=== PATIENT | female | born 1935 | race Caucasian/White ===

== ENCOUNTER 2020-08-22 14:22 | Outpatient (REF) | payer MEDICARE, SELFPAY ==
--- NOTE | 2020-08-22 | US_ITS ---
EXAMINATION: US EXTRACRANIAL CAROTID DUPLEX, BILATERAL CLINICAL INFORMATION: This is a 84-year-old female with coronary artery disease. Carotid artery disease. COMPARISON: Comparison is made to a study dated 12/13/2019 which demonstrated bilateral 50-79% internal carotid artery stenoses. TECHNIQUE: Real-time ultrasound and Doppler techniques (integrating B-mode 2-D vascular images, Doppler spectral analysis and color-flow Doppler imaging) were utilized to interrogate the extracranial carotid arteries, the vertebral arteries and proximal subclavian arteries bilaterally. The degree of stenosis is determined by criteria similar to NASCET. FINDINGS: Right Side: 1. There is moderate atherosclerotic plaque seen in the bifurcation/proximal ICA region. 2. The common carotid artery PSV proximally is 114 cm/s and distally 123 cm/s. 3. The proximal internal carotid artery velocities are 165 cm/s systolic and 33 cm/s diastolic. 4. The proximal external carotid artery PSV is 134 cm/s. 5. The vertebral artery shows antegrade flow. 6. The subclavian artery waveforms are normal. Left Side: 1. There is moderate atherosclerotic plaque seen in the bifurcation/proximal ICA region. 2. The common carotid artery PSV proximally is 117 cm/s and distally 136 cm/s. 3. The proximal internal carotid artery velocities are 181 cm/s systolic and 30 cm/s diastolic. 4. The proximal external carotid artery PSV is 194 cm/s. 5. The vertebral artery shows antegrade flow. 6. The subclavian artery waveforms are normal. US/US carotid duplex BI IMPRESSION: 1. RIGHT: Moderate, hemodynamically significant stenosis of the proximal right internal carotid artery corresponding to a 50-79% stenosis by velocity criteria. 2. LEFT: Moderate, hemodynamically significant stenosis of the proximal left internal carotid artery corresponding to a 50-79% stenosis by velocity criteria. 3. There is no change in the category severity of disease when compared to the previous study dated 12/13/2019 .
== END 2020-08-22 14:23 | disposition home or self-care (01) ==
LOC: HO.HMGCX 14:22
PROVIDERS: PCP Internal Medicine; Visit Provider Nurse Practitioner Family
DX: I25.10 Atherosclerotic heart disease of native coronary artery without angina pectoris (principal); I65.23 Occlusion and stenosis of bilateral carotid arteries
CPT/HCPCS: 93880

== ENCOUNTER → 2020-09-09 14:07 | Outpatient (BNVA) | payer MEDICARE, SELFPAY | PROVIDERS: PCP Internal Medicine; Referring Provider Internal Medicine; Visit Provider Internal Medicine | DX: I25.10 Atherosclerotic heart disease of native coronary artery without angina pectoris (principal); R06.02 Shortness of breath; I65.23 Occlusion and stenosis of bilateral carotid arteries; E78.5 Hyperlipidemia, unspecified; Z79.82 Long term (current) use of aspirin | CPT/HCPCS: 99212 ==

== ENCOUNTER 2020-09-11 16:14 | Outpatient (REF) | payer MEDICARE, SELFPAY ==
--- NOTE | 2020-09-11 16:18 | CT_ITS ---
EXAMINATION: CT CHEST WITHOUT CONTRAST CLINICAL INFORMATION: Right upper lobe lung cancer COMPARISON: Previous chest CT most recent February 2020 TECHNIQUE: Multidetector volumetric CT imaging of the chest was done. Axial MIP volume rendering provided. Sagittal and coronal reformatted images were obtained. This CT examination was performed using dose optimization techniques as appropriate, variously including the following: *Automated exposure control *Adjustment of mA and/or kV according to patient size (this includes techniques or standardized protocols for targeted exams where dose is matched to indication/reason for exam; i.e. 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 There is a parenchymal density measuring 0.8 x 1.6 mm adjacent to the surgical staple line in the right middle lobe axial image 167 series. This is stable and probably represents scarring. The lungs are otherwise clear. MEDIASTINUM: There is evidence of atherosclerotic disease. The heart does not appear enlarged. There is coronary artery calcification. The thoracic aorta is heavily calcified but normal in caliber. There are no enlarged hilar or mediastinal lymph nodes. PLEURA: There is no pleural effusion. No pleural mass or thickening. AXILLA: No lymphadenopathy. UPPER ABDOMEN: The gallbladder has been removed. OSSEOUS STRUCTURES: There are degenerative changes of the spine. CT/CT chest wo con IMPRESSION: Stable postsurgical changes following right upper lobe lobectomy.
== END 2020-09-11 16:15 | disposition home or self-care (01) ==
LOC: HO.CT 16:14
PROVIDERS: Visit Provider Surgery
DX: C34.11 Malignant neoplasm of upper lobe, right bronchus or lung (principal)
CPT/HCPCS: 71250

== ENCOUNTER 2020-09-16 11:29 | Outpatient (REF) | payer MEDICARE, SELFPAY ==
[2020-09-16 14:41] LABS: Anion Gap 13 (12-20); Blood Urea Nitrogen 25 mg/dL (9-16); Calcium 9.5 mg/dL (8.4-10.2); Carbon Dioxide 29 mmol/L (22-29); Chloride 103 mmol/L (96-108); Cholesterol 151 mg/dL; Estimated Glomerular Filt Rate 55; Glucose Fasting 85 mg/dL (60-99); HDL Cholesterol 54 mg/dL; LDL Cholesterol Calculated 62 mg/dl; Potassium 4.3 mmol/l (3.3-5.1); Sodium 141 mmol/L (135-145); Triglycerides 176 mg/dL
== END 2020-09-16 11:30 | disposition home or self-care (01) ==
LOC: HO.HMGCLDS 11:29
PROVIDERS: PCP Internal Medicine; Visit Provider Internal Medicine
DX: E78.5 Hyperlipidemia, unspecified (principal); I10 Essential (primary) hypertension; J45.909 Unspecified asthma, uncomplicated; E66.9 Obesity, unspecified
CPT/HCPCS: 80048; 80061

== ENCOUNTER → 2020-10-03 11:00 | Outpatient (BNVA) | payer MEDICARE, SELFPAY | PROVIDERS: PCP Internal Medicine; Referring Provider Internal Medicine; Visit Provider Surgery | DX: C34.11 Malignant neoplasm of upper lobe, right bronchus or lung (principal) | CPT/HCPCS: 99214 ==

== ENCOUNTER 2020-11-03 08:35 | Outpatient (REF) | payer MEDICARE, SELFPAY ==
--- NOTE | 2020-11-03 08:38 | MM_ITS ---
EXAMINATION: MM SCREENING DIGITAL BREAST TOMOSYNTHESIS, BILATERAL CLINICAL INFORMATION: Screening. Asymptomatic. The lifetime risk of breast cancer based on the Tyrer-Cuzick Model is under 1%. COMPARISON: Mammography: 08/17/2019, 07/17/2018, 06/28/2017 TECHNIQUE: Digital breast tomosynthesis is performed in both the craniocaudal and mediolateral oblique views along with computer-aided detection (CAD). Synthesized 2D images are generated from the tomosynthesis. Additional left MLO view is provided. Technologist notes technically challenging exam with positioning. Exam tailored to patient capabilities. FINDINGS: There are scattered areas of fibroglandular density (ACR BI-RADS breast composition Category b). There are no significant masses, abnormal calcifications, or other abnormalities. Parenchymal pattern is similar to prior studies. There are increased bilateral benign ductal secretory calcifications as well as some scattered benign round calcifications in each breast. Small circumscribed nodule mid upper right breast on MLO view is similar to prior exams. There is no developing density. No significant changes. MM/MM tomosynthesis screening BI IMPRESSION: No mammographic evidence of malignancy. ASSESSMENT: BI-RADS 2: Benign RECOMMENDATION: Routine annual mammography screening. This patient's information was entered into a reminder system with a target due date for their next mammogram.
== END 2020-11-03 08:36 | disposition home or self-care (01) ==
LOC: HO.MAMMO 08:35
PROVIDERS: PCP Internal Medicine; Visit Provider Internal Medicine
DX: Z12.31 Encounter for screening mammogram for malignant neoplasm of breast (principal)
CPT/HCPCS: 77063; 77067

== ENCOUNTER → 2020-12-08 08:30 | Outpatient (REF) | payer MEDICARE, SELFPAY ==
--- NOTE | ~2020-12-08 | US_ITS ---
EXAMINATION: US EXTRACRANIAL CAROTID DUPLEX, BILATERAL CLINICAL INFORMATION: This is an 84-year-old female with carotid stenosis or occlusion. Carotid artery disease. COMPARISON: Comparison is made to a previous study dated 08/22/2020 which demonstrated bilateral 50-79% internal carotid artery stenoses. TECHNIQUE: Real-time ultrasound and Doppler techniques (integrating B-mode 2-D vascular images, Doppler spectral analysis and color-flow Doppler imaging) were utilized to interrogate the extracranial carotid arteries, the vertebral arteries and proximal subclavian arteries bilaterally. The degree of stenosis is determined by criteria similar to NASCET. FINDINGS: Right Side: 1. There is moderate atherosclerotic plaque seen in the bifurcation/proximal ICA region. 2. The common carotid artery PSV proximally is 109 cm/s and distally 117 cm/s. 3. The proximal internal carotid artery velocities are 153 cm/s systolic and 22 cm/s diastolic. 4. The proximal external carotid artery PSV is 166 cm/s. 5. The vertebral artery shows antegrade flow. 6. The subclavian artery waveforms are normal. Left Side: 1. There is moderate atherosclerotic plaque seen in the bifurcation/proximal ICA region. 2. The common carotid artery PSV proximally is 94 cm/s and distally 113 cm/s. 3. The proximal internal carotid artery velocities are 160 cm/s systolic and 29 cm/s diastolic. 4. The proximal external carotid artery PSV is 190 cm/s. 5. The vertebral artery shows retrograde flow. 6. The subclavian artery waveforms are 123. US/US carotid duplex BI IMPRESSION: 1. RIGHT: Moderate, hemodynamically significant stenosis of the proximal right internal carotid artery corresponding to a 50-79% stenosis by velocity criteria. The category severity of disease appears unchanged when compared to the previous study dated 08/22/2020. 2. LEFT: Moderate, hemodynamically significant stenosis of the proximal left internal carotid artery corresponding to a 50-79% stenosis by velocity criteria. The category severity of disease appears unchanged when compared to the previous study dated 08/22/2020 3. There is an arrhythmia noted during the duplex portion of the examination. 4. It is now noted that the left vertebral artery is retrograde. Previously, this was antegrade. There may be a left subclavian steal developing.
--- NOTE | 2020-12-08 08:32 | CA_ITS ---
Transthoracic Echocardiogram Patient (Last, First, Middle): Dai Cook P Gender: Female Date of : 1935 Age: 84 Procedure Date: 12/08/2020 Procedure Type: Transthoracic Echocardiogram Location: OP Height: 157.48 cm Weight: 90.72 kg BSA: 1.91 m2 Heart Rate: bpm BP: 120 / 60 mmHg Resident Care Manager Rn: LAMAR Referring MD: Jaden Quesada MD Symptoms: I25.10 - Atherosclerotic heart disease of [place] coronary artery without angina pectoris Study Quality: Good ECG Rhythm: Sinus Conclusions: - The left ventricular systolic function is normal. The visually estimated ejection fraction is between 55-60%. - The basal inferior segment is hypokinetic. - There is mild calcification of the aortic valve. - No obvious valvular pathology seen on this study. Findings Left Ventricle Normal left ventricular cavity size. There is normal left ventricular wall thickness. The left ventricular systolic function is normal. The visually estimated ejection fraction is between 55-60%. Diastolic function is normal for age. Wall Motion Rest Echo Findings The basal inferior segment is hypokinetic. Right Ventricle Normal right ventricular cavity size and systolic function. Atria Both atria are normal in size. Aortic Valve There is a normal trileaflet aortic valve. There is mild calcification of the aortic valve. There is no aortic valve stenosis. There is no aortic valve regurgitation. Mitral Valve The mitral valve appears normal. There is trace mitral valve regurgitation. There is no mitral valve stenosis. Pulmonic Valve The pulmonic valve was not well visualized. Tricuspid Valve Normal tricuspid valve structure. There is mild tricuspid valve regurgitation. The pulmonary artery systolic pressure is normal. Great Vessels The aortic annulus, sinuses of valsalva, and asc aorta are normal in size. Venous The inferior vena cava is normal in size and collapses greater than 50% with inspiration. Pericardium/Pleural There is no evidence of pericardial effusion. Prior Study Comparison Changes noted compared to prior study dated: 03/01/2019. See comments on wall motion. Recommendations, Care & Conclusions No obvious valvular pathology seen on this study. Measurements 2D Linear Measurements IVSd: 1.03 0.6-0.9/0.6-1.0 cm LVIDd: 3.62 3.9-5.3/4.2-5.9 cm LVIDd Index: 1.90 2.4-3.2/2.2-3.1 cm/m2 LVIDs: 2.60 2.0-3.6 cm LVPWd: 1.02 0.7-1.1 cm Ao Root: 3.00 2.1-3.5 cm LA Diam: 3.40 2.7-3.8/3.0-4.0 cm LAIDs Index: 1.78 1.5-2.3 cm/m2 LV Mass: 140.24 67-162/88-224 g LV Mass Index: 73.42 43-95/49-115 g/m2 LVOT Diam: 2.00 3.0+(-)1.3 cm 2D Systolic Function EF 4C: 54.00 >55% EF 2C: 56.50 >55% EF BiP: 55.10 >55% Mitral Valve MV Pk E: 1.03 MV PK A: 1.28 MV Decel Time: 236.00 E/A: 0.80 E'Lateral: 6.96 E'Medial: 6.53 E/E' Med: 15.80 E/E' Lat: 14.80 PHT: 69.00 MVA PHT: 3.19 Decel Casey: 4.36 Aortic Valve AoV Pk [place]: 1.49 AoV Mn [place]: 0.98 AoV VTI: 0.36 AoV Pk Grad: 9.00 Aov Mn Grad: 4.00 RACHEL Cont.VTI: 2.26 LVOT LVOT Pk [place]: 1.07 LVOT Mn [place]: 0.74 LVOT VTI: 0.26 LVOT Pk Grad: 5.00 LVOT Mn Grad: 2.00 LVOT Diam: 2.00 LVOT Area: 3.14 Diastolic Function MV Pk E: 1.03 MV Pk A: 1.28 E/A: 0.80 E'Medial: 6.53 E/E' Med: 15.80 E' Laterial: 6.96 E/E' Lat: 14.80 Tricuspid Valve TR Pk [place]: 2.74 TR Pk Grad: 30.00 RA Press: 3.00 RVSP: 33.00 Great Vessels Aorta Ao Root-2D: 3.00 2.0-3.7 cm Ao Asc: 3.00 2.1-3.4 cm Ao Arch: 2.50 Updated in Other Vendor System with Status of Final Jaden Quesada MD electronically signed on 12/09/2020 1:52:06 PM with status of Final
== END ==
LOC: HO.CARD 08:30
PROVIDERS: Visit Provider Internal Medicine
DX: I65.23 Occlusion and stenosis of bilateral carotid arteries (principal); I25.10 Atherosclerotic heart disease of native coronary artery without angina pectoris
CPT/HCPCS: 93306; 93880

== ENCOUNTER → 2020-12-18 07:43 | Outpatient (BNVA) | payer MEDICARE, SELFPAY | PROVIDERS: PCP Internal Medicine; Visit Provider Internal Medicine | DX: I25.10 Atherosclerotic heart disease of native coronary artery without angina pectoris (principal); R06.02 Shortness of breath; E78.5 Hyperlipidemia, unspecified; I65.23 Occlusion and stenosis of bilateral carotid arteries; I49.9 Cardiac arrhythmia, unspecified | CPT/HCPCS: 93005; 99212 ==

== ENCOUNTER → 2021-01-15 08:57 | Outpatient (REF) | payer MEDICARE, SELFPAY ==
--- NOTE | 2021-01-15 11:15 | ECG_ITS ---
Hook-up date: 2021-01-15 09:11:00 Duration: 28:04:00 Test Indications: CARDIAC ARRHYTHMIA, UNSPECIFIED Medications: 380804 QRS complexes 269 Ventricular ectopics which represent <1 % of total QRS comp. 2344 Supraventricular ectopics which represent 2 % of total QRS comp. * Paced QRS complexs which represent % of total QRS comp. VENTRICULAR ECTOPY 267 Isolated 0 Bigeminal Cycles 1 Couplets 0 Runs 0 Beats in Runs * Beats LONGEST at * BPM at :: -- * Beats FASTEST at * BPM at :: -- SUPRAVENTRICULAR ECTOPY 1667 Isolated 154 Couplets 63 Runs 369 Beats in Runs 29 Beats LONGEST at 96 BPM at 07:53:36 2021-01-16 3 Beats FASTEST at 120 BPM at 21:46:42 2021-01-15 HEART RATES 51 MIN at 04:55:52 2021-01-16 76 AVG 106 MAX at 17:29:48 2021-01-15 LONGEST RR 1.8800 secs at 04:19:58 2021-01-16 S-T LEVELS Channel 1 - 128 mm at 09:11:00 2021-01-15 - 128 mm at 09:11:00 2021-01-15 Channel 2 - 128 mm at 09:11:00 2021-01-15 - 128 mm at 09:11:00 2021-01-15 Channel 3 - 128 mm at 02:83:01 -- - 128 mm at 02:83:01 Underlying rhythm is sinus with prolonged KS; Average ventricular rate 76/min; Frequent supraventricular ectopy (2%); Mostly isolated; longest run 29 beats at 96/min; Rare PVCs, isolated with one couplet; Patient diary not available for review. Referred By: Maurice Villagomez Overread By: MAURICE VILLAGOMEZ
== END ==
LOC: HO.CARD 08:57
PROVIDERS: PCP Internal Medicine; Visit Provider Internal Medicine
DX: I49.9 Cardiac arrhythmia, unspecified (principal)
CPT/HCPCS: 93226

== ENCOUNTER → 2021-06-22 08:52 | Outpatient (BNVA) | payer MEDICARE, SELFPAY | PROVIDERS: PCP Internal Medicine; Visit Provider Internal Medicine | DX: I25.10 Atherosclerotic heart disease of native coronary artery without angina pectoris (principal); I65.23 Occlusion and stenosis of bilateral carotid arteries; I49.9 Cardiac arrhythmia, unspecified; E78.5 Hyperlipidemia, unspecified; R06.02 Shortness of breath | CPT/HCPCS: 99212 ==

== ENCOUNTER 2021-08-07 11:07 | Outpatient (REF) | payer MEDICARE, SELFPAY ==
--- NOTE | ~2021-08-07 | XR_ITS ---
EXAMINATION: XR CERVICAL SPINE CLINICAL INFORMATION: Radiculopathy. COMPARISON: None TECHNIQUE: 3 views of the cervical spine were obtained. FINDINGS: There is normal cervical lordosis. There is loss of C5-C6, C6-C7 disc levels with moderate ventral spondylosis. There is moderate left facet joint hypertrophy and arthropathy involving C2-C3 through C6-C7 disc levels. Right facet joint arthropathy at C2-C3 disc level is noted as well. No acute fracture or dislocation seen. The prevertebral soft tissues are normal. XR/XR cervical spine 2V IMPRESSION: No acute fracture or dislocation. Mild degenerative disc changes C5-C6, C6-C7 disc levels with ventral spondylosis. No visible acute fracture, dislocation or lytic process seen. Moderate left facet joint arthropathy and hypertrophy as described above.
== END 2021-08-07 11:08 | disposition home or self-care (01) ==
LOC: HO.HMGCX 11:07
PROVIDERS: PCP Internal Medicine; Visit Provider Internal Medicine
DX: M54.12 Radiculopathy, cervical region (principal); R29.898 Other symptoms and signs involving the musculoskeletal system
CPT/HCPCS: 72040

== ENCOUNTER 2021-08-20 09:29 | Outpatient (REF) | payer MEDICARE, SELFPAY ==
--- NOTE | ~2021-08-20 | MR_ITS ---
EXAMINATION: MR CERVICAL SPINE WITHOUT CONTRAST CLINICAL INFORMATION: Cervical radiculopathy. COMPARISON: Cervical spine radiographs 08/07/2021. TECHNIQUE: MRI of the cervical spine was obtained using routine sequences without contrast. FINDINGS: There is slight anterolisthesis of C7 on T1 and T1 on T2. Vertebral heights are preserved. No acute bone marrow signal changes. There is slight loss of intervertebral disc height and T2 signal intensity at multiple levels related to disc degeneration. There is no cord compression or abnormal intramedullary signal changes. The cervicomedullary junction is normal. Limited visualization of the posterior fossa reveals no abnormal finding. Occipital condyles and lateral C1 masses are intact. There is degenerative arthrosis of the atlantodental joint and both C1-C2 facet joints. At C2-C3 the annular contour is normal. There is asymmetric degenerative arthrosis of the right facet joint. Mild right neuroforaminal encroachment. At C3-C4 there is a slightly bulging disc. No canal stenosis. Uncovertebral joint spurring and facet degenerative change causes moderate left and mild right neuroforaminal encroachment. At C4-C5 there is a diffusely bulging disc. No canal stenosis. Uncovertebral joint spurring and facet degenerative change causes moderate bilateral neuroforaminal encroachment. At C5-C6 there is a bulging disc and buckling of the ligamenta flava. Mild canal stenosis. Uncovertebral joint spurring and facet degenerative change causes moderate right and mild left neuroforaminal encroachment. At C6-C7 there is a bulging disc and buckling of ligamenta flava causing moderate canal stenosis. Uncovertebral joint spurring and facet degenerative change causes moderate to severe bilateral neuroforaminal encroachment. At C7-T1 there is a pseudodisc bulge. No canal stenosis. Bilateral facet degenerative change. Mild bilateral neuroforaminal encroachment. Visualized soft tissues of the neck are normal. MR/MR cervical spine wo con IMPRESSION: There is multilevel degenerative spondylosis of the cervical spine. Moderate canal stenosis at C6-C7 and mild canal stenosis at C5-C6. No cord compression or abnormal intramedullary signal changes. There are varying degrees of neuroforaminal encroachment related to uncovertebral joint spurring and facet degenerative change as described above.
== END 2021-08-20 09:30 | disposition home or self-care (01) ==
LOC: HO.MRI 09:29
PROVIDERS: Visit Provider Internal Medicine
DX: M54.12 Radiculopathy, cervical region (principal); R29.898 Other symptoms and signs involving the musculoskeletal system
CPT/HCPCS: 72141

== ENCOUNTER 2021-11-19 12:04 | Outpatient (REF) | payer MEDICARE, SELFPAY ==
--- NOTE | ~2021-11-19 | MM_ITS ---
EXAMINATION: MM SCREENING DIGITAL BREAST TOMOSYNTHESIS, BILATERAL CLINICAL INFORMATION: Screening. Asymptomatic. COMPARISON: Mammography: 11/03/2020, 08/17/2019, 07/17/2018 TECHNIQUE: Digital breast tomosynthesis is performed in both the craniocaudal and mediolateral oblique views along with computer-aided detection (CAD). Synthesized 2D images are generated from the tomosynthesis. FINDINGS: There are scattered areas of fibroglandular density (ACR BI-RADS breast composition Category b). There are no significant masses, abnormal calcifications, or other abnormalities. There are bilateral ductal secretory calcifications again demonstrated. Dermal lesions are again seen overlying the mid medial and posterior inferior right breast, respectively. Tiny circumscribed nodule central upper right breast on MLO view is stable. No significant changes. MM/MM tomosynthesis screening BI IMPRESSION: No mammographic evidence of malignancy. ASSESSMENT: BI-RADS 2: Benign RECOMMENDATION: Routine annual mammography screening. This patient's information was entered into a reminder system with a target due date for their next mammogram.
== END 2021-11-19 12:05 | disposition home or self-care (01) ==
LOC: HO.MAMMO 12:04
PROVIDERS: PCP Internal Medicine; Visit Provider Internal Medicine
DX: Z12.31 Encounter for screening mammogram for malignant neoplasm of breast (principal)
CPT/HCPCS: 77063; 77067

== ENCOUNTER 2021-11-27 12:42 | Outpatient (REF) | payer MEDICARE, SELFPAY ==
--- NOTE | ~2021-11-27 | XR_ITS ---
EXAMINATION: XR FOOT, LEFT CLINICAL INFORMATION: 3 views left foot COMPARISON: None TECHNIQUE: AP, lateral, and oblique views of the left foot. FINDINGS: The ankle mortise and subtalar joints are normal. There is a moderate size calcaneal heel and retrocalcaneal enthesophytes. No visible acute fracture or dislocation seen. There is a moderate dorsal distal foot soft tissue swelling. XR/XR foot LT min 3V IMPRESSION: Moderate size calcaneal heel and retrocalcaneal enthesophytes. Mild dorsal distal foot soft tissue swelling. No underlying fracture or dislocation seen.
== END 2021-11-27 12:43 | disposition home or self-care (01) ==
LOC: HO.HMGCX 12:42
PROVIDERS: PCP Internal Medicine; Visit Provider Internal Medicine
DX: M79.89 Other specified soft tissue disorders (principal)
CPT/HCPCS: 73630

== ENCOUNTER 2021-12-08 11:07 | Outpatient (REF) | payer MEDICARE, SELFPAY ==
--- NOTE | ~2021-12-08 | US_ITS ---
EXAMINATION: US VENOUS ULTRASOUND WITH DOPPLER LOWER EXTREMITY, LEFT CLINICAL INFORMATION: Left leg swelling. COMPARISON: Bilateral lower extremity venous Doppler exam 02/14/2019 TECHNIQUE: Ultrasound of the deep veins is performed from the hip to the calf with compression sonography and color and pulse Doppler assessment. Spectral analysis with color-flow imaging is performed. FINDINGS: There is normal venous compression and respiratory variation and augmented flow. The visualized common femoral vein, superficial femoral vein, profunda femoral vein, popliteal vein, and the trifurcation region shows no evidence of deep venous thrombosis. There is no significant popliteal fossa cyst. If the patient's symptoms persist, followup ultrasound in 5 days 7 days might be of value to exclude proximal propagation from a non-visualized calf vein. US/US venous duplex LE IMPRESSION: No DVT demonstrated in the left lower extremity.
== END 2021-12-08 11:08 | disposition home or self-care (01) ==
LOC: HO.HMGCX 11:07
PROVIDERS: PCP Internal Medicine; Visit Provider Internal Medicine
DX: M79.89 Other specified soft tissue disorders (principal)
CPT/HCPCS: 93971

== ENCOUNTER 2021-12-18 09:04 | Outpatient (REF) | payer MEDICARE, SELFPAY ==
--- NOTE | ~2021-12-18 | CT_ITS ---
EXAMINATION: CT CHEST WITH CONTRAST CLINICAL INFORMATION: Malignant neoplasm of upper lobe right bronchus. COMPARISON: CT chest 09/11/2020. TECHNIQUE: Multidetector volumetric CT imaging of the chest was obtained after the administration of 50 mL of Omnipaque 350 intravenous contrast without immediate adverse reactions. Axial MIP volume rendering provided. Sagittal and coronal reformatted images were obtained. This CT examination was performed using dose optimization techniques as appropriate, variously including the following: *Automated exposure control *Adjustment of mA and/or kV according to patient size (this includes techniques or standardized protocols for targeted exams where dose is matched to indication/reason for exam; i.e. 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 It measures same size as before. It is best visualized on axial image 62/6. MEDIASTINUM: The thyroid lobes are symmetrical and normal. The central trachea and the bronchi are widely patent. There is atherosclerotic calcification seen throughout the thoracic arch. The heart size is normal. There are coronary artery calcifications. No pericardial effusion seen. PLEURA: There is no pleural effusion. No pleural mass or thickening. AXILLA: No lymphadenopathy. UPPER ABDOMEN: Visualized liver, spleen, pancreas and bilateral adrenal glands are unremarkable. Gallbladder has been surgically removed. OSSEOUS STRUCTURES: There is exaggerated thoracic kyphosis with moderate ventral bridging osteophytosis of the dorsal spine. No aggressive lytic process seen. CT/CT chest w con IMPRESSION: Right upper lobe scar along mediastinum is stable compared to last exam of 2019. No new lung nodules, mass or consolidation. No abnormal mediastinal adenopathy. Fleischner guidelines were followed.
[2021-12-18] MEDS: iohexoL 350 MG/ML 100 ML INFUS..BTL 65 ML IV (09:57)
== END 2021-12-18 09:05 | disposition home or self-care (01) ==
LOC: HO.CT 09:04
PROVIDERS: PCP Internal Medicine; Visit Provider Internal Medicine Medical Oncology
DX: C34.11 Malignant neoplasm of upper lobe, right bronchus or lung (principal)
CPT/HCPCS: 71260; Q9967

== ENCOUNTER 2021-12-22 10:32 | Outpatient (REF) | payer MEDICARE, SELFPAY ==
--- NOTE | ~2021-12-22 | XR_ITS ---
EXAMINATION: XR SHOULDER, LEFT CLINICAL INFORMATION: Pain COMPARISON: Previous x-ray July 2017 TECHNIQUE: Three views of the left shoulder. FINDINGS: Bone alignment is normal. No fracture or dislocation is seen. There is arthritis at the acromioclavicular and glenohumeral joints. Soft tissues are unremarkable. XR/XR shoulder LT min 2V IMPRESSION: Mild arthritis.
== END 2021-12-22 10:33 | disposition home or self-care (01) ==
LOC: HO.HMGCX 10:32
PROVIDERS: PCP Internal Medicine; Visit Provider Internal Medicine
DX: M25.512 Pain in left shoulder (principal)
CPT/HCPCS: 73030

== ENCOUNTER 2021-12-28 08:48 | Outpatient (REF) | payer MEDICARE, SELFPAY ==
[2021-12-28 11:02] LABS: Cholesterol 132 mg/dL; HDL Cholesterol 62 mg/dL; LDL Cholesterol Calculated 52 mg/dl; Triglycerides 90 mg/dL
== END 2021-12-28 08:49 | disposition home or self-care (01) ==
LOC: HO.LAB 08:48
PROVIDERS: PCP Internal Medicine; Referring Provider Internal Medicine; Visit Provider Internal Medicine
DX: I65.23 Occlusion and stenosis of bilateral carotid arteries (principal); I25.10 Atherosclerotic heart disease of native coronary artery without angina pectoris; E78.5 Hyperlipidemia, unspecified; I49.9 Cardiac arrhythmia, unspecified; R60.0 Localized edema; Z79.899 Other long term (current) drug therapy; Z87.891 Personal history of nicotine dependence
CPT/HCPCS: 36415; 80061; 93005; 99212

== ENCOUNTER → 2021-12-29 10:37 | Outpatient (BNVA) | payer MEDICARE, SELFPAY | PROVIDERS: PCP Internal Medicine; Visit Provider Physician Assistant | DX: M25.512 Pain in left shoulder (principal); S46.002A Unspecified injury of muscle(s) and tendon(s) of the rotator cuff of left shoulder, initial encounter | CPT/HCPCS: 99202 ==

== ENCOUNTER 2022-01-26 12:50 | Outpatient (REF) | payer MEDICARE, SELFPAY ==
--- NOTE | ~2022-01-26 | US_ITS ---
EXAMINATION: US EXTRACRANIAL CAROTID DUPLEX, BILATERAL CLINICAL INFORMATION: COMPARISON: None TECHNIQUE: Real-time ultrasound and Doppler techniques (integrating B-mode 2-D vascular images, Doppler spectral analysis and color-flow Doppler imaging) were utilized to interrogate the extracranial carotid arteries, the vertebral arteries and proximal subclavian arteries bilaterally. The degree of stenosis is determined by criteria similar to NASCET. FINDINGS: Right Side: 1. There is moderate calcified atherosclerotic plaque seen in the bifurcation/proximal ICA region. 2. The common carotid artery PSV proximally is 111 cm/s and distally 121 cm/s. 3. The proximal internal carotid artery velocities are 164 cm/s systolic and 24.9 cm/s diastolic. 4. The proximal external carotid artery PSV is 166 cm/s. 5. The vertebral artery shows antegrade flow. 6. The subclavian artery waveforms are normal. Left Side: 1. There is moderate atherosclerotic plaque seen in the bifurcation/proximal ICA region. 2. The common carotid artery PSV proximally is 125 cm/s and distally 20.6 cm/s. 3. The proximal internal carotid artery velocities are 87.2 cm/s systolic and 13.4 cm/s diastolic. 4. The proximal external carotid artery PSV is 207 cm/s suggesting hemodynamically significant stenosis. 5. The vertebral artery shows antegrade flow. 6. The subclavian artery waveforms are normal. US/US carotid duplex BI IMPRESSION: 1. RIGHT: Moderate, hemodynamically significant stenosis of the proximal right internal carotid artery corresponding to a 50-79% stenosis by velocity criteria. 2. LEFT: Minimal, non-hemodynamically significant stenosis of the proximal left internal carotid artery corresponding to a 0-49% stenosis by velocity criteria. 3. There is no change in the category severity of disease on the right when compared to the previous study dated 11/07/2020. On the present study by velocity criteria the category of disease is now minimal on the left.
== END 2022-01-26 12:51 | disposition home or self-care (01) ==
LOC: HO.HMGCX 12:50
PROVIDERS: Visit Provider Internal Medicine
DX: I65.23 Occlusion and stenosis of bilateral carotid arteries (principal)
CPT/HCPCS: 93880

== ENCOUNTER 2022-04-16 07:16 | Outpatient (REF) | payer MEDICARE, SELFPAY ==
--- NOTE | ~2022-04-16 | XR_ITS ---
EXAMINATION: XR FOOT, LEFT CLINICAL INFORMATION: Pain COMPARISON: Left foot radiograph from 11/19/2021 TECHNIQUE: AP, lateral, and oblique views of the left foot. FINDINGS: No acute visible fracture or dislocation. Mild multi joint degenerative changes. Plantar calcaneal heel spur. Enthesopathy at the Achilles tendon insertion site. Spurring the dorsal midfoot. Joint spaces and alignment are otherwise maintained. Soft tissue prominence of the dorsal forefoot. XR/XR foot LT min 3V IMPRESSION: 1. No acute visible fracture or dislocation. 2. Mild multi joint degenerative changes. 3. Soft tissue prominence of the dorsal forefoot.
== END 2022-04-16 07:17 | disposition home or self-care (01) ==
LOC: HO.HOSX 07:16
PROVIDERS: Visit Provider Physician Assistant
DX: M77.52 Other enthesopathy of left foot and ankle (principal)
CPT/HCPCS: 73630; 99202

== ENCOUNTER 2022-05-25 10:39 | Outpatient (REF) | payer MEDICARE, SELFPAY ==
[2022-05-25 12:17] LABS: Alanine Aminotransferase 26 U/L (0-31); Albumin Level 4.4 g/dL (3.5-5.0); Alkaline Phosphatase 89 U/L (39-117); Anion Gap 15 (12-20); Aspartate Amino Transferase 25 U/L (5-31); Bilirubin Total 0.6 mg/dL (0.0-1.0); Blood Urea Nitrogen 20 mg/dL (9-16); Calcium 9.6 mg/dL (8.4-10.2); Carbon Dioxide 22 mmol/L (22-29); Chloride 110 mmol/L (96-108); Estimated Glomerular Filt Rate > 60; Glucose Random 88 mg/dL (60-115); Sodium 143 mmol/L (135-145); Total Protein 7.2 g/dL (6.5-8.0)
== END 2022-05-25 10:40 | disposition home or self-care (01) ==
LOC: HO.HMGCLDS 10:39
PROVIDERS: Visit Provider Internal Medicine
DX: J45.909 Unspecified asthma, uncomplicated (principal); M47.812 Spondylosis without myelopathy or radiculopathy, cervical region; M79.89 Other specified soft tissue disorders; C34.91 Malignant neoplasm of unspecified part of right bronchus or lung
CPT/HCPCS: 36415; 80053

== ENCOUNTER 2022-06-21 08:24 | Observation (INO) | payer MEDICARE, SELFPAY ==
[2022-06-21] VITALS (8 sets, daily range): BP systolic 136–197; BP diastolic 61–94; PULSE 58–75; RESP 18–24; TEMP 36.6; O2SAT 95–98; BMI 36.6
--- NOTE | ~2022-06-21 | MR_ITS ---
EXAMINATION: MR BRAIN WITHOUT CONTRAST CLINICAL INFORMATION: Dizziness. COMPARISON: Head CT from 06/21/2022. Brain MRI dated 02/01/2013. TECHNIQUE: Multiplanar, multisequence imaging of the brain was performed without contrast. FINDINGS: No diffusion abnormalities are identified to suggest an acute infarct. Generalized parenchymal volume loss noted without evidence of hydrocephalus. No mass effect or midline shift is seen. Zvoh-nw-eekkldbl scattered foci of T2 hyperintense signal change noted in the cerebral white matter and brainstem which may be due to chronic microangiopathy. No extra-axial fluid collections are seen. The cerebellum is normal. The gradient refocused acquisition demonstrates no pathologic magnetic susceptibility artifact to indicate underlying acute or chronic blood products. There is focal encephalomalacia in the high right parietal lobe in the postcentral gyrus, presumably due to a chronic infarct. The craniovertebral junction and midline structures are normal. The major intracranial flow voids at the level of the [place] are preserved. The dural venous sinus flow voids are maintained. There is a mild amount of fluid in the dependent mastoid air cells bilaterally. The paranasal sinuses are fairly well aerated. 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 A heterogeneous T2 hyperintense and T1 low signal lesion is visible in the right parietal calvarium at the high convexity with a slightly exophytic component corresponding to the lucent lesion seen on the CT examination containing an internal trabecular pattern, measuring approximately 1.1 cm in size. As mentioned, this finding was not visible on prior imaging from 02/01/2013. MR/MR head/brain wo con IMPRESSION: No acute intracranial process. Chronic high right parietal lobe infarct. [id number] chronic white matter microangiopathy. Indeterminate 1.1 cm high right parietal calvarial lesion, new when compared to imaging from 01/2013. Given that this osseous lesion is a new finding, a nuclear bone scan would be recommended in followup for further evaluation. Imaging findings reported to RENEE Alexander at 3:35 PM on 06/21/2022.
--- NOTE | ~2022-06-21 | CT_ITS ---
EXAMINATION: CT HEAD WITHOUT CONTRAST.. CHEST X-RAY CLINICAL INFORMATION: Dizziness x3 days COMPARISON: CT brain 02/01/2013 TECHNIQUE: 5 m thin axial and reformatted 2 mm thin sagittal and coronal images of brain were obtained. DLP [id number].. This CT examination was performed using dose optimization technique as appropriate, variously including the following: Automated exposure control Adjustment of MA and/or KV according to patient size(this includes techniques or standardized protocols for targeted exams where dose is matched to indication/reason for exam; extremities or head. Use of iterative reconstruction techniques. Chest 2 views FINDINGS: Brain: There is no acute intra-axial, extra-axial bleed or midline shift. There is a subtle hypodensity in the midbrain on axial image 18/2, new since the last exam 2012. There is no acute infarction in evolution. The ni to white matter differentiation maintained normal. No edema seen. The lateral ventricles are symmetrical in size and configuration without enlargement. Bone windows reveal 1.2 cm intramedullary right frontal bone no other calvarial lesions seen. Bilateral paranasal sinuses and mastoid air cells are well-aerated. Chest x-ray CT/CT head/brain wo con IMPRESSION: No acute intracranial bleed or infarction. Subtle hypodensity central midbrain question artifact versus lesion. There is a 1.2 cm right frontal bone lesion, new since CT 02/01/2013. Recommend MRI correlation for both the lesions.
[2022-06-21 10:02] LABS: MANUAL DIFF FLAG NO
[2022-06-21 10:06] LABS: Basophils Absolute Auto 0.1 X10*3/uL (0.0-0.2); Basophils Percent Auto 0.7 % (0-2); Eosinophils Absolute Auto 0.1 X10*3/uL (0.0-0.4); Eosinophils Percent Auto 1.9 % (0-4); Hematocrit 46.3 % (37.0-47.0); Hemoglobin 14.8 g/dl (12.0-16.0); Imm Gran Abs Auto 0.02 X10*3/uL (0.00-0.03); Imm Gran Pct Auto 0.3 % (0.0-0.4); Lymphocytes Percent Auto 27.1 % (20-40); Mean Corpuscular Hemoglobin 30.3 pg (27.0-33.0); Mean Corpuscular Volume 94.7 fL (80.0-98.0); Mean Platelet Volume 10.1 fL (9.4-12.3); Monocytes Absolute Auto 0.5 X10*3/uL (0.1-1.2); Monocytes Percent Auto 6.8 % (2-11); Neutrophils Absolute Auto 4.6 x10*3/uL (2.0-8.3); Neutrophils Percent Auto 63.2 % (45-73); Platelet Count 284 X10*3/uL (160-400); Red Blood Count 4.89 X10*6/uL (4.20-5.50); Red Cell Distribution Width 15.5 % (11.0-16.0); White Blood Count 7.2 X10*3/uL (4.8-10.8)
[2022-06-21 10:29] LABS: Anion Gap 15 (12-20); Blood Urea Nitrogen 19 mg/dL (9-16); Calcium 9.7 mg/dL (8.4-10.2); Carbon Dioxide 26 mmol/L (22-29); Chloride 107 mmol/L (96-108); Creatinine Clr Calc Pharmacy 47.5; Estimated Glomerular Filt Rate > 60; Glucose Random 98 mg/dL (60-115); Potassium 4.1 mmol/L (3.3-5.1); Sodium 144 mmol/L (135-145)
--- NOTE | 2022-06-21 10:40 | ECG_ITS ---
Test Reason : DIZZINESS Blood Pressure : / mmHG Vent. Rate : 059 BPM Atrial Rate : 059 BPM P-R Int : 246 ms QRS Dur : 090 ms QT Int : 444 ms P-R-T Axes : 078 048 099 degrees QTc Int : 439 ms Sinus bradycardia with 1st degree A-V block with Premature atrial complexes Cannot rule out Anterior infarct (cited on or before 05-DEC-2017) Abnormal ECG When compared with ECG of 05-DEC-2017 14:26, Premature ventricular complexes are no longer Present Premature atrial complexes are now Present [place] interval has increased Vent. rate has decreased BY 50 BPM Referred By: Tesha Alexander Electronically Signed By:RHONDA OLIVIA
[2022-06-21 11:05] LABS: Alanine Aminotransferase 28 U/L (0-31); Albumin Level 4.1 g/dL (3.5-5.0); Alkaline Phosphatase 93 U/L (39-117); Aspartate Amino Transferase 30 U/L (5-31); Bilirubin Direct 0.2 mg/dL (0.0-0.5); Bilirubin Total 0.5 mg/dL (0.0-1.0); Magnesium 1.7 mg/dL (1.6-2.6); Total Protein 6.7 g/dL (6.5-8.0)
[2022-06-21 11:18] LABS: B Type Natriuretic Peptide 64 pg/mL (<100); Troponin-I High Sensitivity 28.7 ng/L (<3.5-17.0)
--- NOTE | 2022-06-21 12:50 | ED_ITS ---
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 She is currently being treated with Ciprodex for an outer ear infection although reports she does not feel like it is getting any better. She reports that she woke up at 02:00 to use the bathroom and she felt like she was going to fall over and she had moderate amounts of nausea and vomiting. She reports ?I have never vomited like that in my life and I have not vomited like that any years?. She reports she was able to go to the bathroom and her helped her back into the bed. Then she went back to sleep when she woke up in the morning she still felt dizzy and then it resolved and then it returned and then resolve. Then the next day on Tuesday when she woke up she was still dizzy and they were at a campsite therefore they came back home. She reports she did not come yesterday because the dizziness resolved. Then this morning again when she woke up around 6 in the morning she was dizzy therefore she came here for further evaluation treatment. She denies any changes in vision. She denies any headaches, recent falls or trauma or head strike, chest pain or shortness of breath, dyspnea on exertion, orthopnea, palpitations, paresthesias, fevers, sore throat, cough, sputum production, nausea/vomiting/diarrhea constipation, black or bloody stools, abdominal pain, flank pain, dysuria, hematuria, abnormal vaginal discharge, lower extremity edema or calf tenderness, sick contacts or any other symptoms complaints or concerns at this time. MD elicited complaint: dizziness and difficulty walking Onset (ago): day(s) (2 days since Tuesday 2am ) Timing: awoke with symptoms and intermittent Severity: moderate Description: off-balance and difficulty walking Context: at rest History of similar symptoms: No Exacerbating factors: movement/ambulation, change in body position and standing Relieving factors: nothing Associated symptoms: ear discomfort (Currently being treated for ear infection) Related Data Home Medications Medication Instructions Recorded Confirmed aspirin 81 mg tablet,delayed 81 mg PO DAILY 09/09/20 06/21/22 release ascorbate calcium (vitamin C) 500 500 mg PO DAILY 09/16/20 06/21/22 mg tablet cholecalciferol (vitamin D3) 25 25 mcg PO DAILY 09/16/20 06/21/22 mcg (1,000 unit) capsule ciprofloxacin 0.3 %-dexamethasone 1 drp otic (ears) BID 05/25/22 06/21/22 0.1 % ear drops,suspension Previous Rx's Medication Instructions Recorded albuterol sulfate 90 mcg/actuation 2 puff inhalation DAILY PRN 08/11/21 aerosol inhaler bronchospasm 30 days #18 grams fluticasone furoate 200 1 inh PO DAILY 90 days #180 ea 02/15/22 mcg-vilanterol 25 mcg/dose inhalation powder (Breo Ellipta) alirocumab 75 mg/mL subcutaneous 75 mg subcut Q2W 90 days #7 mL 05/25/22 pen injector (Praluent Pen) Allergies Allergy/AdvReac Type Severity Reaction Status Date / Time [id number] Reductase Allergy Mild MENTAL Verified 05/25/22 09:55 Inhibitor CHANGES [[id number] REDUCTASE INHIBITOR] rosuvastatin [Crestor] Allergy Unknown weakness,muscle Verified 05/25/22 09:55 aches Review of Systems Review of Systems: Constitutional : No Fever, No Chills, No Night Sweats, No Fatigue, No Malaise ENT/Mouth : + Ear Pain, No Nasal Congestion, No Sinus Pain, No sore throat, No Rhinorrhea Eyes: No Eye Pain, No Swelling, No Redness, No Foreign Body, No Discharge, No Vision Changes Cardiovascular : No Chest Pain, No SOB, No Dyspnea on Exertion, No Orthopnea, No Palpitations Respiratory : No Cough, No Sputum, No Wheezing, No Dyspnea Gastrointestinal : No Nausea, No Vomiting, No Diarrhea, No Constipation, No abdominal Pain, No Hematochezia, No Melena Genitourinary : No Dysuria, No Urinary Frequency, No Urinary Incontinence, No Urgency, No Flank Pain Musculoskeletal : No joint pain, No Myalgias Skin : No lacerations Neuro : + dizziness/feeling off balance, No Focal weakness, no general weakness, No Numbness, No Paresthesias, No Loss of Consciousness, No Headache Yes all other systems are reviewed and are negative [facility] Past Medical History Attestation statement: The following information was validated with the patient. Source: old records reviewed and nursing notes reviewed Medical History Asthma Atherosclerotic cardiovascular disease Carotid stenosis, bilateral Cerebrovascular accident, embolic FH: total knee replacement Hypertension Obesity Other and unspecified hyperlipidemia Pulmonary embolism Surgical History History of appendectomy History of cholecystectomy History of hysterectomy History of lobectomy of lung History of total right hip replacement Family History Family History Father Cancer Mother Breast cancer Cerebral aneurysm Social History Social History Housing: House Alcohol intake: never Patient Tobacco Use Status: Former Tobacco user Quit Date: 10+ years ago Tobacco use type: Cigarette Years Smoked: 50 years e-Cigarette/Vaping Use: Never Used Advance Directives: Yes Advance Directives Information Provided: No Advance Directives on File: No service: No Current occupational status: retired Cognitive needs: No Hearing needs: No Vision needs: Yes Physical Exam Vital Signs: Vital Signs: Last Vital Signs Temp 98 F 06/21/22 08:31 Pulse 61 06/21/22 15:45 Resp 18 06/21/22 15:45 BP 186/86 H 06/21/22 15:45 Pulse Ox 98 06/21/22 15:45 O2 Del Method 06/21/22 15:45 BMI result Body Mass Index 36.6 Vital signs have been reviewed as normal and appeared to be correct. Blood pressure 136/91 Heart rate normal. Respiration rate normal. Temperature normal. Oxygen saturation normal. Appearance: Alert. Oriented X3. No acute distress. Head: Normal external exam. Normocephalic. Atraumatic. Able to rotate head bilaterally. Eyes: PERRLA. EOMI. No nystagmus noted. Conjunctiva and sclera normal. Eyelids normal. Corneal reflex normal. ENT: Bilateral external ear canal erythematous with drainage noted and tenderness palpation with manipulation of the pinna and tragus consistent with otitis externa. Unable to visualize the tympanic membranes. Hearing normal. Pharynx normal. Uvula midline. tongue midline. Moist mucous membranes. No trismus noted. No drooling noted. No muffled voice noted. No nystagmus noted. Neck: Normal inspection. Neck supple. FROM. No adenopathy. Trachea midline. Thyroid Normal. No meningeal signs. No neck mass noted. CVS: Normal heart rate and rhythm. Heart sound normal. No murmurs noted. Pulses normal throughout. Respiratory: No respiratory distress. Painless inspiration. Breath sounds normal. No wheezes/rales/rhonchi noted. Chest nontender. No accessory muscle usage noted or decreased air movement noted. Abdomen: Soft and nontender. Bowel sounds normal in all 4 quadrants. No distention noted. No organomegaly noted. No visible injury noted. Back: No CVA tenderness. Full range of motion noted. Skin: Skin warm and dry. Normal skin color. Normal skin turgor. No rashes/lesions/lacerations noted. Extremities: No lower extremity edema. Extremities exhibit normal range of motion. Extremities nontender. Able to shrug shoulders bilaterally and keep up against resistance. Neuro: Oriented X 3. No motor deficit. No sensory deficit. Reflexes normal. Moving all extremities. No focal motor deficits. Cranial nerves II-XI intact bilaterally. Facial strength normal. Normal cognition. Speech normal. Patient walks with her cane and appears unsteady although no deficits noted and has been reports this is how she normally walks and patient agrees. Strength 5/5 throughout. No pronator drift. No tremor noted. No fasciculations noted. No rigidity noted. Muscle tone normal throughout. No asterixis noted. Ivtkrm-zc-lutk test normal. Heel to nguyen test normal. Tandem gait normal. Does not sway with eyes open. Romberg test negative. Rapid alternating movement upper extremity normal. Rapid alternating movement lower extremity normal. Hand drop from overhead Misses face. NIHSS score 0. 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 She is currently being treated with Ciprodex for an outer ear infection although reports she does not feel like it is getting any better. She reports that she woke up at 02:00 to use the bathroom and she felt like she was going to fall over and she had moderate amounts of nausea and vomiting. She reports ?I have never vomited like that in my life and I have not vomited like that any years?. She reports she was able to go to the bathroom and her helped her back into the bed. Then she went back to sleep when she woke up in the morning she still felt dizzy and then it resolved and then it returned and then resolve. Then the next day on Tuesday when she woke up she was still dizzy and they were at a campsite therefore they came back home. She reports she did not come yesterday because the dizziness resolved. Then this morning again when she woke up around 6 in the morning she was dizzy therefore she came here for further evaluation treatment. On exam patient is alert oriented x3. No focal neuro deficits are noted. Normal steady gait with her cane despite her reported she feels off-balance. and her agree that this is her normal gait she is at baseline. Therefore at this time patient not a tPA candidate as symptoms started on Tuesday at 02:00am and she has non disabling symptoms at this time. NIH SS score 0. Plan: Labs, chest x-ray, EKG, CT scan of brain, orthostatic vitals and re- evaluate. Reevaluation(s) Reevaluation #1: - labs return and patient's BUN 19. Troponin 28.7 therefore will repeat. Otherwise all other labs are within normal limits. - EKG is sinus bradycardia with first-degree AV block similar compared to prior EKGs. - CT scan of brain without contrast revealed no acute intracranial bleed or infarct although subtle hypodensity central mid brain questioning artifact versus lesion. There is a 1.2 cm right frontal bone lesion new since CT 02/01/2013 recommending MRI for both of the lesions. - therefore MRI ordered at this time. Also discussing this case with Zeenat Schuster to further investigate. Time: 13:08 Reevaluation #2: - MRI of brain negative for acute intracranial process. Chronic high right parietal lobe infarct. 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 Indeterminate 1.1 cm high right parietal calvarial lesion, new when compared to imaging from 01/2013. Given that this osseous lesion is a new find ing, a nuclear bone scan would be recommended in followup for further evaluation. - therefore I discussed this case with Dr. Zamora and Helen Treadwell nurse practitioner and we will admit the patient due to dizziness, obtain blood cultures and lactate. Start the patient Augmentin for possible worsening otitis externa/otitis media that could be causing her dizziness/feeling off balance. Inject the Eben nurse practitioner will discussed this case tomorrow with Oncology to evaluate if the patient needs a nuclear bone scan. Patient and at bedside understand agree this plan. Time: 16:12 [facility] - Dizziness Medical Records Attestation: I reviewed the patient's medical records. Lab Data Attestation: I reviewed the patient's lab results. Result diagrams: 06/21/22 09:58 06/21/22 09:58 Labs: Lab Results 06/21/22 06/21/22 06/21/22 Range/Units 09:58 09:58 09:58 WBC 7.2 (4.8-10.8) X10*3/uL RBC 4.89 (4.20-5.50) X10*6/uL Hgb 14.8 (12.0-16.0) g/dl Hct 46.3 (37.0-47.0) % MCV 94.7 (80.0-98.0) fL MCH 30.3 (27.0-33.0) pg MCHC 32.0 (31.0-35.0) g/dl RDW 15.5 (11.0-16.0) % Plt Count 284 (160-400) X10*3/uL MPV 10.1 (9.4-12.3) fL Immature Gran % (Auto) 0.3 (0.0-0.4) % Neut % (Auto) 63.2 (45-73) % Lymph % (Auto) 27.1 (20-40) % [place] % (Auto) 6.8 (2-11) % Eos % (Auto) 1.9 (0-4) % Baso % (Auto) 0.7 (0-2) % Lymph # (Auto) 2.0 (1.2-4.9) X10*3/uL [place] # (Auto) 0.5 (0.1-1.2) X10*3/uL Eos # (Auto) 0.1 (0.0-0.4) X10*3/uL Baso # (Auto) 0.1 (0.0-0.2) X10*3/uL Abs Immat Gran (auto) 0.02 (0.00-0.03) X10*3/uL Absolute Neuts (auto) 4.6 (2.0-8.3) x10*3/uL Absolute Nucleated RBC 0.000 (0.0-0.012) X10*3/uL Nucleated RBC % (auto) 0.0 (0.0-0.2) /100WBC PT (10.0-13.1) SEC INR (0.9-1.1) Sodium 144 (135-145) mmol/L Potassium 4.1 (3.3-5.1) mmol/L Chloride 107 (96-108) mmol/L Carbon Dioxide 26 (22-29) mmol/L Anion Gap 15 (12-20) BUN 19 H (9-16) mg/dL Creatinine 0.89 (0.5-1.4) mg/dL Estim Creat Clear Calc 47.5 Estimated GFR > 60 Random Glucose 98 (60-115) mg/dL Calcium 9.7 (8.4-10.2) mg/dL Magnesium 1.7 (1.6-2.6) mg/dL Total Bilirubin 0.5 (0.0-1.0) mg/dL Direct Bilirubin 0.2 (0.0-0.5) mg/dL AST 30 (5-31) U/L ALT 28 (0-31) U/L Alkaline Phosphatase 93 (39-117) U/L Troponin I High Sens 28.7 H (<3.5-17.0) ng/L B-Natriuretic Peptide 64 (<100) pg/mL Total Protein 6.7 (6.5-8.0) g/dL Albumin 4.1 (3.5-5.0) g/dL Urine Color Urine Appearance Urine pH (5.0-8.0) Ur Specific [place] (1.005-1.025) Urine Protein (Neg-Trace) mg/dL Urine Glucose (UA) (Negative) mg/dL Urine Ketones (Negative) mg/dL Urine Blood (Negative) Urine Nitrite (Negative) Ur Leukocyte Esterase (Negative) Urine RBC (0-2) /HPF Urine WBC (0-5) /HPF Ur Squamous Epith Cells (0-2) /HPF Urine Bacteria (None Seen) Hyaline Casts (0-2) /LPF 06/21/22 06/21/22 06/21/22 Range/Units 13:50 13:51 14:31 WBC (4.8-10.8) X10*3/uL RBC (4.20-5.50) X10*6/uL Hgb (12.0-16.0) g/dl Hct (37.0-47.0) % MCV (80.0-98.0) fL MCH (27.0-33.0) pg MCHC (31.0-35.0) g/dl RDW (11.0-16.0) % Plt Count (160-400) X10*3/uL MPV (9.4-12.3) fL Immature Gran % (Auto) (0.0-0.4) % Neut % (Auto) (45-73) % Lymph % (Auto) (20-40) % [place] % (Auto) (2-11) % Eos % (Auto) (0-4) % Baso % (Auto) (0-2) % Lymph # (Auto) (1.2-4.9) X10*3/uL [place] # (Auto) (0.1-1.2) X10*3/uL Eos # (Auto) (0.0-0.4) X10*3/uL Baso # (Auto) (0.0-0.2) X10*3/uL Abs Immat Gran (auto) (0.00-0.03) X10*3/uL Absolute Neuts (auto) (2.0-8.3) x10*3/uL Absolute Nucleated RBC (0.0-0.012) X10*3/uL Nucleated RBC % (auto) (0.0-0.2) /100WBC PT 11.1 (10.0-13.1) SEC INR 1.0 (0.9-1.1) Sodium (135-145) mmol/L Potassium (3.3-5.1) mmol/L Chloride (96-108) mmol/L Carbon Dioxide (22-29) mmol/L Anion Gap (12-20) BUN (9-16) mg/dL Creatinine (0.5-1.4) mg/dL Estim Creat Clear Calc Estimated GFR Random Glucose (60-115) mg/dL Calcium (8.4-10.2) mg/dL Magnesium (1.6-2.6) mg/dL Total Bilirubin (0.0-1.0) mg/dL Direct Bilirubin (0.0-0.5) mg/dL AST (5-31) U/L ALT (0-31) U/L Alkaline Phosphatase (39-117) U/L Troponin I High Sens 28.9 H (<3.5-17.0) ng/L B-Natriuretic Peptide (<100) pg/mL Total Protein (6.5-8.0) g/dL Albumin (3.5-5.0) g/dL Urine Color Yellow Urine Appearance Clear Urine pH 7.5 (5.0-8.0) Ur Specific [place] 1.015 (1.005-1.025) Urine Protein Trace (Neg-Trace) mg/dL Urine Glucose (UA) Negative (Negative) mg/dL Urine Ketones Negative (Negative) mg/dL Urine Blood Negative (Negative) Urine Nitrite Negative (Negative) Ur Leukocyte Esterase Small (1+) H (Negative) Urine RBC 0-2 (0-2) /HPF Urine WBC 11-20 H (0-5) /HPF Ur Squamous Epith Cells 3-5 (0-2) /HPF Urine Bacteria Trace (None Seen) Hyaline Casts 0-2 (0-2) /LPF Imaging Data Chest x-ray: Attestation: I personally reviewed and interpreted this imaging study as follows: Radiologist's impression: FINDINGS: Both lungs are fairly well expanded and clear of acute process. There are postsurgical changes along the right upper lobe paramediastinum. Heart size and pulmonary vascularity is normal. There is no pleural effusion. No gross bony abnormality. IMPRESSION: Postsurgical changes right upper lobe adjacent to the mediastinum. Mild loss of right lung volume. No acute cardiopulmonary process seen. CT scan - head: Attestation: I personally reviewed and interpreted this imaging study as follows: Radiologist's impression: FINDINGS: Brain: There is no acute intra-axial, extra-axial bleed or midline shift. There is a subtle hypodensity in the midbrain on axial image 18/2, new since the last exam 2012. There is no acute infarction in evolution. The ni to white matter differentiation maintained normal. No edema seen. The lateral ventricles are symmetrical in size and configuration without enlargement. Bone windows reveal 1.2 cm intramedullary right frontal bone no other calvarial lesions seen. Bilateral paranasal sinuses and mastoid air cells are well-aerated. IMPRESSION: No acute intracranial bleed or infarction. ? Subtle hypodensity central midbrain question artifact versus lesion. ? There is a 1.2 cm right frontal bone? lesion, new since CT 02/01/2013. ? Recommend MRI correlation for both the lesions. MRI brain without contrast: Attestation: I personally reviewed and interpreted this imaging study as follows: Radiologist's impression: FINDINGS: No diffusion abnormalities are identified to suggest an acute infarct. Generalized parenchymal volume loss noted without evidence of hydrocephalus. No mass effect or midline shift is seen. Nztp-io-[id number] scattered foci of T2 hyperintense signal change noted in the cerebral white matter and brainstem which may be due to chronic microangiopathy. No extra-axial fluid collections are seen. The cerebellum is normal. The gradient refocused acquisition demonstrates no pathologic magnetic susceptibility artifact to indicate underlying acute or chronic blood products. There is focal encephalomalacia in the high right parietal lobe in the postcentral gyrus, presumably due to a chronic infarct. The craniovertebral junction and midline structures are normal. The major intracranial flow voids at the level of the [place] are preserved. The dural venous sinus flow voids are maintained. There is a mild amount of fluid in the dependent mastoid air cells bilaterally. The paranasal sinuses are fairly well aerated. 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 A heterogeneous T2 hyperintense and T1 low signal lesion is visible in the right parietal calvarium at the high convexity with a slightly exophytic component corresponding to the lucent lesion seen on the CT examination containing an internal trabecular pattern, measuring approximately 1.1 cm in size. As mentioned, this finding was not visible on prior imaging from 02/01/2013. MR/MR head/brain wo con IMPRESSION: No acute intracranial process. Chronic high right parietal lobe infarct. Fonw-ad-zelyaqqj chronic white matter microangiopathy. ? Indeterminate 1.1 cm high right parietal calvarial lesion, new when compared to imaging from 01/2013. Given that this osseous lesion is a new finding, a nuclear bone scan would be recommended in followup for further evaluation. ? Imaging findings reported to RENEE Alexander at 3:35 PM on 06/21/2022. ECG Data Attestation: I personally reviewed and interpreted this ECG as follows: ECG interpretation date: 06/21/22 ECG interpretation time: 10:39 Interpretation: Sinus bradycardia with first-degree AV block with ventricular rate of 59 with premature atrial complexes no acute ischemic change are noted. Similar compared to prior EKG on 12/05/2017 Critical Care Time Critical Care Time Critical Care Time: Yes Total Critical Care Time: 60 Attestation: I personally attest to this time spent taking care of the patient Discharge Plan Discharge Clinical Impression: Dizziness, Otitis externa, UTI (urinary tract infection), Lesion of right parietal lobe of brain Patient Disposition: Admitted As Inpatient
[2022-06-21 14:07] LABS: Prothrombin Time 11.1 SEC (10.0-13.1)
[2022-06-21 14:14] LABS: Troponin-I High Sensitivity 28.9 ng/L (<3.5-17.0)
[2022-06-21 14:41] LABS: Appearance Urine Clear; Color Urine Yellow; Glucose Urine UA Negative (Negative); Leukocyte Esterase Urine Small (1+) (Negative); Nitrite Urine Negative (Negative); PH 7.5 (5.0-8.0); Specific Gravity - Urine 1.015 (1.005-1.025); Urine Blood Negative (Negative); Urine Ketones Negative (Negative); Urine Protein Trace mg/dL (Neg-Trace)
[2022-06-21 14:46] LABS: Bacteria Urine Trace (None Seen); Hyaline Casts Urine 0-2 /LPF (0-2); RBC Urine 0-2 /HPF (0-2); UACC Culture Trigger YES
--- NOTE | 2022-06-21 16:23 | PHA.MEDREC ---
Pharmacy Consult ? Medication Reconciliation Pharmacy has completed the medication reconciliation. Patient was an excellent historian. Patient mentioned she was due for her praulent this morning but had skipped it due to her visit. She also claims she very rarely takes her proair, it is strictly PRN.
--- NOTE | 2022-06-21 16:32 | PM.IMHP ---
History of Present Illness Date of Service: 06/21/22 Chief Complaint: Dizziness 86 year old women presenting with dizziness. She has had dizziness, feeling like she is going to pass out, for about 3 days. Started on Tuesday as she was getting up to use the bathroom. She felt nausea and vomiting. After that it would come and go throughout the day. She went to their campsite on Tuesday and ended up heading home due to the continued dizziness. This morning she had more dizziness and decided to come to the ED for further evaluation. Of note she was being treated for acute otitis media with cipro otic drops. She denied any chest pain, shortness breath, visual changes, headache, loss of consciousness, heart palpitations, fever, chills, bleeding, dysuria. In the ER head CT was obtained which showed new lesion therefore MRI was then obtained which showed 1.1 cm high right parietal calvarial lesion new compared to imaging from 2013. Chest x-ray was negative for consolidation or effusion, all labs within acceptable limits, blood pressure was elevated with the highest reading of 197/77. Sinus bradycardia with first-degree AV block noted on EKG without any ischemic changes. She was given a dose of Augmentin and meclizine in the ER. She will be placed on observation for acute dizziness. Review of Systems Review of Systems: Denies any recent fever chills or decrease in appetite respiratory denies any shortness of breath coverage production cardiovascular denies chest pain gastrointestinal denies any dysphagia abdominal pain nausea vomiting or diarrhea genitourinary denies any dysuria frequency or hematuria musculoskeletal denies any joint pain or swelling neuropsych See hPI all other systems reviewed are negative [facility] Medical History Asthma Atherosclerotic cardiovascular disease Carotid stenosis, bilateral Cerebrovascular accident, embolic FH: total knee replacement Hypertension Obesity Other and unspecified hyperlipidemia Pulmonary embolism Family History Father Cancer Mother Breast cancer Cerebral aneurysm Surgical History History of appendectomy History of cholecystectomy History of hysterectomy History of lobectomy of lung History of total right hip replacement Social History Housing: House Alcohol intake: never Patient Tobacco Use Status: Former Tobacco user Quit Date: 10+ years ago Tobacco use type: Cigarette Years Smoked: 50 years e-Cigarette/Vaping Use: Never Used Advance Directives: Yes Advance Directives Information Provided: No Advance Directives on File: No service: No Current occupational status: retired Cognitive needs: No Hearing needs: No Vision needs: Yes Meds Allergies Allergy/AdvReac Type Severity Reaction Status Date / Time [id number]-[id number] Reductase Allergy Mild MENTAL Verified 05/25/22 09:55 Inhibitor CHANGES [[id number] REDUCTASE INHIBITOR] rosuvastatin [Crestor] Allergy Unknown weakness,muscle Verified 05/25/22 09:55 aches Active Medications: Current Medications Acetaminophen (Acetaminophen 325 Mg Tablet) 650 mg PO Q6H PRN PRN Reason: Pain, Mild (Pain Scale 1-3) Albuterol Sulfate (Albuterol Sulfate 90 Mcg 8 Gm Inhaler) 2 puff INHALE DAILY PRN PRN Reason: bronchospasm Amoxicillin/Clavulanate Potassium (Amoxicillin/Potassium Clav 875 Mg Tablet) 875 mg PO Q12H [facility] Stop: 07/01/22 16:29 Ascorbic Acid (Ascorbic Acid 500 Mg Tablet) 500 mg PO DAILY [facility] Aspirin (Aspirin Enteric Coated 81 Mg Tablet.Dr) 81 mg PO DAILY [facility] Fluticasone/Vilanterol (Fluticasone/Vilanterol 200/25 Blst.W.Dev) 1 puff INHALE DAILY [facility] Heparin Sodium (Porcine) (Heparin Sodium,Porcine 5,000 Unit/Ml Vial) 5,000 unit SUBCUT Q12H [facility] Non-Formulary Medication (Alirocumab [Praluent Pen]) 75 mg SUBCUT Q2W [facility] Ondansetron HCl (Ondansetron Hcl 4 Mg/2 Ml Vial) 4 mg IVPUSH Q8H PRN PRN Reason: Nausea and Vomiting Pharmacy Consult (Consult Rx Perform Med Rec) 1 each MISCELLANE ONCE PRN PRN Reason: Consult order Sodium Chloride (0.9 % Sodium Chloride Flush 3 Ml Syringe) 3 ml IVFLUSH QSHIFT [facility] Vitamin D (Cholecalciferol (Vitamin D3) 25 Mcg Tablet) 25 mcg PO DAILY [facility] Home Medications Medication Instructions Recorded Confirmed Last Taken Type aspirin 81 mg tablet,delayed 81 mg PO DAILY 09/09/20 06/21/22 06/20/22 History release ascorbate calcium (vitamin C) 500 500 mg PO DAILY 09/16/20 06/21/22 06/20/22 History mg tablet cholecalciferol (vitamin D3) 25 25 mcg PO DAILY 09/16/20 06/21/22 06/20/22 History mcg (1,000 unit) capsule ciprofloxacin 0.3 %-dexamethasone 1 drp otic (ears) BID 05/25/22 06/21/22 06/20/22 History 0.1 % ear drops,suspension Physical Exam Vital Signs and Narrative: Vital Signs: Last Vital Signs Temp 98 F 06/21/22 08:31 Pulse 61 06/21/22 15:45 Resp 18 06/21/22 15:45 BP 186/86 H 06/21/22 15:45 Pulse Ox 98 06/21/22 15:45 O2 Del Method 06/21/22 15:45 BMI result Body Mass Index 36.6 Appearing in no acute distress head is normocephalic atraumatic eyes pupils are PERRLA sclera is anicteric mouth throat mucous membranes are intact and moist Tympanic membrane not visualized due to swelling neck is supple no lymphadenopathy, no JVD noted lung sounds are clear to auscultation heart regular rate rhythm, clear S1, S2 positive bowel sounds, abdomen is soft, nontender neuro patient is alert x3, no focal deficits Results Labs CBC and Chem 7: 06/22/22 04:08 06/22/22 04:08 Labs: Laboratory Results - last 24 hr 06/21/22 06/21/22 06/21/22 09:58 09:58 09:58 MCV 94.7 MCH 30.3 MCHC 32.0 RDW 15.5 Plt Count 284 MPV 10.1 Immature Gran % (Auto) 0.3 Neut % (Auto) 63.2 Lymph % (Auto) 27.1 [place] % (Auto) 6.8 Eos % (Auto) 1.9 Baso % (Auto) 0.7 Lymph # (Auto) 2.0 [place] # (Auto) 0.5 Eos # (Auto) 0.1 Baso # (Auto) 0.1 Abs Immat Gran (auto) 0.02 Absolute Neuts (auto) 4.6 Absolute Nucleated RBC 0.000 Nucleated RBC % (auto) 0.0 PT INR Anion Gap 15 Estim Creat Clear Calc 47.5 Estimated GFR > 60 Random Glucose 98 Calcium 9.7 Magnesium 1.7 Total Bilirubin 0.5 Direct Bilirubin 0.2 AST 30 ALT 28 Alkaline Phosphatase 93 B-Natriuretic Peptide 64 Total Protein 6.7 Albumin 4.1 Urine Color Urine Appearance Urine pH Ur Specific [place] Urine Protein Urine Glucose (UA) Urine Ketones Urine Blood Urine Nitrite Ur Leukocyte Esterase Urine RBC Urine WBC Ur Squamous Epith Cells Urine Bacteria Hyaline Casts 06/21/22 06/21/22 13:51 14:31 MCV MCH MCHC RDW Plt Count MPV Immature Gran % (Auto) Neut % (Auto) Lymph % (Auto) [place] % (Auto) Eos % (Auto) Baso % (Auto) Lymph # (Auto) [place] # (Auto) Eos # (Auto) Baso # (Auto) Abs Immat Gran (auto) Absolute Neuts (auto) Absolute Nucleated RBC Nucleated RBC % (auto) PT 11.1 INR 1.0 Anion Gap Estim Creat Clear Calc Estimated GFR Random Glucose Calcium Magnesium Total Bilirubin Direct Bilirubin AST ALT Alkaline Phosphatase B-Natriuretic Peptide Total Protein Albumin Urine Color Yellow Urine Appearance Clear Urine pH 7.5 Ur Specific [place] 1.015 Urine Protein Trace Urine Glucose (UA) Negative Urine Ketones Negative Urine Blood Negative Urine Nitrite Negative Ur Leukocyte Esterase Small (1+) H Urine RBC 0-2 Urine WBC 11-20 H Ur Squamous Epith Cells 3-5 Urine Bacteria Trace Hyaline Casts 0-2 Imaging Radiologist's Impressions: Impressions Head CT 06/21/22 11:00 IMPRESSION: No acute intracranial bleed or infarction. Subtle hypodensity central midbrain question artifact versus lesion. There is a 1.2 cm right frontal bone lesion, new since CT 02/01/2013. Recommend MRI correlation for both the lesions. Chest X-Ray 06/21/22 11:15 IMPRESSION: No acute intracranial bleed or infarction. Subtle hypodensity central midbrain question artifact versus lesion. There is a 1.2 cm right frontal bone lesion, new since CT 02/01/2013. Recommend MRI correlation for both the lesions. Brain MRI 06/21/22 15:10 IMPRESSION: No acute intracranial process. Chronic high right parietal lobe infarct. [id number] chronic white matter microangiopathy. Indeterminate 1.1 cm high right parietal calvarial lesion, new when compared to imaging from 01/2013. Given that this osseous lesion is a new finding, a nuclear bone scan would be recommended in followup for further evaluation. Imaging findings reported to RENEE Alexander at 3:35 PM on 06/21/2022. Assessment and Plan (1) Otitis media: Status: Acute (2) Dizziness: Status: Acute Plan 86 year old women placed on observation for dizziness Dizziness likely secondary to otitis media No signs of infection Orthostatic negative Had been treated on an outpatient basis with ear drops Started on Augmentin 875 mg twice daily for total 10 days for severe infection MRI negative for acute infarction, showed old stroke and new 1.1 cm high right parietal calvarial lesion new compared to imaging from 2013 discussed this with Oncology with recommendation for outpatient bone scan As needed meclizine Hypertension Multiple elevated blood pressure readings Hydralazine added Monitor blood pressure closely Asthma Continue albuterol and home inhalers as needed History of CVA Continue aspirin Obesity. BMI 36.6 Discussed the importance of weight management as this may be contributing to worsening of other comorbidities sign DVT prophylaxis with heparin Attending Dr. Girard Full code Observation Quality Stroke Does the patient have a stroke diagnosis?: No VTE Prior VTE?: No VTE Risk Level:: Medical - moderate - high VTE Device Contraindication: Treatment Not Indicated VTE Drug Contraindication: N/A - Med Ordered
[2022-06-21] MEDS: Amoxicillin/Potassium Clav 875 MG TABLET PO (16:48)
[2022-06-21] MEDS: Meclizine HCl 25 MG TABLET 50 MG PO (16:48)
[2022-06-21] MEDS: Heparin Sodium,Porcine 5,000 UNIT/ML VIAL 5000 UNIT SUBCUT (16:48)
[2022-06-21 18:26] LABS: Lactic Acid 2.9 mmol/L (0.5-2.0)
[2022-06-21 20:01] LABS: Reflex Lactate? Lactic Acid Added
[2022-06-21 21:08] LABS: ~Lactic Acid-LAB USE ONLY 1.6 mmol/L (0.5-2.0)
[2022-06-21] MEDS: hydrALAZINE HCl 25 MG TABLET PO (23:25)
[2022-06-22] VITALS: BP 139/48; PULSE 71; RESP 20; O2SAT 94
[2022-06-22 04:23] LABS: Basophils Percent Auto 0.6 % (0-2); Eosinophils Absolute Auto 0.2 X10*3/uL (0.0-0.4); Eosinophils Percent Auto 3.1 % (0-4); Hematocrit 42.4 % (37.0-47.0); Hemoglobin 13.7 g/dl (12.0-16.0); Imm Gran Abs Auto 0.01 X10*3/uL (0.00-0.03); Imm Gran Pct Auto 0.1 % (0.0-0.4); Lymphocytes Absolute Auto 2.1 X10*3/uL (1.2-4.9); MANUAL DIFF FLAG NO; Mean Corpuscular HGB Conc 32.3 g/dl (31.0-35.0); Mean Corpuscular Hemoglobin 30.6 pg (27.0-33.0); Mean Corpuscular Volume 94.6 fL (80.0-98.0); Mean Platelet Volume 10.5 fL (9.4-12.3); Monocytes Absolute Auto 0.7 X10*3/uL (0.1-1.2); Monocytes Percent Auto 10.5 % (2-11); Neutrophils Absolute Auto 3.9 x10*3/uL (2.0-8.3); Neutrophils Percent Auto 55.7 % (45-73); Platelet Count 257 X10*3/uL (160-400); Red Blood Count 4.48 X10*6/uL (4.20-5.50); Red Cell Distribution Width 15.3 % (11.0-16.0)
[2022-06-22 04:38] LABS: COVID-19 Test Negative (Negative)
[2022-06-22 04:46] LABS: Anion Gap 16 (12-20); Blood Urea Nitrogen 22 mg/dL (9-16); Calcium 9.2 mg/dL (8.4-10.2); Carbon Dioxide 22 mmol/L (22-29); Chloride 107 mmol/L (96-108); Estimated Glomerular Filt Rate > 60; Glucose Random 101 mg/dL (60-115); Potassium 3.9 mmol/L (3.3-5.1); Sodium 141 mmol/L (135-145)
[2022-06-22] MEDS: Amoxicillin/Potassium Clav 875 MG TABLET PO (05:34)
[2022-06-22] MEDS: Heparin Sodium,Porcine 5,000 UNIT/ML VIAL 5000 UNIT SUBCUT (05:34)
[2022-06-22 05:53] VITALS: BP 171/59; PULSE 68; RESP 28; O2SAT 93
[2022-06-22] MEDS: hydrALAZINE HCl 25 MG TABLET PO (07:29)
[2022-06-22] MEDS: Ascorbic Acid 500 MG TABLET PO (07:29)
[2022-06-22] MEDS: Cholecalciferol (Vitamin D3) 25 MCG TABLET PO (07:29)
[2022-06-22] MEDS: 0.9 % Sodium Chloride Flush 3 ML SYRINGE IVFLUSH (07:31)
[2022-06-22 09:15] VITALS: BP 130/52; PULSE 69; RESP 19; O2SAT 98
[2022-06-22] MEDS: Aspirin Enteric Coated 81 MG TABLET.DR PO (09:16)
--- NOTE | 2022-06-22 11:12 | MHC.CM.PN ---
met with pt in ed ,pt lives with and grandsons pt is vax x 3 has lucinda ride home and no previous nservcies ..
--- NOTE | 2022-06-22 11:29 | MHC.CM.PN ---
pt dcd home no skilled servceis ordered by
--- NOTE | 2022-06-22 12:59 | P.DS_ITS ---
DS: Providers Provider Date of Service: 06/22/22 Date of admission: 06/21/22 16:04 Primary care physician: Berhane Chung MD Attending physician on discharge: Christian Underwood Discharging clinician: Helen Treadwell DS: Diagnosis Discharge Diagnosis (1) Otitis media: Status: Acute (2) Dizziness: Status: Acute DS: Summary Hospital Course Hospital Course: 86 year old women presenting with dizziness. She has had dizziness, feeling like she is going to pass out, for about 3 days. Started on Tuesday as she was getting up to use the bathroom. She felt nausea and vomiting. After that it would come and go throughout the day. She went to their campsite on Tuesday and ended up heading home due to the continued dizziness. This morning she had more dizziness and decided to come to the ED for further evaluation. Of note she was being treated for acute otitis media with cipro otic drops. She? denied any chest pain, shortness breath, visual changes, headache, loss of consciousness, heart palpitations, fever, chills, bleeding, dysuria.? In the ER head CT was obtained which showed new lesion therefore MRI was then obtained which showed 1.1 cm high right parietal calvarial lesion new compared to imaging from 2013.? Chest x-ray was negative for consolidation or effusion, all labs within acceptable limits, blood pressure was elevated with the highest reading of 197/77.? Sinus bradycardia with first-degree AV block noted on EKG without any ischemic changes.? She was given a dose of Augmentin and meclizine in the ER.? She will be placed on observation for acute dizziness. Dizziness secondary to otitis media No signs of infection Orthostatic negative Had been treated on an outpatient basis with ear drops Started on Augmentin 875 mg twice daily for total 10 days for severe infection MRI negative for acute infarction, showed old stroke and new 1.1 cm high right parietal calvarial lesion new compared to imaging from 2013 discussed this with Oncology with recommendation for outpatient bone scan, she can follow-up with the oncology office As needed meclizine Seen and examined by Physical therapy with recommendation for no short-term rehab. Recommended to ambulate, safety precautions when feeling off balance. Hypertension Multiple elevated blood pressure readings Hydralazine added blood pressure more stable at this point, will stop the hydralazine Asthma Continue albuterol and home inhalers as needed History of CVA Continue aspirin Obesity.? BMI 36.6 Discussed the importance of weight management as this may be contributing to worsening of other comorbidities sign Time Spent with Patient Time attestation: Total time spent providing and/or coordinating discharge services: Discharge coordination time: Greater than 30 minutes Quality: Safe Use of Opioids Does Pt have an Active Cancer Diagnosis on the Problem List?: No Quality: Stroke Does the patient have a stroke diagnosis?: No Physical Exam Vital Signs: Vital Signs: Last Vital Signs Temp 97.9 F 06/21/22 23:24 Pulse 69 06/22/22 09:15 Resp 19 06/22/22 09:15 BP 130/52 L 06/22/22 09:15 Pulse Ox 98 06/22/22 09:15 O2 Del Method 06/22/22 09:15 BMI result Body Mass Index 36.6 Appearing in no acute distress head is normocephalic atraumatic eyes pupils are PERRLA sclera is anicteric mouth throat mucous membranes are intact and moist neck is supple no lymphadenopathy, no JVD noted lung sounds are clear to auscultation heart regular rate rhythm, clear S1, S2 positive bowel sounds, abdomen is soft, nontender neuro patient is alert x3, no focal deficits DS: Data Data Completed and Pending Labs on day of discharge: Laboratory Results - last 24 hr 06/21/22 06/21/22 06/21/22 13:50 13:51 14:31 WBC RBC Hgb Hct MCV MCH MCHC RDW Plt Count MPV Immature Gran % (Auto) Neut % (Auto) Lymph % (Auto) [place] % (Auto) Eos % (Auto) Baso % (Auto) Lymph # (Auto) [place] # (Auto) Eos # (Auto) Baso # (Auto) Abs Immat Gran (auto) Absolute Neuts (auto) Absolute Nucleated RBC Nucleated RBC % (auto) PT 11.1 INR 1.0 Sodium Potassium Chloride Carbon Dioxide Anion Gap BUN Creatinine Estim Creat Clear Calc Estimated GFR Random Glucose Lactic Acid Lactic Acid F/U @ 2Hr Calcium Troponin I High Sens 28.9 H Urine Color Yellow Urine Appearance Clear Urine pH 7.5 Ur Specific [place] 1.015 Urine Protein Trace Urine Glucose (UA) Negative Urine Ketones Negative Urine Blood Negative Urine Nitrite Negative Ur Leukocyte Esterase Small (1+) H Urine RBC 0-2 Urine WBC 11-20 H Ur Squamous Epith Cells 3-5 Urine Bacteria Trace Hyaline Casts 0-2 COVID-19 (YULISSA) COVID-19 Clin Com 06/21/22 06/21/22 06/22/22 17:57 20:49 04:08 WBC 7.0 RBC 4.48 Hgb 13.7 Hct 42.4 MCV 94.6 MCH 30.6 MCHC 32.3 RDW 15.3 Plt Count 257 MPV 10.5 Immature Gran % (Auto) 0.1 Neut % (Auto) 55.7 Lymph % (Auto) 30.0 [place] % (Auto) 10.5 Eos % (Auto) 3.1 Baso % (Auto) 0.6 Lymph # (Auto) 2.1 [place] # (Auto) 0.7 Eos # (Auto) 0.2 Baso # (Auto) 0.0 Abs Immat Gran (auto) 0.01 Absolute Neuts (auto) 3.9 Absolute Nucleated RBC 0.000 Nucleated RBC % (auto) 0.0 PT INR Sodium Potassium Chloride Carbon Dioxide Anion Gap BUN Creatinine Estim Creat Clear Calc Estimated GFR Random Glucose Lactic Acid 2.9 H* Lactic Acid F/U @ 2Hr 1.6 Calcium Troponin I High Sens Urine Color Urine Appearance Urine pH Ur Specific [place] Urine Protein Urine Glucose (UA) Urine Ketones Urine Blood Urine Nitrite Ur Leukocyte Esterase Urine RBC Urine WBC Ur Squamous Epith Cells Urine Bacteria Hyaline Casts COVID-19 ([facility]ULISSA) COVID-19 Clin Com 06/22/22 06/22/22 04:08 04:18 WBC RBC Hgb Hct MCV MCH MCHC RDW Plt Count MPV Immature Gran % (Auto) Neut % (Auto) Lymph % (Auto) [place] % (Auto) Eos % (Auto) Baso % (Auto) Lymph # (Auto) [place] # (Auto) Eos # (Auto) Baso # (Auto) Abs Immat Gran (auto) Absolute Neuts (auto) Absolute Nucleated RBC Nucleated RBC % (auto) PT INR Sodium 141 Potassium 3.9 Chloride 107 Carbon Dioxide 22 Anion Gap 16 BUN 22 H Creatinine 0.88 Estim Creat Clear Calc 48.0 Estimated GFR > 60 Random Glucose 101 Lactic Acid Lactic Acid F/U @ 2Hr Calcium 9.2 Troponin I High Sens Urine Color Urine Appearance Urine pH Ur Specific [place] Urine Protein Urine Glucose (UA) Urine Ketones Urine Blood Urine Nitrite Ur Leukocyte Esterase Urine RBC Urine WBC Ur Squamous Epith Cells Urine Bacteria Hyaline Casts COVID-19 ([facility]ULISSA) Negative COVID-19 Clin Com See Note Preliminary micro results at discharge 06/21/22 14:47 Urine Culture - Preliminary Urine clean catch - Clean Catch Midstream Culture too young to evaluate. Discharge Plan Discharge Anticipated Discharge Date/Time: 06/22/22 12:48 Patient Disposition: Home, Self-Care Discharge Diagnosis: Dizziness secondary to Otitis media Referrals: Haritha Romero MD [Physician] - 1 Week ( 1.1 cm right parietal calvarial lesion on MRI 06/21/2022. May need bone scan) Berhane Chung MD [Primary Care Provider] - 1 Week Discharge Medications: New meclizine 12.5 mg Tablet 12.5 mg PO Q6H PRN (Reason: dizziness) Qty: 12 0RF amoxicillin-pot clavulanate 875-125 mg Tablet 1 tab PO Q12H Qty: 18 0RF Continued albuterol sulfate 90 mcg/actuation HFA aerosol inhaler 2 puff inhalation DAILY PRN (Reason: bronchospasm) 30 Days Qty: 18 0RF Breo Ellipta 200-25 mcg/dose blister with device 1 inh PO DAILY 90 Days Qty: 180 3RF Praluent Pen 75 mg/mL pen injector 75 mg subcut Q2W 90 Days Qty: 7 3RF cholecalciferol (vitamin D3) 25 mcg (1,000 unit) capsule 25 mcg PO DAILY ascorbate calcium (vitamin C) 500 mg tablet 500 mg PO DAILY ciprofloxacin-dexamethasone 0.3-0.1 % drops,suspension 1 drp otic (ears) BID aspirin 81 mg tablet,delayed release (DR/EC) 81 mg PO DAILY Discharge Orders: Discharge Order (Routine); Ordered 06/22/22 Ordered By: Helen Treadwell Diet: Advance to usual diet Activity on Discharge: As tolerated Stand Alone Forms: Patient Portal Discharge page Care Plan Goals: Complete resolution of symptoms Health Concerns: Dizziness secondary to otitis media Plan of Treatment: Follow up with the primary care provider as needed regarding treatment for otitis media Follow-up with oncologist for new findings on MRI, you may require further testing and diagnostic imaging You have been prescribed meclizine for dizziness, you may take as needed You have been prescribed Augmentin for total of 10 days due to severe otitis media Assessment: see discharge summary
[2022-06-22 15:09] VITALS: BP 106/63; PULSE 74
== END 2022-06-22 15:29 | disposition home or self-care (01) ==
LOC: HO.ED 16:15 → HO.EDOVER 16:30
PROVIDERS: Physician Assistant Medical; Admitting Provider Nurse Practitioner Acute Care; Emergency Provider Emergency Medicine; PCP Internal Medicine; Visit Provider Nurse Practitioner Acute Care
DX: R42 Dizziness and giddiness (principal); H66.93 Otitis media, unspecified, bilateral; N39.0 Urinary tract infection, site not specified; G93.9 Disorder of brain, unspecified; R06.02 Shortness of breath; R11.10 Vomiting, unspecified; I10 Essential (primary) hypertension; E78.5 Hyperlipidemia, unspecified; J45.909 Unspecified asthma, uncomplicated; M77.52 Other enthesopathy of left foot and ankle; M47.812 Spondylosis without myelopathy or radiculopathy, cervical region; I65.23 Occlusion and stenosis of bilateral carotid arteries; C34.11 Malignant neoplasm of upper lobe, right bronchus or lung; C34.91 Malignant neoplasm of unspecified part of right bronchus or lung; E66.9 Obesity, unspecified; Z68.36 Body mass index [BMI] 36.0-36.9, adult; Z87.440 Personal history of urinary (tract) infections; Z86.711 Personal history of pulmonary embolism; Z87.891 Personal history of nicotine dependence; Z86.73 Personal history of transient ischemic attack (TIA), and cerebral infarction without residual deficits; Z20.822 Contact with and (suspected) exposure to COVID-19
CPT/HCPCS: 36415; 70450; 70551; 71046; 80048; 80076; 81001; 83605; 83735; 83880; 84484; 85025; 85610; 87040; 87086; 87635; 93005; 96372; 97162; 99219; 99285

== ENCOUNTER → 2022-07-26 10:42 | Outpatient (REF) | payer MEDICARE, SELFPAY ==
--- NOTE | ~2022-07-26 | NM_ITS ---
EXAMINATION: NM BONE SCAN OF THE WHOLE BODY CLINICAL INFORMATION: Variable bone lesion. COMPARISON: No previous bone scan is available for comparison. Radiographs of the chest dated 06/21/2022 and the left foot dated 04/16/2022 are available for comparison. MRI of the brain dated 06/21/2022 is also available for comparison. TECHNIQUE: Multiple gamma scintillation camera images of the whole body were performed 2.75 hours following the intravenous administration of 32 mCi Tc-99m MDP. FINDINGS: In the head, there is a small focus of mildly increased activity in the right parietal bone just inferior to the vertex. This corresponds to the lesion visualized at this site on the 06/21/2022 MRI of the head. In the thoracic cage and upper extremities, there is mildly increased activity in both shoulders which is fairly diffuse, and slightly more prominent in the acromioclavicular joints bilaterally. Moderately increased activity is present in the sternoclavicular joints bilaterally and this is more intense on the left. There is a focus of mildly increased activity in the anterolateral aspect of the left sixth rib and a faint abnormality is present in the posterolateral aspect of the right rib cage probably in the right eighth rib. Mild periarticular foci of increased activity are present in both hands and wrists, most prominently in the radial side of both hands and probably at the first carpal metacarpal joints. In the spine, there is minimally increased activity in the left side of the lower lumbar spine likely in the posterior elements at L4-L5. In the pelvis, no significant abnormalities are present. In the lower extremities, well-healed bilateral total knee and right total hip prostheses are noted. There is no abnormal activity adjacent to any of the prosthesis. There is mildly increased activity in the intertrochanteric region of the left femur. A very mild diffuse increase in activity is present in the left ankle and proximal left foot. No other definite bony abnormalities are noted. The urinary bladder and faint visualization of both kidneys are noted. The chest radiographs dated 06/21/2022 do not show corresponding abnormalities in the ribs to the rib abnormalities described above on this bone scan. NM/NM bone scan whole body IMPRESSION: 1. A few mild nonspecific abnormalities including in the right parietal bone and several ribs are noted as described above and these are suspicious for metastatic disease. The rib lesions could also be due to healing fractures. 2. A few additional abnormalities are noted particularly in the shoulders, sternoclavicular joints, hands, and left ankle region as described above and these are all likely arthritic or traumatic in etiology. None of these abnormalities is strongly suspicious for metastatic disease.
== END ==
LOC: HO.NUCMED 10:42
PROVIDERS: PCP Internal Medicine; Visit Provider Internal Medicine Medical Oncology
DX: M89.9 Disorder of bone, unspecified (principal)
CPT/HCPCS: 78306; A9503

== ENCOUNTER 2022-08-10 08:45 | Inpatient (IN) | payer MEDICARE, SELFPAY ==
[2022-08-10] VITALS (15 sets, daily range): BP systolic 119–152; BP diastolic 46–89; PULSE 94–109; RESP 16–38; TEMP 36.4–36.8; O2SAT 93–100; BMI 34.7
--- NOTE | ~2022-08-10 | CT_ITS ---
EXAMINATION: CTA CHEST WITH CONTRAST. CT ABDOMEN PELVIS WITH IV CONTRAST.. CLINICAL INFORMATION: 2 weeks post Covid COMPARISON: CT chest 12/18/2021 and chest x-ray 06/21/2022. TECHNIQUE: 5 mm thin axial and reformatted 3 mm thin sagittal, oblique and coronal images of chest were obtained following rapid IV 65 mL Omnipaque 350.. FINDINGS: CHEST: CTA: There is good opacification of poorly artery and its branches without intraluminal filling defect or narrowing. The left pulmonary artery is surrounded by large solid consolidation. The abdominal aorta is well opacified without aneurysm or dissection. A normal three-vessel branching thoracic arch is noted. Non-CTA: There is a large confluent consolidation/mass involving the entire left upper lobe and extending to the left mediastinum and hilar regions. Rest of lungs are well-expanded and clear of acute pneumonic process. The thyroid lobes are symmetric and normal. The central trachea and bronchi widely patent however there is minimal narrowing of left bronchus from circumferential left parahilar consolidation. There are coronary artery calcifications present. There are aortic window and right pretracheal abnormal-sized lymph nodes. A 1.4 cm the right pretracheal space and 1.2 cm aortic window lymph nodes are noted. There is no pleural effusion, thickening or calcification. The axilla and chest wall appears unremarkable. ABDOMEN AND PELVIS: The liver is heterogeneous with multiple hypodense lesions likely metastatic or infectious etiology. The largest lesion in the left hepatic lobe measures 4 cm on axial image 25/15. There is mild hepatomegaly. No intrahepatic ductal dilatation seen. The gallbladder has been surgically removed. Visualized spleen, pancreas and bilateral adrenal glands appear unremarkable. Both kidneys are symmetrical in size but bilateral nonenhancing renal cyst. No solid enhancing lesion, radiopaque calculi or hydronephrosis seen. The abdominal aorta is atherosclerotic and mildly dilated measuring 3.1 x 3.1 cm. Both common iliac arteries are normal caliber. There is scattered stool, diverticuli and gas seen throughout the colon. Most prominent in diameter lies seen in sigmoid colon without diverticulitis. The small bowel loops are normal caliber. Appendix is not visualized. However there are surgical adolfo in the right lower quadrant. The stomach is nondistended. No abnormal lymph nodes seen. There is no abdominal wall hernia. Imaging to the pelvis reveals unremarkable urinary bladder. No free fluid no abnormal pelvic or inguinal lymph nodes. Bone windows reveal ventral spondylosis with calcification of anterior longitudinal ligament throughout dorsal spine. There is degenerative disc changes and spondylosis throughout lumbar spine. Grade 1 anterolisthesis L4 over L5 is noted. There is total right hip prosthesis. CT/CT angio chest PE protocol IMPRESSION: No evidence of PE. No evidence aortic dissection one year as on. Large left upper lobe confluent mass or consolidation with extension to the mediastinum. There are abnormal mediastinal lymph nodes. Findings are highly suspicious for primary lesion. There are multiple hypodense liver lesions with central low density likely metastatic nodules. There is mild hepatomegaly. No abnormal abdominal or pelvic lymph nodes seen. Bilateral renal cysts. Colonic diverticulosis most prominent in the sigmoid region but no diverticulitis seen.
--- NOTE | ~2022-08-10 | XR_ITS ---
EXAMINATION: XR CHEST CLINICAL INFORMATION: Shortness of breath. COMPARISON: June 21, 2022. TECHNIQUE: Portable AP view of the chest was obtained. XR/XR chest 1V FINDINGS/IMPRESSION: Examination demonstrates a focal consolidative infiltrate with air bronchograms involving the left upper lobe. Question trace left pleural fluid. The findings are consistent with pneumonia. Recommend plain film follow-up to resolution after an appropriate course of therapy has been completed. The right lung appears clear. The heart appears normal in size. The aorta is mildly atherosclerotic. There are degenerative changes of the spine and shoulders.
--- NOTE | 2022-08-10 09:38 | ECG_ITS ---
Test Reason : sepsis Blood Pressure : / mmHG Vent. Rate : 091 BPM Atrial Rate : 091 BPM P-R Int : 212 ms QRS Dur : 092 ms QT Int : 344 ms P-R-T Axes : 073 057 072 degrees QTc Int : 423 ms Sinus rhythm with marked sinus arrhythmia with 1st degree A-V block with occasional Premature atrial complexes Nonspecific ST abnormality Inferior leads Intra-ventricular conduction delay Abnormal ECG When compared with ECG of 21-JUN-2022 10:39, Vent. rate has increased BY 32 BPM Referred By: Ricarda Duckworth Electronically Signed By:JOSE NÚÑEZ MD
--- NOTE | 2022-08-10 09:38 | ED_ITS ---
HPI - General Adult General Chief complaint: Upper Respiratory Symptoms Stated complaint: SOB Time Seen by Provider: 08/10/22 08:53 Source: patient, family (father) and EMS Mode of arrival: EMS Limitations: no limitations History of Present Illness HPI narrative: Patient is an 86 year old assigned female with a history of asthma, PE, and COVID-19 presenting to the emergency department today with continued shortness of breath and body aches. Patient states that earlier in July she was diagnosed with COVID-19 and she has continued to feel this way since then. Patient states that she continues to have shortness of breath and feels as though she is trying to cough something up but can't. Patient states that everything continues to hurt her. Patient denies any dizziness, lightheadedness, abdominal pain, nausea, vomiting, fever, chills, blurry vision, double vision, loss of vision, chest pain, back pain, night sweats, pain with urination, increased urinary frequency, increased urinary urgency, blood in her urine or stool, syncope or a near syncopal episode, recent trauma or falls, bowel i ncontinence, bladder incontinence, bowel retention, bladder retention, or any other complaints at this time. Onset (ago): week(s) (5) Severity: moderate Severity scale (1-10): 5 Pain Consistency: constant Relieving factors: none Exacerbating factors: none Associated symptoms: cough, shortness of breath and weakness Treatments prior to arrival: none Related Data Home Medications Medication Instructions Recorded Confirmed aspirin 81 mg tablet,delayed 81 mg PO DAILY 09/09/20 08/10/22 release ascorbate calcium (vitamin C) 500 500 mg PO DAILY 09/16/20 08/10/22 mg tablet cholecalciferol (vitamin D3) 25 25 mcg PO DAILY 09/16/20 08/10/22 mcg (1,000 unit) capsule albuterol sulfate 90 mcg/actuation 2 puff inhalation Q6H PRN Wheezing 08/10/22 08/10/22 aerosol inhaler Previous Rx's Medication Instructions Recorded fluticasone furoate 200 1 inh PO DAILY 90 days #180 ea 02/15/22 mcg-vilanterol 25 mcg/dose inhalation powder (Breo Ellipta) alirocumab 75 mg/mL subcutaneous 75 mg subcut Q2W 90 days #7 mL 05/25/22 pen injector (Praluent Pen) Allergies Allergy/AdvReac Type Severity Reaction Status Date / Time [id number] Reductase Allergy Mild MENTAL Verified 08/10/22 08:23 Inhibitor CHANGES [[id number] REDUCTASE INHIBITOR] rosuvastatin [Crestor] Allergy Unknown weakness,muscle Verified 08/10/22 08:23 aches Review of Systems Constitutional: Constitutional: Reports no additional constitutional compla ints, Reports body ache(s), Denies chills, Denies fever(s) and Denies night sweats Eyes: Eyes: Reports no additional eye complaints, Denies blurry vision, Denies change in vision, Denies diplopia, Denies eye discharge, Denies loss of vision and Denies eye pain ENT: Denies dizziness Cardiovascular: Cardiovascular: Reports no additional cardiovascular complaints, Denies chest pain, Denies lightheadedness, Denies Loss of Consciousness and Reports dyspnea Respiratory: Respiratory: Reports no additional respiratory complaints, Reports cough and Reports dyspnea Gastrointestinal: Gastrointestinal: Reports no additional gastrointestinal complaints, Denies abdominal pain, Denies melena, Denies hematochezia, Denies change in bowel habits and Denies change in stool character Genitourinary: Genitourinary: Denies hematuria, Denies urinary frequency, Denies dysuria, Denies urinary incontinence, Denies urinary hesitancy and Denies urinary urgency Musculoskeletal: Musculoskeletal: Reports no additional musculoskeletal complaints, Denies numbness and Denies tingling Neurologic: Denies dizziness, Denies loss of vision, Denies numbness and Denies tingling Psychiatric: Psychiatric: Reports no additional psychiatric complaints Endocrine: Endocrine: Reports no additional endocrine complaints Hematologic/Lymphatic: Hematologic/Lymphatic: Reports no additional hematologic/lymphatic complaints Allergic/Immunologic: Allergic/Immunologic: Reports no additional allergic/immunologic complaints [facility] Past Medical History Attestation statement: The following information was validated with the patient. 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 Carotid stenosis, bilateral Cerebrovascular accident, embolic Change in mole Encounter for general adult medical examination with abnormal findings FH: total knee replacement Hospital discharge follow-up Hypertension Obesity Obesity Other and unspecified hyperlipidemia Pulmonary embolism Shortness of Breath Surgical History History of appendectomy History of cholecystectomy History of hysterectomy History of lobectomy of lung History of total right hip replacement Family History Family History Father Cancer Mother Cerebral aneurysm Breast cancer Sister Cancer Social History Social History Household Members: Spouse and Children Housing: House Are you a primary managed care analyst to a significant other at home: No Do you presently have visiting nurse or other home services: No Alcohol intake: unknown Patient Tobacco Use Status: Former Tobacco user Quit Date: 10+ years ago Tobacco use type: Cigarette Years Smoked: 50 years e-Cigarette/Vaping Use: Never Used Use of substances other than those prescribed or required for medical reasons: No Advance Directives: Yes Advance Directives Information Provided: Yes Advance Directives on File: No service: No Current occupational status: retired Cognitive needs: No Hearing needs: No Vision needs: Yes Physical Exam ED Vital Signs: Vital Signs - 24 hr 08/10/22 09:06 08/10/22 10:00 08/10/22 10:15 Temperature 98 F Pulse Rate 99 103 H Respiratory Rate 38 H 28 H Blood Pressure 140/89 H Pulse Oximetry 93 100 Oxygen Delivery Method Room Air Room Air 08/10/22 10:33 08/10/22 11:25 08/10/22 12:39 Temperature 97.5 F Pulse Rate 100 103 H 95 Respiratory Rate 25 H 18 17 Blood Pressure 130/58 L 120/69 119/46 L Pulse Oximetry 93 95 94 Oxygen Delivery Method Room Air Room Air Room Air 08/10/22 14:34 Temperature Pulse Rate 100 Respiratory Rate 35 H Blood Pressure 138/63 Pulse Oximetry 94 Oxygen Delivery Method Room Air BMI result Body Mass Index 34.7 Const General: cooperative, no acute distress, alert and awake Nutritional Appearance: well nourished Orientation/consciousness: patient oriented x3 Limitations: no limitations HENMT Head: Yes normal to inspection and Yes atraumatic Ears: hearing grossly normal bilaterally and external ears normal General nose exam: Normal external nose present, no nasal discharge noted and no epistaxis Face and sinus: Yes normal facial exam, No abrasion and No laceration Mouth: Normal oral and palatal mucosa present, no drooling and no muffled voice Eyes General: appearance normal, both eyes and all related structures Periorbital: periorbital findings normal Eyelids: Yes eyelids normal Conjunctivae: conjunctivae normal Pupils: Equal, round and reactive pupils present EOM: EOMs intact bilaterally Neck Neck: Yes normal visual inspection, Yes full ROM and Yes no lymphadenopathy Chest Chest palpation & inspection: normal inspection of the chest Resp Effort & Inspection: able to speak in complete sentences and labored Auscultation: rales diffuse and wheezes scattered wheezes GI Inspection: Yes normal to inspection Neuro General: patient oriented x3 and moves all extremities Cranial nerves: Yes Equal, round and reactive pupils present Cognition (Neuro): normal cognition Motor exam (neuro): 5/5 motor strength present throughout Sensory Exam: Normal double simultaneous stimulation for sensation Coordination: [id number] test normal Extrem General: Yes normal to inspection, Yes full ROM and Yes capillary refill normal Psych Appearance: grossly normal Mental Status: mental status grossly normal Affect: normal affect Attitude: cooperative Thought process: Normal thought process present Thought content: Normal thought content present Insight: Good insight present (Psych) Medical Decision Making [facility] Narrative Medical decision making narrative: Patient is an 86 year old assigned female with a history of asthma, right sided lung cancer, and hypertension presenting to the emergency department today with COVID and shortness of breath. Patient's physical exam showed an individual with labored respirations, tachypnea, and diffuse rales/wheezing. Patient's blood work showed an elevated WBC count at 15.1 and an elevated lactic acid of 3.7. Patient's repeat lactic acid after her 30mg/kg fluid bolus was initiated, was 2.3. Patient's EKG was unremarkable. Patient's chest x-ray showed a focal consolidative infiltrate with air bronchograms involving the left upper lobe, findings consistent with pneumonia. Patient's chest CT showed large left upper lobe confluent mass or consolidation with extension to the mediastinum with abnormal mediastinum lymph nodes, highly suspicious for primary lesions. Jacquelin mann's abdominal CT showed multiple hypodense liver lesions that likely represent metastatic nodules. I considered the patient to be possibly septic at 1001, at which point I ordered Zithromax and Rocephin. Patient was also given a duoneb and solumedrol which she stated helped her symptoms some what. I spoke to the hospitalist team who agreed to hospital admission. I explained my physical exam findings as well as all test results to the patient and the patient's . I answered all questions asked by the patient and the patient's . Patient and the patient's verbalized agreement and understanding with this treatment plan and admission. Medical Records Medical records reviewed: Yes I reviewed the patient's medical records. Lab Data Lab results reviewed: Yes I reviewed the patient's lab results. Result diagrams: 08/10/22 10:06 08/10/22 10: Labs: Lab Results 08/10/22 08/10/22 08/10/22 Range/Units 10:06 10:06 10:06 WBC 15.1 H (4.8-10.8) X10*3/uL RBC 3.91 L (4.20-5.50) X10*6/uL Hgb 11.5 L (12.0-16.0) g/dl Hct 35.5 L (37.0-47.0) % MCV 90.8 (80.0-98.0) fL MCH 29.4 (27.0-33.0) pg MCHC 32.4 (31.0-35.0) g/dl RDW 14.8 (11.0-16.0) % Plt Count 415 H D (160-400) X10*3/uL MPV 9.5 (9.4-12.3) fL Immature Gran % (Auto) 0.7 H (0.0-0.4) % Neut % (Auto) 80.5 H (45-73) % Lymph % (Auto) 11.7 L (20-40) % [place] % (Auto) 6.8 (2-11) % Eos % (Auto) 0.1 (0-4) % Baso % (Auto) 0.2 (0-2) % Lymph # (Auto) 1.8 (1.2-4.9) X10*3/uL [place] # (Auto) 1.0 (0.1-1.2) X10*3/uL Eos # (Auto) 0.0 (0.0-0.4) X10*3/uL Baso # (Auto) 0.0 (0.0-0.2) X10*3/uL Abs Immat Gran (auto) 0.10 H (0.00-0.03) X10*3/uL Absolute Neuts (auto) 12.1 H (2.0-8.3) x10*3/uL Absolute Nucleated RBC 0.000 (0.0-0.012) X10*3/uL Nucleated RBC % (auto) 0.0 (0.0-0.2) /100WBC Sodium 135 (135-145) mmol/L Potassium 4.1 (3.3-5.1) mmol/L Chloride 98 (96-108) mmol/L Carbon Dioxide 24 (22-29) mmol/L Anion Gap 17 (12-20) BUN 22 H (9-16) mg/dL Creatinine 0.82 (0.5-1.4) mg/dL Estim Creat Clear Calc 52.0 Estimated GFR > 60 Random Glucose 120 H (60-115) mg/dL Lactic Acid 3.7 H* (0.5-2.0) mmol/L Lactic Acid F/U @ 2Hr (0.5-2.0) mmol/L Lactic Acid F/U @ 4Hr (0.5-2.0) mmol/L Calcium 8.7 (8.4-10.2) mg/dL Magnesium 1.7 (1.6-2.6) mg/dL Total Bilirubin 1.0 (0.0-1.0) mg/dL AST 62 H (5-31) U/L ALT 58 H (0-31) U/L Alkaline Phosphatase 230 H D (39-117) U/L Troponin I High Sens (<3.5-17.0) ng/L B-Natriuretic Peptide (<100) pg/mL Total Protein 5.7 L (6.5-8.0) g/dL Albumin 2.9 L D (3.5-5.0) g/dL Influenza Type A (PCR) (Negative) Influenza Type B (PCR) (Negative) RSV RNA Qual (PCR) (Negative) SARS-CoV-2 RNA (RT-PCR) (Negative) 08/10/22 08/10/22 08/10/22 Range/Units 10:06 10:07 12:20 WBC (4.8-10.8) X10*3/uL RBC (4.20-5.50) X10*6/uL Hgb (12.0-16.0) g/dl Hct (37.0-47.0) % MCV (80.0-98.0) fL MCH (27.0-33.0) pg MCHC (31.0-35.0) g/dl RDW (11.0-16.0) % Plt Count (160-400) X10*3/uL MPV (9.4-12.3) fL Immature Gran % (Auto) (0.0-0.4) % Neut % (Auto) (45-73) % Lymph % (Auto) (20-40) % [place] % (Auto) (2-11) % Eos % (Auto) (0-4) % Baso % (Auto) (0-2) % Lymph # (Auto) (1.2-4.9) X10*3/uL [place] # (Auto) (0.1-1.2) X10*3/uL Eos # (Auto) (0.0-0.4) X10*3/uL Baso # (Auto) (0.0-0.2) X10*3/uL Abs Immat Gran (auto) (0.00-0.03) X10*3/uL Absolute Neuts (auto) (2.0-8.3) x10*3/uL Absolute Nucleated RBC (0.0-0.012) X10*3/uL Nucleated RBC % (auto) (0.0-0.2) /100WBC Sodium (135-145) mmol/L Potassium (3.3-5.1) mmol/L Chloride (96-108) mmol/L Carbon Dioxide (22-29) mmol/L Anion Gap (12-20) BUN (9-16) mg/dL Creatinine (0.5-1.4) mg/dL Estim Creat Clear Calc Estimated GFR Random Glucose (60-115) mg/dL Lactic Acid (0.5-2.0) mmol/L Lactic Acid F/U @ 2Hr 2.3 H* (0.5-2.0) mmol/L Lactic Acid F/U @ 4Hr (0.5-2.0) mmol/L Calcium (8.4-10.2) mg/dL Magnesium (1.6-2.6) mg/dL Total Bilirubin (0.0-1.0) mg/dL AST (5-31) U/L ALT (0-31) U/L Alkaline Phosphatase (39-117) U/L Troponin I High Sens 5.6 D (<3.5-17.0) ng/L B-Natriuretic Peptide 57 (<100) pg/mL Total Protein (6.5-8.0) g/dL Albumin (3.5-5.0) g/dL Influenza Type A (PCR) NEGATIVE (Negative) Influenza Type B (PCR) NEGATIVE (Negative) RSV RNA Qual (PCR) NEGATIVE (Negative) SARS-CoV-2 RNA (RT-PCR) POSITIVE A (Negative) 08/10/22 Range/Units 14:39 WBC (4.8-10.8) X10*3/uL RBC (4.20-5.50) X10*6/uL Hgb (12.0-16.0) g/dl Hct (37.0-47.0) % MCV (80.0-98.0) fL MCH (27.0-33.0) pg MCHC (31.0-35.0) g/dl RDW (11.0-16.0) % Plt Count (160-400) X10*3/uL MPV (9.4-12.3) fL Immature Gran % (Auto) (0.0-0.4) % Neut % (Auto) (45-73) % Lymph % (Auto) (20-40) % [place] % (Auto) (2-11) % Eos % (Auto) (0-4) % Baso % (Auto) (0-2) % Lymph # (Auto) (1.2-4.9) X10*3/uL [place] # (Auto) (0.1-1.2) X10*3/uL Eos # (Auto) (0.0-0.4) X10*3/uL Baso # (Auto) (0.0-0.2) X10*3/uL Abs Immat Gran (auto) (0.00-0.03) X10*3/uL Absolute Neuts (auto) (2.0-8.3) x10*3/uL Absolute Nucleated RBC (0.0-0.012) X10*3/uL Nucleated RBC % (auto) (0.0-0.2) /100WBC Sodium (135-145) mmol/L Potassium (3.3-5.1) mmol/L Chloride (96-108) mmol/L Carbon Dioxide (22-29) mmol/L Anion Gap (12-20) BUN (9-16) mg/dL Creatinine (0.5-1.4) mg/dL Estim Creat Clear Calc Estimated GFR Random Glucose (60-115) mg/dL Lactic Acid (0.5-2.0) mmol/L Lactic Acid F/U @ 2Hr (0.5-2.0) mmol/L Lactic Acid F/U @ 4Hr 3.2 H* (0.5-2.0) mmol/L Calcium (8.4-10.2) mg/dL Magnesium (1.6-2.6) mg/dL Total Bilirubin (0.0-1.0) mg/dL AST (5-31) U/L ALT (0-31) U/L Alkaline Phosphatase (39-117) U/L Troponin I High Sens (<3.5-17.0) ng/L B-Natriuretic Peptide (<100) pg/mL Total Protein (6.5-8.0) g/dL Albumin (3.5-5.0) g/dL Influenza Type A (PCR) (Negative) Influenza Type B (PCR) (Negative) RSV RNA Qual (PCR) (Negative) SARS-CoV-2 RNA (RT-PCR) (Negative) Imaging Data Chest x-ray: Attestation: I personally reviewed and interpreted this imaging study as follows: My impression: Left sided pneumonia. Radiologist's impression: EXAMINATION: XR CHEST CLINICAL INFORMATION: Shortness of breath. COMPARISON: June 21, 2022. TECHNIQUE: Portable AP view of the chest was obtained. XR/XR chest 1V FINDINGS/IMPRESSION: ? Examination demonstrates a focal consolidative infiltrate with air bronchograms involving the left upper lobe. Question trace left pleural fluid. The findings are consistent with pneumonia. Recommend plain film follow-up to resolution after an appropriate course of therapy has been completed. ? The right lung appears clear. The heart appears normal in size. The aorta is mildly atherosclerotic. ? There are degenerative changes of the spine and shoulders. Dictated By: Nolberto Valladares Signed By: Electronically signed by Nolberto?Blaine DD/ 1120 CT scan - abdomen/pelvis and chest: Attestation: I personally reviewed and interpreted this imaging study as follows: My impression: Left lung mass and multiple liver lesions. Radiologist's impression: EXAMINATION: CTA CHEST WITH CONTRAST. CT ABDOMEN PELVIS WITH IV CONTRAST.. CLINICAL INFORMATION: 2 weeks post Covid? COMPARISON: CT chest 12/18/2021 and chest x-ray 06/21/2022.? TECHNIQUE: 5 mm thin axial and reformatted 3 mm thin sagittal, oblique and coronal images of chest were obtained following rapid IV 65 mL Omnipaque 350.. FINDINGS: CHEST: CTA: There is good opacification of poorly artery and its branches without intraluminal filling defect or narrowing. The left pulmonary artery is surrounded by large solid consolidation. The abdominal aorta is well opacified without aneurysm or dissection. A normal three-vessel branching thoracic arch is noted. Non-CTA: There is a large confluent consolidation/mass involving the entire left upper lobe and extending to the left mediastinum and hilar regions. Rest of lungs are well-expanded and clear of acute pneumonic process. The thyroid lobes are symmetric and normal. The central trachea and bronchi widely patent however there is minimal narrowing of left bronchus from circumferential left parahilar consolidation. There are coronary artery calcifications present. There are aortic window and right pretracheal abnormal-sized lymph nodes. A 1.4 cm the right pretracheal space and 1.2 cm aortic window lymph nodes are noted. There is no pleural effusion, thickening or calcification. The axilla and? chest wall appears unremarkable. ABDOMEN AND PELVIS: The liver is heterogeneous with multiple hypodense lesions likely metastatic or infectious etiology. The largest lesion in the left hepatic lobe measures 4 cm on axial image 25/15. There is mild hepatomegaly. No intrahepatic ductal dilatation seen. The gallbladder has been surgically removed. Visualized spleen, pancreas and bilateral adrenal glands appear unremarkable. Both kidneys are symmetrical in size but bilateral nonenhancing renal cyst. No solid enhancing lesion, radiopaque calculi or hydronephrosis seen. The abdominal aorta is atherosclerotic and mildly dilated measuring 3.1 x 3.1 cm. Both common iliac arteries are normal caliber. There is scattered stool, diverticuli and gas seen throughout the colon. Most prominent in diameter lies seen in sigmoid colon without diverticulitis. The small bowel loops are normal caliber. Appendix is not visualized. However there are surgical adolfo in the right lower quadrant. The stomach is nondistended. No abnormal lymph nodes seen. There is no abdominal wall hernia. Imaging to the pelvis reveals unremarkable urinary bladder. No free fluid no abnormal pelvic or inguinal lymph nodes. Bone windows reveal ventral spondylosis with calcification of anterior longitudinal ligament throughout dorsal spine. There is degenerative disc changes and spondylosis throughout lumbar spine. Grade 1 anterolisthesis L4 over L5 is noted. There is total right hip prosthesis. CT/CT abdomen pelvis w IV con IMPRESSION: No evidence of PE. ? No evidence aortic dissection one year as on. ? Large left upper lobe confluent mass or consolidation with extension to the mediastinum. There are abnormal mediastinal lymph nodes. Findings are highly suspicious for primary lesion. ? There are multiple hypodense liver lesions with central low density likely metastatic nodules. There is mild hepatomegaly. No abnormal abdominal or pelvic lymph nodes seen. ? Bilateral renal cysts. ? Colonic diverticulosis most prominent in the sigmoid region but no diverticulitis seen. Dictated By: Sandip Moser MD Signed By: Electronically signed by Sandip Moser MD 08/10/22 1336 ECG Data Attestation: I personally reviewed and interpreted this ECG as follows: Prior ECG tracings: available for review Interpretation: Vent. Rate: 091 BPM ? ? Atrial Rate: 091 BPM P-R Int: 212 ms? QRS Dur: 092 ms QT Int: 344 ms ? ? ? P-R-T Axes: 073 057 072 degrees QTc Int: 423 ms ? Sinus rhythm with marked sinus arrhythmia with 1st degree A-V block with occasional Premature atrial complexes Nonspecific ST abnormality Inferior leads Intra-ventricular conduction delay Abnormal ECG When compared with ECG of 21-JUN-2022 10:39, Vent. rate has increased BY? 32 BPM ? Electronically Signed By:JOSE NÚÑEZ MD Dictated By: Mark Núñez MD Signed By: Electronically signed by Mark Núñez MD 08/10/22 1231 Critical Care Time Critical Care Time Critical Care Time: Yes Total Critical Care Time: 30 Attestation: I spent 30 minutes of Critical Care Time with this patient. This does not include time spent on separately reported billable procedures. Discharge Plan Discharge Clinical Impression: Pneumonia Patient Disposition: Admitted As Inpatient
[2022-08-10] MEDS: Albuterol Sulfate 2.5 MG, Albuterol/Iprat 2.5/0.5MG 3 ML 3 ML INHALE (09:59)
[2022-08-10 10:13] LABS: MANUAL DIFF FLAG NO
[2022-08-10 10:15] LABS: Basophils Percent Auto 0.2 % (0-2); Eosinophils Percent Auto 0.1 % (0-4); Hematocrit 35.5 % (37.0-47.0); Hemoglobin 11.5 g/dl (12.0-16.0); Imm Gran Pct Auto 0.7 % (0.0-0.4); Lymphocytes Absolute Auto 1.8 X10*3/uL (1.2-4.9); Lymphocytes Percent Auto 11.7 % (20-40); Mean Corpuscular HGB Conc 32.4 g/dl (31.0-35.0); Mean Corpuscular Hemoglobin 29.4 pg (27.0-33.0); Mean Corpuscular Volume 90.8 fL (80.0-98.0); Mean Platelet Volume 9.5 fL (9.4-12.3); Monocytes Percent Auto 6.8 % (2-11); Neutrophils Absolute Auto 12.1 x10*3/uL (2.0-8.3); Neutrophils Percent Auto 80.5 % (45-73); Platelet Count 415 X10*3/uL (160-400); Red Blood Count 3.91 X10*6/uL (4.20-5.50); Red Cell Distribution Width 14.8 % (11.0-16.0); White Blood Count 15.1 X10*3/uL (4.8-10.8)
[2022-08-10] MEDS: cefTRIAXone sodium 1 GM in 0.9 % Sodium Chloride 50 ML IV (10:26)
[2022-08-10] MEDS: methylPREDNISolone Sod Succ 125 MG/2 ML VIAL 60 MG IVPUSH (10:26)
[2022-08-10 10:29] LABS: Alanine Aminotransferase 58 U/L (0-31); Albumin Level 2.9 g/dL (3.5-5.0); Alkaline Phosphatase 230 U/L (39-117); Anion Gap 17 (12-20); Aspartate Amino Transferase 62 U/L (5-31); Blood Urea Nitrogen 22 mg/dL (9-16); Calcium 8.7 mg/dL (8.4-10.2); Carbon Dioxide 24 mmol/L (22-29); Chloride 98 mmol/L (96-108); Estimated Glomerular Filt Rate > 60; Glucose Random 120 mg/dL (60-115); Magnesium 1.7 mg/dL (1.6-2.6); Potassium 4.1 mmol/L (3.3-5.1); Sodium 135 mmol/L (135-145); Total Protein 5.7 g/dL (6.5-8.0)
[2022-08-10 10:37] LABS: Lactic Acid 3.7 mmol/L (0.5-2.0); Troponin-I High Sensitivity 5.6 ng/L (<3.5-17.0)
[2022-08-10 11:00] LABS: B Type Natriuretic Peptide 57 pg/mL (<100)
--- NOTE | 2022-08-10 11:02 | PC.NURSE ---
Patient in CT scan. Provider instructed to start fluid and antibiotic when patient returns from scan.
[2022-08-10 11:07] LABS: Influenza A PCR NEGATIVE (Negative); Influenza B PCR NEGATIVE (Negative); Resp Syncy Virus RNA Qual PCR NEGATIVE (Negative); SARS COV2 PCR INHOUSE POSITIVE (Negative)
[2022-08-10] MEDS: iohexoL 350 MG/ML 100 ML INFUS..BTL IV (11:24)
[2022-08-10] MEDS: Azithromycin 500 MG in 0.9 % Sodium Chloride 250 ML 125 MG IV (11:46)
--- NOTE | 2022-08-10 12:09 | PHA.MEDREC ---
Pharmacy Consult ? Medication Reconciliation Pharmacy has completed the medication reconciliation. Patient confirmed all medications. Reports she does not take ezetimbie. Reports she does not want to be given Breo at the hospital. Airam Nolen, FelixD
[2022-08-10 12:10] LABS: Reflex Lactate? Lactic Acid Added
[2022-08-10 12:44] LABS: ~Lactic Acid-LAB USE ONLY 2.3 mmol/L (0.5-2.0)
--- NOTE | 2022-08-10 12:54 | PC.NURSE ---
Provider made aware of patients respirations
[2022-08-10 14:22] LABS: Reflex Lactate? 2 Y
[2022-08-10 14:57] LABS: ~Lactic Acid-LAB USE ONLY 3.2 mmol/L (0.5-2.0)
--- NOTE | 2022-08-10 15:11 | P.HPHOSP_ITS ---
History of Present Illness Date of Service: 08/10/22 Chief Complaint: Dyspnea on exertion, generalized weakness An 86 years old lady with you of SCC lung CA, DJD, HTN, COPD among others who presents to the hospital as a referral from oncology office for worsening dyspnea and shortness of breath. The patient reports that she was diagnosed with COVID almost 1 month ago and never recovered from it was she has been complaining of worsening dyspnea, feeling unwell and weak. She was followed today with Dr. Pierce from Oncology who noticed that the patient looks sick and unwell and recommended her to visit the emergency. She reports that she has decreased oral intake, feeling weak, dyspnea with exercise, dry cough, denies any fever, chills or chest pain. In the emergency a CT scan of the chest was consistent with left lobe infiltrate and likely mass. CT abdomen concerning for possible metastasis to liver. Admitted for further evaluation and treatment. 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 Carotid stenosis, bilateral Cerebrovascular accident, embolic Change in mole Encounter for general adult medical examination with abnormal findings FH: total knee replacement Hospital discharge follow-up Hypertension Obesity Obesity Other and unspecified hyperlipidemia Pulmonary embolism Shortness of Breath Family History Father Cancer Mother Cerebral aneurysm Breast cancer Sister Cancer Surgical History History of appendectomy History of cholecystectomy History of hysterectomy History of lobectomy of lung History of total right hip replacement Social History Household Members: Spouse and Children Housing: House Are you a primary career coordinator to a significant other at home: No Do you presently have visiting nurse or other home services: No Alcohol intake: unknown Patient Tobacco Use Status: Former Tobacco user Quit Date: 10+ years ago Tobacco use type: Cigarette Years Smoked: 50 years e-Cigarette/Vaping Use: Never Used Use of substances other than those prescribed or required for medical reasons: No Advance Directives: Yes Advance Directives Information Provided: Yes Advance Directives on File: No service: No Current occupational status: retired Cognitive needs: No Hearing needs: No Vision needs: Yes Meds Allergies Allergy/AdvReac Type Severity Reaction Status Date / Time Frodlcs-ZBO-[id number] Reductase Allergy Mild MENTAL Verified 08/10/22 08:23 Inhibitor CHANGES [[id number] REDUCTASE INHIBITOR] rosuvastatin [Crestor] Allergy Unknown weakness,muscle Verified 08/10/22 08:23 aches Active Medications: Current Medications Acetaminophen (Acetaminophen 325 Mg Tablet) 650 mg PO Q6H PRN PRN Reason: Pain, Mild (Pain Scale 1-3) Albuterol Sulfate (Albuterol Sulfate 90 Mcg 8 Gm Inhaler) 2 puff INHALE Q6H PRN PRN Reason: Wheezing Albuterol/Ipratropium (Albuterol/Iprat 2.5/0.5mg 3 Ml Ampul.Neb) 3 ml INHALE RQ4H WHILE AWAKE [facility] Ascorbic Acid (Ascorbic Acid 500 Mg Tablet) 500 mg PO DAILY [facility] Aspirin (Aspirin Enteric Coated 81 Mg Tablet.Dr) 81 mg PO DAILY [facility] Enoxaparin Sodium (Enoxaparin Sodium 40 Mg/0.4 Ml Syringe) 40 mg SUBCUT Q24H [facility] Fluticasone/Vilanterol (Fluticasone/Vilanterol 200/25 Blst.W.Dev) 1 puff INHALE RDAILY [facility] Azithromycin 500 mg/ Sodium (Chloride) 250 mls @ 125 mls/hr IV Q24H [facility] Ceftriaxone Sodium 1 gm/ (Sodium Chloride) 50 mls @ 100 mls/hr IV Q24H [facility] Methylprednisolone Sodium Succinate (Methylprednisolone Sod Succ 40 Mg/Ml Vial) 40 mg IVPUSH Q12H [facility] Ondansetron HCl (Ondansetron Hcl 4 Mg/2 Ml Vial) 4 mg IVPUSH Q8H PRN PRN Reason: Nausea and Vomiting Pharmacy Consult (Consult Rx Perform Med Rec) 1 each MISCELLANE ONCE PRN PRN Reason: Consult order Sodium Chloride (0.9 % Sodium Chloride Flush 3 Ml Syringe) 3 ml IVFLUSH QSHIFT [facility] Vitamin D (Cholecalciferol (Vitamin D3) 25 Mcg Tablet) 25 mcg PO DAILY [facility] Home Medications Medication Instructions Recorded Confirmed Last Taken Type aspirin 81 mg tablet,delayed 81 mg PO DAILY 09/09/20 08/10/22 08/10/22 History release ascorbate calcium (vitamin C) 500 500 mg PO DAILY 09/16/20 08/10/22 08/10/22 History mg tablet cholecalciferol (vitamin D3) 25 25 mcg PO DAILY 09/16/20 08/10/22 08/10/22 History mcg (1,000 unit) capsule albuterol sulfate 90 mcg/actuation 2 puff inhalation Q6H PRN Wheezing 08/10/22 08/10/22 Unknown History aerosol inhaler Physical Exam Vital Signs and Narrative: Vital Signs: Last Vital Signs Temp 97.5 F 08/10/22 10:33 Pulse 100 08/10/22 14:34 Resp 35 H 08/10/22 14:34 BP 138/63 08/10/22 14:34 Pulse Ox 94 08/10/22 14:34 O2 Del Method 08/10/22 14:34 BMI result Body Mass Index 34.7 Const: Other: Constitutional : Alert, oriented, in respiratory distress Neck : Normal inspection, Supple Cardiovascular : RRR, no JVP, +1 bilateral lower extremity edema Respiratory : Decreased bilateral air entry, no crackles, bilateral expiratory wheezes Gastrointestinal: soft, lax, Normal bowel sounds, Non tender Skin : Warm, Dry Neurological : Alert & oriented x3, No focal deficit Results Labs CBC and Chem 7: 08/10/22 10:06 08/10/22 10:06 Labs: Laboratory Results - last 24 hr 08/10/22 08/10/22 08/10/22 10:06 10:06 10:06 MCV 90.8 MCH 29.4 MCHC 32.4 RDW 14.8 Plt Count 415 H D MPV 9.5 Immature Gran % (Auto) 0.7 H Neut % (Auto) 80.5 H Lymph % (Auto) 11.7 L Power % (Auto) 6.8 Eos % (Auto) 0.1 Baso % (Auto) 0.2 Lymph # (Auto) 1.8 Power # (Auto) 1.0 Eos # (Auto) 0.0 Baso # (Auto) 0.0 Abs Immat Gran (auto) 0.10 H Absolute Neuts (auto) 12.1 H Absolute Nucleated RBC 0.000 Nucleated RBC % (auto) 0.0 Anion Gap 17 Estim Creat Clear Calc 52.0 Estimated GFR > 60 Random Glucose 120 H Lactic Acid 3.7 H* Lactic Acid F/U @ 2Hr Lactic Acid F/U @ 4Hr Calcium 8.7 Magnesium 1.7 Total Bilirubin 1.0 AST 62 H ALT 58 H Alkaline Phosphatase 230 H D Troponin I High Sens B-Natriuretic Peptide Total Protein 5.7 L Albumin 2.9 L D Influenza Type A (PCR) Influenza Type B (PCR) RSV RNA Qual (PCR) SARS-CoV-2 RNA (RT-PCR) 08/10/22 08/10/22 08/10/22 10:06 10:07 12:20 MCV MCH MCHC RDW Plt Count MPV Immature Gran % (Auto) Neut % (Auto) Lymph % (Auto) Power % (Auto) Eos % (Auto) Baso % (Auto) Lymph # (Auto) Power # (Auto) Eos # (Auto) Baso # (Auto) Abs Immat Gran (auto) Absolute Neuts (auto) Absolute Nucleated RBC Nucleated RBC % (auto) Anion Gap Estim Creat Clear Calc Estimated GFR Random Glucose Lactic Acid Lactic Acid F/U @ 2Hr 2.3 H* Lactic Acid F/U @ 4Hr Calcium Magnesium Total Bilirubin AST ALT Alkaline Phosphatase Troponin I High Sens 5.6 D B-Natriuretic Peptide 57 Total Protein Albumin Influenza Type A (PCR) NEGATIVE Influenza Type B (PCR) NEGATIVE RSV RNA Qual (PCR) NEGATIVE SARS-CoV-2 RNA (RT-PCR) POSITIVE A 08/10/22 14:39 MCV MCH MCHC RDW Plt Count MPV Immature Gran % (Auto) Neut % (Auto) Lymph % (Auto) Power % (Auto) Eos % (Auto) Baso % (Auto) Lymph # (Auto) Power # (Auto) Eos # (Auto) Baso # (Auto) Abs Immat Gran (auto) Absolute Neuts (auto) Absolute Nucleated RBC Nucleated RBC % (auto) Anion Gap Estim Creat Clear Calc Estimated GFR Random Glucose Lactic Acid Lactic Acid F/U @ 2Hr Lactic Acid F/U @ 4Hr 3.2 H* Calcium Magnesium Total Bilirubin AST ALT Alkaline Phosphatase Troponin I High Sens B-Natriuretic Peptide Total Protein Albumin Influenza Type A (PCR) Influenza Type B (PCR) RSV RNA Qual (PCR) SARS-CoV-2 RNA (RT-PCR) Imaging Radiologist's Impressions: Impressions Chest X-Ray 08/10/22 11:20 FINDINGS/IMPRESSION: Examination demonstrates a focal consolidative infiltrate with air bronchograms involving the left upper lobe. Question trace left pleural fluid. The findings are consistent with pneumonia. Recommend plain film follow-up to resolution after an appropriate course of therapy has been completed. The right lung appears clear. The heart appears normal in size. The aorta is mildly atherosclerotic. There are degenerative changes of the spine and shoulders. Abdomen/Pelvis CT 08/10/22 11:33 IMPRESSION: No evidence of PE. No evidence aortic dissection one year as on. Large left upper lobe confluent mass or consolidation with extension to the mediastinum. There are abnormal mediastinal lymph nodes. Findings are highly suspicious for primary lesion. There are multiple hypodense liver lesions with central low density likely metastatic nodules. There is mild hepatomegaly. No abnormal abdominal or pelvic lymph nodes seen. Bilateral renal cysts. Colonic diverticulosis most prominent in the sigmoid region but no diverticulitis seen. Chest CTA 08/10/22 11:33 IMPRESSION: No evidence of PE. No evidence aortic dissection one year as on. Large left upper lobe confluent mass or consolidation with extension to the mediastinum. There are abnormal mediastinal lymph nodes. Findings are highly suspicious for primary lesion. There are multiple hypodense liver lesions with central low density likely metastatic nodules. There is mild hepatomegaly. No abnormal abdominal or pelvic lymph nodes seen. Bilateral renal cysts. Colonic diverticulosis most prominent in the sigmoid region but no diverticulitis seen. Assessment and Plan (1) Pneumonia: Status: Acute (2) Sepsis: Status: Acute Plan An 86 years old lady with you of SCC lung CA, DJD, HTN, COPD among others who presents to the hospital as a referral from oncology office for worsening dyspnea and shortness of breath. Sepsis secondary to pneumonia Leukocytosis, lactic acidosis, tachycardia and tachypneic Pending blood cultures Lactic acidosis worsened after DuoNebs, to monitor CXR showing any evidence of left lower lobe infiltrate CTA negative for PE Status through mycin and Ceftin Get pulmonary evaluation Wean oxygen down as tolerated Left upper lobe mass History of cancer Get pulmonology evaluation To follow Dr. Pierce as outpatient Exacerbation Bilateral scattered wheezes Start steroid therapy DuoNebs around the clock Lower extremities edema Patient reports having chronic edema but worse at this point Will need more protein intake, Ensure ordered Hold on Lasix as the patient receiving IV fluid for sepsis protocol DVT PPX Eliquis The patient will need lumbar to overnight hospital stay for treatment of sepsis secondary to pneumonia and evaluation of new lung mass to prevent possible decompensation into acute hypoxic failure. Quality Stroke Does the patient have a stroke diagnosis?: No VTE Prior VTE?: No VTE Risk Level:: Medical - moderate - high VTE Device Contraindication: Treatment Not Indicated VTE Drug Contraindication: N/A - Med Ordered
--- NOTE | 2022-08-10 15:14 | PC.NURSE ---
Patient reports that she took these medications this am.
--- NOTE | 2022-08-10 15:22 | PC.NURSE ---
Addendum entered by Manuel Dias 08/10/22 17:26: Patient received treatment from respiratory. Reports she is feeling a bit better. Patient continues to have respiratory rate and HR that is elevated. MD aware Original Note: MD aware of patients RR and HR
[2022-08-10] MEDS: Enoxaparin Sodium 40 MG/0.4 ML SYRINGE SUBCUT (15:33)
[2022-08-10] MEDS: Albuterol/Iprat 2.5/0.5MG 3 ML AMPUL.NEB INHALE ×2 (16:04→19:51)
--- NOTE | 2022-08-10 18:31 | PC.NURSE ---
Dr. Loyola phone order for prn duoneb q4 hours
--- NOTE | 2022-08-10 19:42 | PC.NURSE ---
Care of patient assumed at 1900. Patient found seated up in stretcher eating dinner. O2 sats are 95% on 2L NC (patient wears no O2 at baseline). RR upper 20s-low 30s. She states she got upset and my breathing got worse. I shouldn't let myself get upset like that. Neb ordered- to give. HR NSR/ST 90s-1teens with exertion. patient is alert, oriented x4. she currently denies pain, just endorses labored breathing. lung sounds are coarse and wheezy.
[2022-08-10] MEDS: 0.9 % Sodium Chloride Flush 3 ML SYRINGE IVFLUSH (23:13)
[2022-08-11] VITALS (7 sets, daily range): BP systolic 127–148; BP diastolic 63–89; PULSE 90–109; RESP 17–33; TEMP 37.1; O2SAT 94–97
--- NOTE | 2022-08-11 01:05 | PC.NURSE ---
PT AMBULATED OUT OF BED TO USE BEDSIDE COMMODE. PT GIVEN HOSPITAL MESH UNDERWEAR WITH A PAD AND HELPED BACK INTO BED AFTER USING THE COMMODE.WARM BLANKET GIVEN .
--- NOTE | 2022-08-11 06:31 | PC.NURSE ---
PT AMBULATED OUT OF BED TO USE BEDSIDE COMMODE . PT GIVEN PERICARE AND NEW MESH UNDERWEAR AND PAD. PT AMBULATED BACK TO BED AND WARM BLANKET GIVEN
[2022-08-11 06:51] LABS: Hematocrit 33.3 % (37.0-47.0); Hemoglobin 10.5 g/dl (12.0-16.0); Mean Corpuscular HGB Conc 31.5 g/dl (31.0-35.0); Mean Corpuscular Hemoglobin 28.9 pg (27.0-33.0); Mean Corpuscular Volume 91.7 fL (80.0-98.0); Mean Platelet Volume 10.6 fL (9.4-12.3); Platelet Count 348 X10*3/uL (160-400); Red Blood Count 3.63 X10*6/uL (4.20-5.50); Red Cell Distribution Width 14.9 % (11.0-16.0); White Blood Count 15.9 X10*3/uL (4.8-10.8)
[2022-08-11 06:56] LABS: Anion Gap 18 (12-20); Blood Urea Nitrogen 21 mg/dL (9-16); Calcium 8.9 mg/dL (8.4-10.2); Carbon Dioxide 21 mmol/L (22-29); Chloride 103 mmol/L (96-108); Creatinine Clr Calc Pharmacy 54.1; Estimated Glomerular Filt Rate > 60; Glucose Random 105 mg/dL (60-115); Potassium 4.3 mmol/L (3.3-5.1); Sodium 138 mmol/L (135-145)
--- NOTE | 2022-08-11 09:02 | PM.CNPUL ---
History of Present Illness History of Present Illness Consult date: 08/11/22 Chief complaint: Dyspnea Narrative: This is an inpatient pulmonary consultation. 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 The patient reports that she was diagnosed with COVID almost 1 month ago and never recovered from it was she has been complaining of worsening dyspnea, feeling unwell and weak.? She was followed today with Dr. Pierce from Oncology who noticed that the patient looks sick and unwell and recommended her to visit the emergency.? She reports that she has decreased oral intake, feeling weak, dyspnea with exercise, dry cough, denies any fever, chills or chest pain.?In the emergency she was placed on oxygen. I personally reviewed the CTA. CT scan of the chest demonstrates a mediastinal mass that extends to the left hemithorax appears to be masslike density concerning for recurrence of her malignancy. The patient may also have airspace disease suggesting of a lower respiratory infection especially there is postobstructive pneumonia. The patient is admitted to the hospital. And will require additional evaluation. Review of Systems Review of Systems: Denies any recent fever chills or decrease in appetite respiratory + shortness of breath +cough cardiovascular denies chest pain gastrointestinal denies any dysphagia abdominal pain nausea vomiting or diarrhea genitourinary denies any dysuria frequency or hematuria musculoskeletal denies any joint pain or swelling Skinn: rashes HEME: no easy brusing or enlarged lymphnodes neuropsych See hPI all other systems reviewed are negative [facility] Past Medical History Medical History (Updated 08/11/22 @ 09:13 by Edison Treadwell MD) Asthma 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 Carotid stenosis, bilateral Cerebrovascular accident, embolic Change in mole COPD (chronic obstructive pulmonary disease) Encounter for general adult medical examination with abnormal findings FH: total knee replacement Hospital discharge follow-up Hypertension Lung mass Obesity Obesity Other and unspecified hyperlipidemia Pneumonia Pulmonary embolism Shortness of Breath Family History Family History Father Cancer Mother Cerebral aneurysm Breast cancer Sister Cancer Surgical History Surgical History History of appendectomy History of cholecystectomy History of hysterectomy History of lobectomy of lung History of total right hip replacement Social History Social History Household Members: Spouse and Children Housing: House Are you a primary pediatric acute care unit nurse to a significant other at home: No Do you presently have visiting nurse or other home services: No Alcohol intake: unknown Patient Tobacco Use Status: Former Tobacco user Quit Date: 10+ years ago Tobacco use type: Cigarette Years Smoked: 50 years e-Cigarette/Vaping Use: Never Used Use of substances other than those prescribed or required for medical reasons: No Advance Directives: Yes Advance Directives Information Provided: Yes Advance Directives on File: No service: No Current occupational status: retired Cognitive needs: No Hearing needs: No Vision needs: Yes Meds Allergies Allergy/AdvReac Type Severity Reaction Status Date / Time Etjegam-VXW-StV Reductase Allergy Mild MENTAL Verified 08/10/22 08:23 Inhibitor CHANGES [[id number] REDUCTASE INHIBITOR] rosuvastatin [Crestor] Allergy Unknown weakness,muscle Verified 08/10/22 08:23 aches Active Medications: Current Medications Acetaminophen (Acetaminophen 325 Mg Tablet) 650 mg PO Q6H PRN PRN Reason: Pain, Mild (Pain Scale 1-3) Albuterol Sulfate (Albuterol Sulfate 90 Mcg 8 Gm Inhaler) 2 puff INHALE Q6H PRN PRN Reason: Wheezing Albuterol/Ipratropium (Albuterol/Iprat 2.5/0.5mg 3 Ml Ampul.Neb) 3 ml INHALE RQ4H WHILE AWAKE [facility] Last Admin: 08/11/22 07:43 Dose: Not Given Albuterol/Ipratropium (Albuterol/Iprat 2.5/0.5mg 3 Ml Ampul.Neb) 3 ml INHALE RQ4H PRN PRN Reason: Shortness of Breath Ascorbic Acid (Ascorbic Acid 500 Mg Tablet) 500 mg PO DAILY [facility] Last Admin: 08/10/22 15:14 Dose: Not Given Aspirin (Aspirin Enteric Coated 81 Mg Tablet.) 81 mg PO DAILY [facility] Last Admin: 08/10/22 15:14 Dose: Not Given Enoxaparin Sodium (Enoxaparin Sodium 40 Mg/0.4 Ml Syringe) 40 mg SUBCUT Q24H [facility] Last Admin: 08/10/22 15:33 Dose: 40 mg Fluticasone/Vilanterol (Fluticasone/Vilanterol 200/25 Blst.W.Dev) 1 puff INHALE RDAILY [facility] Last Admin: 08/11/22 07:43 Dose: Not Given Azithromycin 500 mg/ Sodium (Chloride) 250 mls @ 125 mls/hr IV Q24H [facility] Ceftriaxone Sodium 1 gm/ (Sodium Chloride) 50 mls @ 100 mls/hr IV Q24H [facility] Methylprednisolone Sodium Succinate (Methylprednisolone Sod Succ 40 Mg/Ml Vial) 40 mg IVPUSH Q12H [facility] Ondansetron HCl (Ondansetron Hcl 4 Mg/2 Ml Vial) 4 mg IVPUSH Q8H PRN PRN Reason: Nausea and Vomiting Pharmacy Consult (Consult Rx Perform Med Rec) 1 each MISCELLANE ONCE PRN PRN Reason: Consult order Sodium Chloride (0.9 % Sodium Chloride Flush 3 Ml Syringe) 3 ml IVFLUSH QSHIFT [facility] Last Admin: 08/11/22 08:40 Dose: Not Given Vitamin D (Cholecalciferol (Vitamin D3) 25 Mcg Tablet) 25 mcg PO DAILY [facility] Last Admin: 08/10/22 15:14 Dose: Not Given Home Medications Medication Instructions Recorded Confirmed Last Taken Type aspirin 81 mg tablet,delayed 81 mg PO DAILY 09/09/20 08/10/22 08/10/22 History release ascorbate calcium (vitamin C) 500 500 mg PO DAILY 09/16/20 08/10/22 08/10/22 History mg tablet cholecalciferol (vitamin D3) 25 25 mcg PO DAILY 09/16/20 08/10/22 08/10/22 History mcg (1,000 unit) capsule albuterol sulfate 90 mcg/actuation 2 puff inhalation Q6H PRN Wheezing 08/10/22 08/10/22 Unknown History aerosol inhaler Physical Exam Vital Signs: Vital Signs: Last Vital Signs Temp 98.2 F 08/10/22 21:15 Pulse 96 08/11/22 08:17 Resp 24 H 08/11/22 08:17 BP 128/63 08/11/22 08:17 Pulse Ox 96 08/11/22 08:17 O2 Del Method 08/11/22 08:17 O2 Flow Rate 2 08/11/22 08:17 Oxygen Flow Rate 2 08/10/22 23:45 BMI result Body Mass Index 34.7 Const: General: cooperative Orientation/consciousness: patient oriented x3 HEENT: Other: Unremarkable Head: Yes normal to inspection Eyes: General: appearance normal, both eyes and all related structures Neck: Neck: Yes supple Chest: Chest palpation & inspection: normal inspection of the chest Resp: Auscultation: no crackles, rhonchi, no wheezes and diminished lung sounds (coarse) Cardio: Jugular venous distension: no JVD Palpation: normal PMI Heart sounds: S1 normal heart sound present, S2 normal heart sound present, no gallops, Murmur heart sound present (1/6 LISA aortic area) and no rubs GI: Palpation (GI): Soft to palpation Back/Spine/Pelvis: Other: unremarkable Skin: General skin exam: no rashes or lesions noted Neuro: General: patient oriented x3 Extrem: Other: 1+ edema; L>R. Psych: Mental Status: mental status grossly normal Results Laboratory Findings CBC and BMP: 08/11/22 06:33 08/11/22 06:33 Abnormal lab findings: Abnormal Labs 08/10/22 08/10/22 08/10/22 10:06 10:06 10:06 WBC 15.1 H RBC 3.91 L Hgb 11.5 L Hct 35.5 L Plt Count 415 H D Immature Gran % (Auto) 0.7 H Neut % (Auto) 80.5 H Lymph % (Auto) 11.7 L Abs Immat Gran (auto) 0.10 H Absolute Neuts (auto) 12.1 H Carbon Dioxide BUN 22 H Random Glucose 120 H Lactic Acid 3.7 H* Lactic Acid F/U @ 2Hr Lactic Acid F/U @ 4Hr AST 62 H ALT 58 H Alkaline Phosphatase 230 H D Total Protein 5.7 L Albumin 2.9 L D SARS-CoV-2 RNA (RT-PCR) 08/10/22 08/10/22 08/10/22 10:07 12:20 14:39 WBC RBC Hgb Hct Plt Count Immature Gran % (Auto) Neut % (Auto) Lymph % (Auto) Abs Immat Gran (auto) Absolute Neuts (auto) Carbon Dioxide BUN Random Glucose Lactic Acid Lactic Acid F/U @ 2Hr 2.3 H* Lactic Acid F/U @ 4Hr 3.2 H* AST ALT Alkaline Phosphatase Total Protein Albumin SARS-CoV-2 RNA (RT-PCR) POSITIVE A 08/11/22 08/11/22 06:33 06:33 WBC 15.9 H RBC 3.63 L Hgb 10.5 L Hct 33.3 L Plt Count Immature Gran % (Auto) Neut % (Auto) Lymph % (Auto) Abs Immat Gran (auto) Absolute Neuts (auto) Carbon Dioxide 21 L BUN 21 H Random Glucose Lactic Acid Lactic Acid F/U @ 2Hr Lactic Acid F/U @ 4Hr AST ALT Alkaline Phosphatase Total Protein Albumin SARS-CoV-2 RNA (RT-PCR) Assessment and Plan (1) Lung mass: Status: Acute (2) Pneumonia: Status: Acute (3) History of pulmonary embolism: Status: Acute (4) Acute respiratory failure: Status: Acute (5) COPD (chronic obstructive pulmonary disease): Status: Acute Plan The patient is presenting with recurrence of what appears to be an aggressive type of primary lung cancer. She has squamous cell carcinoma resected back in February. This likely to be the same process. The patient also has some hypodense areas in the liver suggesting metastatic disease. The patient also may have a component of tumor emboli that could be resulting worsening shortness of breath hypoxia and also some degree of postobstructive pneumonia. Recommendations: continue solumedrol continue antibiotics would recommend Oncology imput regarding the liver lesions. I would recommend a ct guided biopsy for both staging and dx. Consider bronchosopcy if additonal tissue required, but I do believe with a age and comorbidities it may be higher risk continue oxygen supplementation to keep pox>92% Procedures Date of Service Date of Service: 08/11/22
[2022-08-11] MEDS: Ascorbic Acid 500 MG TABLET PO (09:09)
[2022-08-11] MEDS: Aspirin Enteric Coated 81 MG TABLET.DR PO (09:09)
[2022-08-11] MEDS: Cholecalciferol (Vitamin D3) 25 MCG TABLET PO (09:09)
[2022-08-11] MEDS: methylPREDNISolone Sod Succ 40 MG/ML VIAL IVPUSH ×2 (09:09→19:57)
[2022-08-11] MEDS: cefTRIAXone sodium 1 GM in 0.9 % Sodium Chloride 50 ML IV (09:10)
[2022-08-11] MEDS: Albuterol/Iprat 2.5/0.5MG 3 ML AMPUL.NEB INHALE ×3 (11:13→19:46)
--- NOTE | 2022-08-11 11:57 | PC.NURSE ---
PT CHANGED AND REPOSITIONED, PLACED IN HOSPITAL BED. TOLERATED BREAKFAST ABLE TO SIT ON SIDE OF BED TO EAT BREAKFAST.
--- NOTE | 2022-08-11 12:14 | P.PNIM_ITS ---
Subjective Subjective Date of Service: 08/11/22 Interval History: cc: sob interval history:ongoing sob Cardiovascular Cardiovascular: Reports no additional cardiovascular complaints Respiratory Respiratory: Reports no additional respiratory complaints Physical Exam Vital Signs: Vital Signs: Last Vital Signs Temp 98.2 F 08/10/22 21:15 Pulse 90 08/11/22 11:13 Resp 24 H 08/11/22 11:13 BP 128/63 08/11/22 08:17 Pulse Ox 96 08/11/22 08:17 O2 Del Method 08/11/22 08:17 O2 Flow Rate 2 08/11/22 08:17 Oxygen Flow Rate 2 08/10/22 23:45 BMI result Body Mass Index 34.7 General: AO X 3, in acute distress Resp: Crackles bilateral, accessory muscles used CVS: S1,S2,RRR GI: soft, non tender, non distended Neuro: motor grossly intact, alert Psych: appropriate affect, appropriate insight Objective Data Active Medications Acetaminophen (Acetaminophen 325 Mg Tablet) 650 mg PO Q6H PRN PRN Reason: Pain, Mild (Pain Scale 1-3) Albuterol Sulfate (Albuterol Sulfate 90 Mcg 8 Gm Inhaler) 2 puff INHALE Q6H PRN PRN Reason: Wheezing Albuterol/Ipratropium (Albuterol/Iprat 2.5/0.5mg 3 Ml Ampul.Neb) 3 ml INHALE RQ4H WHILE AWAKE [facility] Last Admin: 08/11/22 11:13 Dose: 3 ml Documented By: HUSAM Albuterol/Ipratropium (Albuterol/Iprat 2.5/0.5mg 3 Ml Ampul.Neb) 3 ml INHALE RQ4H PRN PRN Reason: Shortness of Breath Ascorbic Acid (Ascorbic Acid 500 Mg Tablet) 500 mg PO DAILY [facility] Last Admin: 08/11/22 09:09 Dose: 500 mg Documented By: ORLY Aspirin (Aspirin Enteric Coated 81 Mg Tablet.) 81 mg PO DAILY [facility] [place] Last Admin: 08/11/22 09:09 Dose: 81 mg Documented By: ORLY Enoxaparin Sodium (Enoxaparin Sodium 40 Mg/0.4 Ml Syringe) 40 mg SUBCUT Q24H [facility] [place] Last Admin: 08/10/22 15:33 Dose: 40 mg Documented By: [email or web address] Fluticasone/Vilanterol (Fluticasone/Vilanterol 200/25 Blst.W.Dev) 1 puff INHALE RDAILY [facility] [place] Last Admin: 08/11/22 07:43 Dose: Not Given Documented By: HUSAM Non-Admin Reason: Patient Refused Azithromycin 500 mg/ Sodium (Chloride) 250 mls @ 125 mls/hr IV Q24H [facility] [place] Ceftriaxone Sodium 1 gm/ (Sodium Chloride) 50 mls @ 100 mls/hr IV Q24H [facility] Last Admin: 08/11/22 09:10 Dose: 100 mls/hr Documented By: ORLY Methylprednisolone Sodium Succinate (Methylprednisolone Sod Succ 40 Mg/Ml Vial) 40 mg IVPUSH Q12H [facility] [place] Last Admin: 08/11/22 09:09 Dose: 40 mg Documented By: ORLY Ondansetron HCl (Ondansetron Hcl 4 Mg/2 Ml Vial) 4 mg IVPUSH Q8H PRN PRN Reason: Nausea and Vomiting Pharmacy Consult (Consult Rx Perform Med Rec) 1 each MISCELLANE ONCE PRN PRN Reason: Consult order Sodium Chloride (0.9 % Sodium Chloride Flush 3 Ml Syringe) 3 ml IVFLUSH QSHIFT [facility] [place] Last Admin: 08/11/22 08:40 Dose: Not Given Documented By: ORLY Non-Admin Reason: IV Running Vitamin D (Cholecalciferol (Vitamin D3) 25 Mcg Tablet) 25 mcg PO DAILY [facility] [place] Last Admin: 08/11/22 09:09 Dose: 25 mcg Documented By: ORLY Labs CBC & Chem 7: 08/11/22 06:33 08/11/22 06:33 Labs: Laboratory Results - last 24 hr 08/10/22 08/10/22 08/11/22 12:20 14:39 06:33 MCV 91.7 MCH 28.9 MCHC 31.5 RDW 14.9 Plt Count 348 MPV 10.6 Absolute Nucleated RBC 0.000 Nucleated RBC % (auto) 0.0 Anion Gap Estim Creat Clear Calc Estimated GFR Random Glucose Lactic Acid F/U @ 2Hr 2.3 H* Lactic Acid F/U @ 4Hr 3.2 H* Calcium 08/11/22 06:33 MCV MCH MCHC RDW Plt Count MPV Absolute Nucleated RBC Nucleated RBC % (auto) Anion Gap 18 Estim Creat Clear Calc 54.1 Estimated GFR > 60 Random Glucose 105 Lactic Acid F/U @ 2Hr Lactic Acid F/U @ 4Hr Calcium 8.9 Microbiology Microbiology Results: Microbiology 08/10/22 10:06 Blood Culture - Preliminary Blood - Venous No growth after 24 hours. 08/10/22 10:06 Blood Culture - Preliminary Blood - Venous No growth after 24 hours. 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
[2022-08-11] MEDS: Azithromycin 500 MG in 0.9 % Sodium Chloride 250 ML 125 MG IV (14:01)
[2022-08-11] MEDS: Enoxaparin Sodium 40 MG/0.4 ML SYRINGE SUBCUT (15:05)
[2022-08-11] MEDS: 0.9 % Sodium Chloride Flush 3 ML SYRINGE IVFLUSH ×2 (15:06→19:57)
--- NOTE | 2022-08-11 19:50 | P.CNHO_ITS ---
Subjective - Subjective Chief complaint: Consult for: 1. Lung mass, 2. Liver lesions. Patient: new to practice Consult date: 08/11/22 Requesting Physician: Era. Primary Care Provider: Roxana Fairchild MD Medical Summary: DIAGNOSIS: LUNG MASS. LIVER LESIONS. HPI - Consult Narrative Reason for consult: CONSULT FOR: LUNG MASS. LIVER LESIONS. Narrative: Dai Cook is a pleasant 86 year old lady, admitted for SOB. H/O SCC lung CA, DJD, HTN, COPD among others who presented to the hospital as a referral from oncology office for worsening dyspnea and shortness of breath. The patient reports that she was diagnosed with COVID almost 1 month ago and never recovered from it was she has been complaining of worsening dyspnea, feeling unwell and weak. She was followed today with Dr. Pierce from Oncology who noticed that the patient looks sick and unwell and recommended her to visit the emergency. She reports that she has decreased oral intake, feeling weak, dyspnea with exercise, dry cough, denies any fever, chills or chest pain. In the emergency a CT scan of the chest was consistent with left lobe infiltrate and likely mass. CT abdomen concerning for possible metastasis to liver. 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 Carotid stenosis, bilateral Cerebrovascular accident, embolic Change in mole Encounter for general adult medical examination with abnormal findings FH: total knee replacement Hospital discharge follow-up Hypertension Obesity Obesity Other and unspecified hyperlipidemia Pulmonary embolism Shortness of Breath Family History: Father Cancer Mother Cerebral aneurysm Breast cancer Sister Cancer Review of Systems: no fever, chills but reports generalized weakness No chest pain, palpitation Dyspnea with exertion and dry coughing No abdominal pain, nausea or vomiting No urinary symptoms No any rash or wounds Review of Systems - Constitutional Reports system reviewed and no additional complaints, except as documented, Reports lack of energy, Reports malaise, Reports poor appetite, Reports weakness - Eyes Reports system reviewed and no additional complaints, except as documented, Denies blurry vision - ENT Reports system reviewed and no additional complaints, except as documented, Denies mouth lesions - Cardiovascular Reports system reviewed and no additional complaints, except as documented, Reports chest pain with activity, Reports shortness of breath - Respiratory Reports no additional respiratory complaints, Reports chest congestion - Gastrointestinal Reports system reviewed and no additional complaints, except as documented, Denies abdominal pain, Denies black, tarry stools, Denies vomiting - Genitourinary Reports no additional female genitourinary complaints, Denies abnormal vaginal bleeding - Musculoskeletal Reports system reviewed and no additional complaints, except as documented, Denies abnormal walking - Integumentary/Breasts Skin/Breast: Reports no additional skin complaints - Neurologic Denies dizziness, Denies loss of vision, Denies numbness, Denies tingling - Psychiatric Reports system reviewed and no additional complaints, except as documented, Denies behavioral changes - Endocrine Reports no additional endocrine complaints, Denies flushing - Hematologic/Lymphatic Reports system reviewed and no additional complaints, except as documented, Denies easy bleeding - Allergic/Immunologic Reports system reviewed and no additional complaints, except as documented, Denies GI upset with certain foods Oncology Screenings - ECOG Performance Status ECOG Performance Status: 2 PMFSH Medical History: Medical History (Last Updated 08/11/22 @ 09:13 by Edison Treadwell MD) Asthma 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 Carotid stenosis, bilateral Cerebrovascular accident, embolic Change in mole COPD (chronic obstructive pulmonary disease) Encounter for general adult medical examination with abnormal findings FH: total knee replacement Hospital discharge follow-up Hypertension Lung mass Obesity Obesity Other and unspecified hyperlipidemia Pneumonia Pulmonary embolism Shortness of Breath Functional capacity: bed bound Patient : No Family History: Family History (Last Reviewed 08/10/22 @ 15:15 by Markie Loyola MD) Father Cancer Mother Cerebral aneurysm Breast cancer Sister Cancer Surgical History: Surgical History (Last Reviewed 08/10/22 @ 15:15 by Markie Loyola MD) History of appendectomy History of cholecystectomy History of hysterectomy History of lobectomy of lung History of total right hip replacement Social History: Social History (Last Reviewed 08/10/22 @ 15:15 by Markie Loyola MD) Living Situation History: Household Members: Spouse Household Members: Children Household Members Other:: 2 grandchildren Housing: House Are you a primary healthcare business analyst to a significant other at home: No Do you presently have visiting nurse or other home services: No Tobacco History: Patient Tobacco Use Status: Former Tobacco user Tobacco use type: Cigarette Years Smoked: 50 years Smoke Quit Date: 10+ years ago e-Cigarette/Vaping Use: Never Used Occupation Assessmet: service: No Current occupational status: retired Home Medications and Allergies Current Medications: Current Medications Acetaminophen (Acetaminophen 325 Mg Tablet) 650 mg PO Q6H PRN PRN Reason: Pain, Mild (Pain Scale 1-3) Albuterol Sulfate (Albuterol Sulfate 90 Mcg 8 Gm Inhaler) 2 puff INHALE Q6H PRN PRN Reason: Wheezing Albuterol/Ipratropium (Albuterol/Iprat 2.5/0.5mg 3 Ml Ampul.Neb) 3 ml INHALE RQ4H WHILE AWAKE [facility] Last Admin: 08/11/22 19:46 Dose: 3 ml Albuterol/Ipratropium (Albuterol/Iprat 2.5/0.5mg 3 Ml Ampul.Neb) 3 ml INHALE RQ4H PRN PRN Reason: Shortness of Breath Ascorbic Acid (Ascorbic Acid 500 Mg Tablet) 500 mg PO DAILY [facility] Last Admin: 08/11/22 09:09 Dose: 500 mg Aspirin (Aspirin Enteric Coated 81 Mg Tablet.Dr) 81 mg PO DAILY [facility] Last Admin: 08/11/22 09:09 Dose: 81 mg Enoxaparin Sodium (Enoxaparin Sodium 40 Mg/0.4 Ml Syringe) 40 mg SUBCUT Q24H [facility] Last Admin: 08/11/22 15:05 Dose: 40 mg Fluticasone/Vilanterol (Fluticasone/Vilanterol 200/25 Blst.W.Dev) 1 puff INHALE RDAILY [facility] Last Admin: 08/11/22 07:43 Dose: Not Given Azithromycin 500 mg/ Sodium (Chloride) 250 mls @ 125 mls/hr IV Q24H [facility] Last Infusion: 08/11/22 16:08 Dose: Infused Ceftriaxone Sodium 1 gm/ (Sodium Chloride) 50 mls @ 100 mls/hr IV Q24H [facility] Last Infusion: 08/11/22 15:06 Dose: Infused Methylprednisolone Sodium Succinate (Methylprednisolone Sod Succ 40 Mg/Ml Vial) 40 mg IVPUSH Q12H [facility] Last Admin: 08/11/22 09:09 Dose: 40 mg Ondansetron HCl (Ondansetron Hcl 4 Mg/2 Ml Vial) 4 mg IVPUSH Q8H PRN PRN Reason: Nausea and Vomiting Pharmacy Consult (Consult Rx Perform Med Rec) 1 each MISCELLANE ONCE PRN PRN Reason: Consult order Sodium Chloride (0.9 % Sodium Chloride Flush 3 Ml Syringe) 3 ml IVFLUSH QSHIFT [facility] Last Admin: 08/11/22 15:06 Dose: 3 ml Vitamin D (Cholecalciferol (Vitamin D3) 25 Mcg Tablet) 25 mcg PO DAILY [facility] Last Admin: 08/11/22 09:09 Dose: 25 mcg Home Medications Medication Instructions Recorded Confirmed Type aspirin 81 mg tablet,delayed 81 mg PO DAILY 09/09/20 08/10/22 History release ascorbate calcium (vitamin C) 500 500 mg PO DAILY 09/16/20 08/10/22 History mg tablet cholecalciferol (vitamin D3) 25 25 mcg PO DAILY 09/16/20 08/10/22 History mcg (1,000 unit) capsule albuterol sulfate 90 mcg/actuation 2 puff inhalation Q6H PRN Wheezing 08/10/22 08/10/22 History aerosol inhaler Allergies Allergy/AdvReac Type Severity Reaction Status Date / Time [id number] Reductase Allergy Mild MENTAL Verified 08/10/22 08:23 Inhibitor CHANGES [[id number] REDUCTASE INHIBITOR] rosuvastatin [Crestor] Allergy Unknown weakness,muscle Verified 08/10/22 08:23 aches Physical Exam Vital signs: Vital Signs Temp 98.2 F 08/10/22 21:15 Pulse 107 H 08/11/22 14:39 Resp 22 H 08/11/22 14:39 BP 128/63 08/11/22 08:17 Pulse Ox 96 08/11/22 08:17 O2 Del Method 08/11/22 08:17 O2 Flow Rate 2 08/11/22 08:17 Intake & Output 08/11/22 08/11/22 08/12/22 06:59 18:59 06:59 Intake Total 400 / 700 2967 / 2967 Output Total 1000 / 1000 Balance -600 / -300 2967 / 2967 Urine Output (Average ml/kg/hr) 0.94 0.94 Intake: Intake, Oral Amount 400 / 400 Intake, IV Amount 2967 / 2967 0.9 % Sodium Chloride 2,667 ml 2667 / 2667 @ 2667 mls/hr IV .Q1H [facility] Rx#: [id number] Azithromycin 500 mg In 0.9 % 250 / 250 Sodium Chloride 250 ml @ 125 mls/hr IV Q24H [facility] Rx#: [id number] cefTRIAXone sodium 1 gm In 0.9 50 / 50 % Sodium Chloride 50 ml @ 100 mls/hr IV Q24H [facility] Rx#: [id number] Output: Output, Urine Amount 1000 / 1000 Other: Urine Bedside Commode Urine Color Yellow Weight 88.9 kg - Constitutional Present: moderate distress - Routine HEENT Exam Head: Present: normocephalic Eye: Present: PERRL ENT: Present: mucous membranes moist - Routine Neck Exam Present: supple - Routine Respiratory Exam Present: decreased breath sounds, CTAB - Routine Cardiovascular Exam Cardiovascular: Present: RRR, S1, S2 - Routine Abdominal Exam Present: nontender - Routine Extremities Exam Present: normal inspection - Routine Skin Exam Present: intact, normal turgor - Routine Neurological Exam Present: alert, oriented X3 - Detailed Neurological Exam: Coma Scale Eye Opening: Spontaneous (4) Verbal Response: Oriented (5) Motor Response: Obeys commands (6) Yelena Coma Scale Total: 15 - Routine Psychiatric Exam Present: normal mood Hem/Onc Consult Result - Labs CBC & Chem 7: 08/17/22 06:08 08/17/22 06:08 Labs: Short CBC 08/11/22 Range/Units 06:33 WBC 15.9 H (4.8-10.8) X10*3/uL Hgb 10.5 L (12.0-16.0) g/dl Hct 33.3 L (37.0-47.0) % Plt Count 348 (160-400) X10*3/uL BMP 08/11/22 06:33 Sodium 138 Potassium 4.3 Chloride 103 Carbon Dioxide 21 L BUN 21 H Creatinine 0.79 Calcium 8.9 Assessment and Plan Patient Active problem list reviewed?: Yes (1) Lung mass Status: Acute Assessment and plan: 86 year old lady, admitted with Covid Pneumonia. CAT Scan revealed large confluent MICKIE mass, and mediastinal adenopathy. Multiple Hypodense Liver Lesions. Incidentally noted to have a lung Mass and Liver Lesions. PLAN: Would recommend biopsy of one of the liver lesions, once she is stable. This was done on 08/18. 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 The patient will be followed up as an outpatient, to discuss chemotherapy option. Thanks for the consult, Will follow along with you, cc: Dr. Fairchild. - Time Spent With Patient Time Spent with Patient (in minutes): 30
[2022-08-12] VITALS (11 sets, daily range): BP systolic 138–169; BP diastolic 66–83; PULSE 90–109; RESP 18–20; TEMP 36.3–37.1; O2SAT 94–98
[2022-08-12 07:15] LABS: Hematocrit 33.7 % (37.0-47.0); Hemoglobin 10.6 g/dl (12.0-16.0); Mean Corpuscular HGB Conc 31.5 g/dl (31.0-35.0); Mean Corpuscular Hemoglobin 29.1 pg (27.0-33.0); Mean Corpuscular Volume 92.6 fL (80.0-98.0); Mean Platelet Volume 9.6 fL (9.4-12.3); Platelet Count 469 X10*3/uL (160-400); Red Blood Count 3.64 X10*6/uL (4.20-5.50); White Blood Count 15.8 X10*3/uL (4.8-10.8)
[2022-08-12 07:32] LABS: Anion Gap 18 (12-20); Blood Urea Nitrogen 22 mg/dL (9-16); Calcium 8.8 mg/dL (8.4-10.2); Carbon Dioxide 23 mmol/L (22-29); Chloride 105 mmol/L (96-108); Creatinine Clr Calc Pharmacy 51.4; Estimated Glomerular Filt Rate > 60; Glucose Fasting 117 mg/dL (60-99); Sodium 141 mmol/L (135-145)
[2022-08-12] MEDS: Aspirin Enteric Coated 81 MG TABLET.DR PO (08:21)
[2022-08-12] MEDS: 0.9 % Sodium Chloride Flush 3 ML SYRINGE IVFLUSH ×3 (08:21→20:31)
[2022-08-12] MEDS: Cholecalciferol (Vitamin D3) 25 MCG TABLET PO (08:21)
[2022-08-12] MEDS: methylPREDNISolone Sod Succ 40 MG/ML VIAL IVPUSH ×2 (08:21→20:30)
[2022-08-12] MEDS: Ascorbic Acid 500 MG TABLET PO (08:21)
[2022-08-12] MEDS: Fluticasone/Vilanterol 200/25 BLST.W.DEV 1 PUFF INHALE (08:41)
[2022-08-12] MEDS: Albuterol/Iprat 2.5/0.5MG 3 ML AMPUL.NEB INHALE ×4 (08:41→19:49)
--- NOTE | 2022-08-12 09:55 | MHC.CM.PN ---
IMM DELIVERED PT LIVES IN SINGLE FAMILY HOME WITH SPOUSE, ADULT SON AND 3 GRANDCHILDREN. NO SERVICES OR DME USED AT HOME. HCP IS SOMEWHERE AT HOME BUT WILLING TO DO A NEW ONE. COVID VAX X [address] SOLER AT [facility] [place]. PT OPEN TO HOME SERVICES IF RECOMMENDED. REFERRAL SENT TO [facility] PER PREFERENCE. SPOUSE WILL TRANSPORT HOME ON DC.
--- NOTE | 2022-08-12 10:24 | HO.PM.IMPN ---
Subjective Subjective Date of Service: 08/12/22 Interval History: cc: sob interval history:ongoing sob Cardiovascular Cardiovascular: Reports no additional cardiovascular complaints Respiratory Respiratory: Reports no additional respiratory complaints Physical Exam Vital Signs: Vital Signs: Last Vital Signs Temp 97.4 F 08/12/22 04:00 Pulse 91 08/12/22 08:44 Resp 20 08/12/22 08:44 BP 143/74 H 08/12/22 07:52 Pulse Ox 97 08/12/22 07:52 O2 Del Method 08/12/22 07:52 O2 Flow Rate 3 08/12/22 07:52 Oxygen Flow Rate 2 08/10/22 23:45 BMI result Body Mass Index 34.7 General: AO X 3, in acute distress Resp: Crackles bilateral, accessory muscles used CVS: S1,S2,RRR GI: soft, non tender, non distended Neuro: motor grossly intact, alert Psych: appropriate affect, appropriate insight Objective Data Active Medications Acetaminophen (Acetaminophen 325 Mg Tablet) 650 mg PO Q6H PRN PRN Reason: Pain, Mild (Pain Scale 1-3) Albuterol Sulfate (Albuterol Sulfate 90 Mcg 8 Gm Inhaler) 2 puff INHALE Q6H PRN PRN Reason: Wheezing Albuterol/Ipratropium (Albuterol/Iprat 2.5/0.5mg 3 Ml Ampul.Neb) 3 ml INHALE RQ4H [facility] Last Admin: 08/12/22 08:41 Dose: 3 ml Documented By: CRYSTAL Albuterol/Ipratropium (Albuterol/Iprat 2.5/0.5mg 3 Ml Ampul.Neb) 3 ml INHALE RQ4H PRN PRN Reason: Shortness of Breath Ascorbic Acid (Ascorbic Acid 500 Mg Tablet) 500 mg PO DAILY [facility] Last Admin: 08/12/22 08:21 Dose: 500 mg Documented By: KALE Aspirin (Aspirin Enteric Coated 81 Mg Tablet.) 81 mg PO DAILY [facility] Last Admin: 08/12/22 08:21 Dose: 81 mg Documented By: KALE Enoxaparin Sodium (Enoxaparin Sodium 40 Mg/0.4 Ml Syringe) 40 mg SUBCUT Q24H [facility] Last Admin: 08/11/22 15:05 Dose: 40 mg Documented By: HO.COUSIB Fluticasone/Vilanterol (Fluticasone/Vilanterol 200/25 Blst.W.Dev) 1 puff INHALE RDAILY [facility] Last Admin: 08/12/22 08:41 Dose: 1 puff Documented By: CRYSTAL Azithromycin 500 mg/ Sodium (Chloride) 250 mls @ 125 mls/hr IV Q24H [facility] Last Infusion: 08/11/22 16:08 Dose: 0 mls/hr Documented By: SALVADOR Ceftriaxone Sodium 1 gm/ (Sodium Chloride) 50 mls @ 100 mls/hr IV Q24H [facility] Last Infusion: 08/11/22 15:06 Dose: 0 mls/hr Documented By: SALVADOR Methylprednisolone Sodium Succinate (Methylprednisolone Sod Succ 40 Mg/Ml Vial) 40 mg IVPUSH Q12H [facility] Last Admin: 08/12/22 08:21 Dose: 40 mg Documented By: KALE Ondansetron HCl (Ondansetron Hcl 4 Mg/2 Ml Vial) 4 mg IVPUSH Q8H PRN PRN Reason: Nausea and Vomiting Pharmacy Consult (Consult Rx Perform Med Rec) 1 each MISCELLANE ONCE PRN PRN Reason: Consult order Sodium Chloride (0.9 % Sodium Chloride Flush 3 Ml Syringe) 3 ml IVFLUSH QSHIFT [facility] Last Admin: 08/12/22 08:21 Dose: 3 ml Documented By: KALE Vitamin D (Cholecalciferol (Vitamin D3) 25 Mcg Tablet) 25 mcg PO DAILY [facility] Last Admin: 08/12/22 08:21 Dose: 25 mcg Documented By: KALE Labs CBC & Chem 7: 08/12/22 06:23 08/12/22 06:23 Labs: Laboratory Results - last 24 hr 08/12/22 08/12/22 06:23 06:23 MCV 92.6 MCH 29.1 MCHC 31.5 RDW 15.0 Plt Count 469 H D MPV 9.6 Absolute Nucleated RBC 0.000 Nucleated RBC % (auto) 0.0 Anion Gap 18 Estim Creat Clear Calc 51.4 Estimated GFR > 60 Fasting Glucose 117 H Calcium 8.8 Microbiology Microbiology Results: Microbiology 08/10/22 10:06 Blood Culture - Preliminary Blood - Venous No growth after 24 hours. 08/10/22 10:06 Blood Culture - Preliminary Blood - Venous No growth after 24 hours. 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 with postobstructive pneumonia and decompensation of COPD continue Ceftriaxone, azithromycin, steroids and bronchodilators, wean O2 as tolerated covid positive likely from previous infection Recurrence of squamous cell carcinoma with possible liver Mets Oncology appreciated, will pursue liver lesion biopsy when resp status improved DVT prophylaxis with Lovenox Full code reason for continued hospitalization:still hypoxic and short of breath Quality Stroke Does the patient have a stroke diagnosis?: No VTE Prior VTE?: No VTE Risk Level:: Medical - moderate - high VTE Device Contraindication: Treatment Not Indicated VTE Drug Contraindication: N/A - Med Ordered
[2022-08-12] MEDS: cefTRIAXone sodium 1 GM in 0.9 % Sodium Chloride 50 ML IV (12:30)
[2022-08-12] MEDS: Azithromycin 500 MG in 0.9 % Sodium Chloride 250 ML 125 MG IV (13:11)
[2022-08-12] MEDS: Enoxaparin Sodium 40 MG/0.4 ML SYRINGE SUBCUT (15:28)
[2022-08-13] VITALS (10 sets, daily range): BP systolic 126–148; BP diastolic 62–71; PULSE 95–112; RESP 17–28; TEMP 36.4–37.1; O2SAT 92–96
[2022-08-13] MEDS: Albuterol/Iprat 2.5/0.5MG 3 ML AMPUL.NEB INHALE ×4 (05:43→19:03)
[2022-08-13 07:59] LABS: Hematocrit 33.3 % (37.0-47.0); Mean Corpuscular Hemoglobin 30.3 pg (27.0-33.0); Mean Corpuscular Volume 91.7 fL (80.0-98.0); Mean Platelet Volume 9.5 fL (9.4-12.3); Platelet Count 501 X10*3/uL (160-400); Red Blood Count 3.63 X10*6/uL (4.20-5.50); Red Cell Distribution Width 15.4 % (11.0-16.0); White Blood Count 17.4 X10*3/uL (4.8-10.8)
[2022-08-13 08:07] LABS: Anion Gap 18 (12-20); Blood Urea Nitrogen 26 mg/dL (9-16); Carbon Dioxide 22 mmol/L (22-29); Chloride 104 mmol/L (96-108); Creatinine Clr Calc Pharmacy 54.1; Estimated Glomerular Filt Rate > 60; Glucose Fasting 120 mg/dL (60-99); Potassium 4.5 mmol/L (3.3-5.1); Sodium 139 mmol/L (135-145)
[2022-08-13] MEDS: Fluticasone/Vilanterol 200/25 BLST.W.DEV 1 PUFF INHALE (08:33)
[2022-08-13] MEDS: 0.9 % Sodium Chloride Flush 3 ML SYRINGE IVFLUSH ×3 (08:54→20:25)
[2022-08-13] MEDS: methylPREDNISolone Sod Succ 40 MG/ML VIAL IVPUSH ×2 (08:54→20:22)
[2022-08-13] MEDS: Cholecalciferol (Vitamin D3) 25 MCG TABLET PO (08:54)
[2022-08-13] MEDS: Aspirin Enteric Coated 81 MG TABLET.DR PO (08:54)
[2022-08-13] MEDS: Ascorbic Acid 500 MG TABLET PO (08:55)
[2022-08-13] MEDS: Acetaminophen 325 MG TABLET 650 MG PO ×2 (09:13→20:24)
--- NOTE | 2022-08-13 09:16 | P.PNIM_ITS ---
Subjective Subjective Date of Service: 08/13/22 Interval History: cc: sob interval history:ongoing sob Cardiovascular Cardiovascular: Reports no additional cardiovascular complaints Respiratory Respiratory: Reports no additional respiratory complaints Physical Exam Vital Signs: Vital Signs: Last Vital Signs Temp 98.4 F 08/13/22 07:40 Pulse 102 H 08/13/22 08:37 Resp 20 08/13/22 08:37 BP 132/71 08/13/22 07:40 Pulse Ox 94 08/13/22 07:40 O2 Del Method 08/13/22 04:00 O2 Flow Rate 1 08/12/22 11:43 Oxygen Flow Rate 2 08/10/22 23:45 BMI result Body Mass Index 34.7 General: AO X 3, in acute distress Resp: Crackles bilateral, accessory muscles used CVS: S1,S2,RRR GI: soft, non tender, non distended Neuro: motor grossly intact, alert Psych: appropriate affect, appropriate insight Objective Data Active Medications Acetaminophen (Acetaminophen 325 Mg Tablet) 650 mg PO Q6H PRN PRN Reason: Pain, Mild (Pain Scale 1-3) Last Admin: 08/13/22 09:13 Dose: 650 mg Documented By: KALE Albuterol Sulfate (Albuterol Sulfate 90 Mcg 8 Gm Inhaler) 2 puff INHALE Q6H PRN PRN Reason: Wheezing Albuterol/Ipratropium (Albuterol/Iprat 2.5/0.5mg 3 Ml Ampul.Neb) 3 ml INHALE R Q4H WHILE AWAKE [facility] Last Admin: 08/13/22 08:23 Dose: 3 ml Documented By: FREYA Albuterol/Ipratropium (Albuterol/Iprat 2.5/0.5mg 3 Ml Ampul.Neb) 3 ml INHALE RQ4H PRN PRN Reason: Shortness of Breath Last Admin: 08/13/22 05:43 Dose: 3 ml Documented By: ZARA Ascorbic Acid (Ascorbic Acid 500 Mg Tablet) 500 mg PO DAILY [facility] Last Admin: 08/13/22 08:55 Dose: 500 mg Documented By: KALE Aspirin (Aspirin Enteric Coated 81 Mg Tablet.) 81 mg PO DAILY [facility] Last Admin: 08/13/22 08:54 Dose: 81 mg Documented By: KALE Enoxaparin Sodium (Enoxaparin Sodium 40 Mg/0.4 Ml Syringe) 40 mg SUBCUT Q24H [facility] Last Admin: 08/12/22 15:28 Dose: 40 mg Documented By: ALESSANDRA Fluticasone/Vilanterol (Fluticasone/Vilanterol 200/25 Blst.W.Dev) 1 puff INHALE RDAILY [facility] Last Admin: 08/13/22 08:33 Dose: 1 puff Documented By: SCOVILKatty Azithromycin 500 mg/ Sodium (Chloride) 250 mls @ 125 mls/hr IV Q24H [facility] Last Infusion: 08/12/22 15:31 Dose: 0 mls/hr Documented By: ALESSANDRA Ceftriaxone Sodium 1 gm/ (Sodium Chloride) 50 mls @ 100 mls/hr IV Q24H [facility] Last Infusion: 08/12/22 13:10 Dose: 0 mls/hr Documented By: KALE Methylprednisolone Sodium Succinate (Methylprednisolone Sod Succ 40 Mg/Ml Vial) 40 mg IVPUSH Q12H [facility] Last Admin: 08/13/22 08:54 Dose: 40 mg Documented By: KALE Ondansetron HCl (Ondansetron Hcl 4 Mg/2 Ml Vial) 4 mg IVPUSH Q8H PRN PRN Reason: Nausea and Vomiting Pharmacy Consult (Consult Rx Perform Med Rec) 1 each MISCELLANE ONCE PRN PRN Reason: Consult order Sodium Chloride (0.9 % Sodium Chloride Flush 3 Ml Syringe) 3 ml IVFLUSH QSHIFT [facility] Last Admin: 08/13/22 08:54 Dose: 3 ml Documented By: KALE Vitamin D (Cholecalciferol (Vitamin D3) 25 Mcg Tablet) 25 mcg PO DAILY [facility] Last Admin: 08/13/22 08:54 Dose: 25 mcg Documented By: KALE Labs CBC & Chem 7: 08/13/22 07:25 08/13/22 07:25 Labs: Laboratory Results - last 24 hr 08/13/22 08/13/22 07:25 07:25 MCV 91.7 MCH 30.3 MCHC 33.0 RDW 15.4 Plt Count 501 H MPV 9.5 Absolute Nucleated RBC 0.000 Nucleated RBC % (auto) 0.0 Anion Gap 18 Estim Creat Clear Calc 54.1 Estimated GFR > 60 Fasting Glucose 120 H Calcium 9.0 Microbiology Microbiology Results: Microbiology 08/10/22 10:06 Blood Culture - Preliminary Blood - Venous No growth after 48 hours. 08/10/22 10:06 Blood Culture - Preliminary Blood - Venous No growth after 48 hours. 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 with postobstructive pneumonia and decompensation of COPD continue Ceftriaxone, azithromycin, steroids and bronchodilators, wean O2 as tolerated still very sob covid positive likely from previous infection Recurrence of squamous cell carcinoma with possible liver Mets Oncology appreciated, will pursue liver lesion biopsy when resp status improved DVT prophylaxis with Lovenox Full code reason for continued hospitalization:still hypoxic and short of breath Quality Stroke Does the patient have a stroke diagnosis?: No VTE Prior VTE?: No VTE Risk Level:: Medical - moderate - high VTE Device Contraindication: Treatment Not Indicated VTE Drug Contraindication: N/A - Med Ordered
--- NOTE | 2022-08-13 11:03 | MHC.CM.PN ---
Per ROUNDS discussion, Patient is still SOB and not yet medically cleared for dc. Home is the goal and CM will continue to follow.
[2022-08-13] MEDS: cefTRIAXone sodium 1 GM in 0.9 % Sodium Chloride 50 ML IV (11:18)
[2022-08-13] MEDS: Azithromycin 500 MG in 0.9 % Sodium Chloride 250 ML 125 MG IV (11:47)
[2022-08-13] MEDS: Enoxaparin Sodium 40 MG/0.4 ML SYRINGE SUBCUT (15:46)
[2022-08-13] MEDS: Benzonatate 100 MG CAPSULE 200 MG PO (20:22)
[2022-08-14] VITALS (10 sets, daily range): BP systolic 123–177; BP diastolic 63–87; PULSE 81–100; RESP 16–22; TEMP 36.2–36.6; O2SAT 94–98
[2022-08-14] MEDS: Benzonatate 100 MG CAPSULE 200 MG PO (05:18)
[2022-08-14 08:11] LABS: Hematocrit 34.2 % (37.0-47.0); Mean Corpuscular HGB Conc 32.2 g/dl (31.0-35.0); Mean Corpuscular Hemoglobin 29.1 pg (27.0-33.0); Mean Corpuscular Volume 90.5 fL (80.0-98.0); Mean Platelet Volume 9.2 fL (9.4-12.3); Platelet Count 545 X10*3/uL (160-400); Red Blood Count 3.78 X10*6/uL (4.20-5.50); Red Cell Distribution Width 15.3 % (11.0-16.0); White Blood Count 16.8 X10*3/uL (4.8-10.8)
[2022-08-14] MEDS: methylPREDNISolone Sod Succ 40 MG/ML VIAL IVPUSH ×2 (08:21→22:18)
[2022-08-14] MEDS: Aspirin Enteric Coated 81 MG TABLET.DR PO (08:22)
[2022-08-14] MEDS: Cholecalciferol (Vitamin D3) 25 MCG TABLET PO (08:22)
[2022-08-14] MEDS: Ascorbic Acid 500 MG TABLET PO (08:22)
[2022-08-14] MEDS: 0.9 % Sodium Chloride Flush 3 ML SYRINGE IVFLUSH ×2 (08:23→17:25)
[2022-08-14] MEDS: Acetaminophen 325 MG TABLET 650 MG PO ×2 (08:26→22:18)
[2022-08-14 08:27] LABS: Anion Gap 17 (12-20); Blood Urea Nitrogen 27 mg/dL (9-16); Calcium 9.3 mg/dL (8.4-10.2); Carbon Dioxide 24 mmol/L (22-29); Chloride 103 mmol/L (96-108); Creatinine Clr Calc Pharmacy 54.1; Estimated Glomerular Filt Rate > 60; Glucose Fasting 107 mg/dL (60-99); Potassium 4.7 mmol/L (3.3-5.1); Sodium 139 mmol/L (135-145)
[2022-08-14] MEDS: Fluticasone/Vilanterol 200/25 BLST.W.DEV 1 PUFF INHALE (08:35)
[2022-08-14] MEDS: Albuterol/Iprat 2.5/0.5MG 3 ML AMPUL.NEB INHALE ×4 (08:38→19:27)
[2022-08-14] MEDS: cefTRIAXone sodium 1 GM in 0.9 % Sodium Chloride 50 ML IV (12:41)
[2022-08-14] MEDS: Azithromycin 500 MG in 0.9 % Sodium Chloride 250 ML 125 MG IV (12:42)
--- NOTE | 2022-08-14 13:10 | HO.PM.IMPN ---
Subjective Subjective Date of Service: 08/14/22 Interval History: cc: sob interval history:ongoing sob Cardiovascular Cardiovascular: Reports no additional cardiovascular complaints Respiratory Respiratory: Reports no additional respiratory complaints Physical Exam Vital Signs: Vital Signs: Last Vital Signs Temp 98 F 08/14/22 11:33 Pulse 92 08/14/22 12:51 Resp 22 H 08/14/22 12:51 BP 141/63 H 08/14/22 11:33 Pulse Ox 94 08/14/22 11:33 O2 Del Method 08/14/22 11:33 O2 Flow Rate 1 08/12/22 11:43 Oxygen Flow Rate 2 08/10/22 23:45 BMI result Body Mass Index 34.7 General: AO X 3, in acute distress Resp: Crackles bilateral, accessory muscles used CVS: S1,S2,RRR GI: soft, non tender, non distended Neuro: motor grossly intact, alert Psych: appropriate affect, appropriate insight Objective Data Active Medications Acetaminophen (Acetaminophen 325 Mg Tablet) 650 mg PO Q6H PRN PRN Reason: Pain, Mild (Pain Scale 1-3) Last Admin: 08/14/22 08:26 Dose: 650 mg Documented By: JOHANA Albuterol Sulfate (Albuterol Sulfate 90 Mcg 8 Gm Inhaler) 2 puff INHALE Q6H PRN PRN Reason: Wheezing Albuterol/Ipratropium (Albuterol/Iprat 2.5/0.5mg 3 Ml Ampul.Neb) 3 ml INHALE RQ4H WHILE AWAKE [facility] Last Admin: 08/14/22 12:51 Dose: 3 ml Documented By: CRYSTAL Albuterol/Ipratropium (Albuterol/Iprat 2.5/0.5mg 3 Ml Ampul.Neb) 3 ml INHALE RQ4H PRN PRN Reason: Shortness of Breath Last Admin: 08/13/22 05:43 Dose: 3 ml Documented By: ZARA Ascorbic Acid (Ascorbic Acid 500 Mg Tablet) 500 mg PO DAILY [facility] Last Admin: 08/14/22 08:22 Dose: 500 mg Documented By: JOHANA Aspirin (Aspirin Enteric Coated 81 Mg Tablet.) 81 mg PO DAILY [facility] Last Admin: 08/14/22 08:22 Dose: 81 mg Documented By: JOHANA Benzonatate (Benzonatate 100 Mg Capsule) 200 mg PO TID PRN PRN Reason: Cough Last Admin: 08/14/22 05:18 Dose: 200 mg Documented By: SAEID Enoxaparin Sodium (Enoxaparin Sodium 40 Mg/0.4 Ml Syringe) 40 mg SUBCUT Q24H [facility] Last Admin: 08/13/22 15:46 Dose: 40 mg Documented By: KALE Fluticasone/Vilanterol (Fluticasone/Vilanterol 200/25 Blst.W.Dev) 1 puff INHALE RDAILY [facility] Last Admin: 08/14/22 08:35 Dose: 1 puff Documented By: CRYSTAL Guaifenesin/Dextromethorphan (Guaifenesin Dm 100/10/5 Ml 5 Ml Syrup) 5 ml PO Q4H PRN PRN Reason: cough Azithromycin 500 mg/ Sodium (Chloride) 250 mls @ 125 mls/hr IV Q24H [facility] Last Admin: 08/14/22 12:42 Dose: 125 mls/hr Documented By: JOHANA Ceftriaxone Sodium 1 gm/ (Sodium Chloride) 50 mls @ 100 mls/hr IV Q24H [facility] Last Admin: 08/14/22 12:41 Dose: 100 mls/hr Documented By: JOHANA Methylprednisolone Sodium Succinate (Methylprednisolone Sod Succ 40 Mg/Ml Vial) 40 mg IVPUSH Q12H [facility] Last Admin: 08/14/22 08:21 Dose: 40 mg Documented By: JOHANA Morphine Sulfate (Morphine Sulfate 2 Mg/Ml Cartridge) 2 mg IVPUSH Q4H PRN; Protocol PRN Reason: sob Ondansetron HCl (Ondansetron Hcl 4 Mg/2 Ml Vial) 4 mg IVPUSH Q8H PRN PRN Reason: Nausea and Vomiting Pharmacy Consult (Consult Rx Perform Med Rec) 1 each MISCELLANE ONCE PRN PRN Reason: Consult order Sodium Chloride (0.9 % Sodium Chloride Flush 3 Ml Syringe) 3 ml IVFLUSH QSHIFT [facility] Last Admin: 08/14/22 08:23 Dose: 3 ml Documented By: JOHANA Vitamin D (Cholecalciferol (Vitamin D3) 25 Mcg Tablet) 25 mcg PO DAILY [facility] Last Admin: 08/14/22 08:22 Dose: 25 mcg Documented By: JOHANA Labs CBC & Chem 7: 08/14/22 07:46 08/14/22 07:46 Labs: Laboratory Results - last 24 hr 08/14/22 08/14/22 07:46 07:46 MCV 90.5 MCH 29.1 MCHC 32.2 RDW 15.3 Plt Count 545 H MPV 9.2 L Absolute Nucleated RBC 0.000 Nucleated RBC % (auto) 0.0 Anion Gap 17 Estim Creat Clear Calc 54.1 Estimated GFR > 60 Fasting Glucose 107 H Calcium 9.3 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 with postobstructive pneumonia and decompensation of COPD continue Ceftriaxone, azithromycin, steroids and bronchodilators, wean O2 as tolerated - now on room air, but still sob covid positive likely from previous infection Recurrence of squamous cell carcinoma with 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
[2022-08-14] MEDS: Enoxaparin Sodium 40 MG/0.4 ML SYRINGE SUBCUT (17:25)
[2022-08-15] VITALS (10 sets, daily range): BP systolic 124–167; BP diastolic 56–74; PULSE 73–104; RESP 16–97; TEMP 36.2–36.8; O2SAT 93–97
[2022-08-15] MEDS: 0.9 % Sodium Chloride Flush 3 ML SYRINGE IVFLUSH ×3 (00:23→21:35)
[2022-08-15] MEDS: Morphine Sulfate 2 MG/ML CARTRIDGE IVPUSH ×2 (02:12→18:25)
[2022-08-15] MEDS: ondansetron HCL 4 MG/2 ML VIAL IVPUSH (02:12)
[2022-08-15] MEDS: Albuterol/Iprat 2.5/0.5MG 3 ML AMPUL.NEB INHALE ×4 (07:25→18:32)
[2022-08-15] MEDS: Fluticasone/Vilanterol 200/25 BLST.W.DEV 1 PUFF INHALE (07:26)
[2022-08-15 07:30] LABS: Hematocrit 34.1 % (37.0-47.0); Hemoglobin 10.9 g/dl (12.0-16.0); Mean Corpuscular Volume 90.7 fL (80.0-98.0); Mean Platelet Volume 9.1 fL (9.4-12.3); NRBC Pct Auto 0.1 /100WBC (0.0-0.2); Platelet Count 498 X10*3/uL (160-400); Red Blood Count 3.76 X10*6/uL (4.20-5.50); Red Cell Distribution Width 15.5 % (11.0-16.0); White Blood Count 15.8 X10*3/uL (4.8-10.8)
[2022-08-15 07:43] LABS: Anion Gap 17 (12-20); Blood Urea Nitrogen 29 mg/dL (9-16); Calcium 8.8 mg/dL (8.4-10.2); Carbon Dioxide 23 mmol/L (22-29); Chloride 103 mmol/L (96-108); Creatinine Clr Calc Pharmacy 53.4; Estimated Glomerular Filt Rate > 60; Glucose Fasting 127 mg/dL (60-99); Sodium 138 mmol/L (135-145)
[2022-08-15] MEDS: Cholecalciferol (Vitamin D3) 25 MCG TABLET PO (08:34)
[2022-08-15] MEDS: methylPREDNISolone Sod Succ 40 MG/ML VIAL IVPUSH ×2 (08:34→21:33)
[2022-08-15] MEDS: Ascorbic Acid 500 MG TABLET PO (08:34)
--- NOTE | 2022-08-15 10:26 | HO.PM.IMPN ---
Subjective Subjective Date of Service: 08/15/22 Interval History: cc: sob interval history:ongoing sob Cardiovascular Cardiovascular: Reports no additional cardiovascular complaints Respiratory Respiratory: Reports no additional respiratory complaints Physical Exam Vital Signs: Vital Signs: Last Vital Signs Temp 98.3 F 08/15/22 07:55 Pulse 73 08/15/22 07:55 Resp 20 08/15/22 07:55 BP 140/63 H 08/15/22 07:55 Pulse Ox 94 08/15/22 07:55 O2 Del Method 08/15/22 07:55 O2 Flow Rate 1 08/12/22 11:43 Oxygen Flow Rate 2 08/10/22 23:45 BMI result Body Mass Index 34.7 General: AO X 3, in acute distress Resp: Crackles bilateral, accessory muscles used CVS: S1,S2,RRR GI: soft, non tender, non distended Neuro: motor grossly intact, alert Psych: appropriate affect, appropriate insight Objective Data Active Medications Acetaminophen (Acetaminophen 325 Mg Tablet) 650 mg PO Q6H PRN PRN Reason: Pain, Mild (Pain Scale 1-3) Last Admin: 08/14/22 22:18 Dose: 650 mg Documented By: SAEID Albuterol Sulfate (Albuterol Sulfate 90 Mcg 8 Gm Inhaler) 2 puff INHALE Q6H PRN PRN Reason: Wheezing Albuterol/Ipratropium (Albuterol/Iprat 2.5/0.5mg 3 Ml Ampul.Neb) 3 ml INHALE RQ4H WHILE AWAKE [facility] Last Admin: 08/15/22 07:25 Dose: 3 ml Documented By: KUSH Albuterol/Ipratropium (Albuterol/Iprat 2.5/0.5mg 3 Ml Ampul.Neb) 3 ml INHALE RQ4H PRN PRN Reason: Shortness of Breath Last Admin: 08/13/22 05:43 Dose: 3 ml Documented By: ZARA Ascorbic Acid (Ascorbic Acid 500 Mg Tablet) 500 mg PO DAILY [facility] Last Admin: 08/15/22 08:34 Dose: 500 mg Documented By: DARLING Benzonatate (Benzonatate 100 Mg Capsule) 200 mg PO TID PRN PRN Reason: Cough Last Admin: 08/14/22 05:18 Dose: 200 mg Documented By: SAEID Fluticasone/Vilanterol (Fluticasone/Vilanterol 200/25 Blst.W.Dev) 1 puff INHALE RDAILY [facility] Last Admin: 08/15/22 07:26 Dose: 1 puff Documented By: KUSH Guaifenesin/Dextromethorphan (Guaifenesin Dm 100/10/5 Ml 5 Ml Syrup) 5 ml PO Q4H PRN PRN Reason: cough Azithromycin 500 mg/ Sodium (Chloride) 250 mls @ 125 mls/hr IV Q24H [facility] Last Infusion: 08/14/22 16:21 Dose: 0 mls/hr Documented By: JOHANA Ceftriaxone Sodium 1 gm/ (Sodium Chloride) 50 mls @ 100 mls/hr IV Q24H [facility] Last Infusion: 08/14/22 13:36 Dose: 0 mls/hr Documented By: JOHANA Methylprednisolone Sodium Succinate (Methylprednisolone Sod Succ 40 Mg/Ml Vial) 40 mg IVPUSH Q12H [facility] Last Admin: 08/15/22 08:34 Dose: 40 mg Documented By: DARLING Morphine Sulfate (Morphine Sulfate 2 Mg/Ml Cartridge) 2 mg IVPUSH Q4H PRN; Protocol PRN Reason: sob Last Admin: 08/15/22 02:12 Dose: 2 mg Documented By: SAEID Ondansetron HCl (Ondansetron Hcl 4 Mg/2 Ml Vial) 4 mg IVPUSH Q8H PRN PRN Reason: Nausea and Vomiting Last Admin: 08/15/22 02:12 Dose: 4 mg Documented By: SAEID Pharmacy Consult (Consult Rx Perform Med Rec) 1 each MISCELLANE ONCE PRN PRN Reason: Consult order Sodium Chloride (0.9 % Sodium Chloride Flush 3 Ml Syringe) 3 ml IVFLUSH QSHIFT [facility] Last Admin: 08/15/22 08:38 Dose: 3 ml Documented By: DARLING Vitamin D (Cholecalciferol (Vitamin D3) 25 Mcg Tablet) 25 mcg PO DAILY [facility] Last Admin: 08/15/22 08:34 Dose: 25 mcg Documented By: DARLING Labs CBC & Chem 7: 08/15/22 07:10 08/15/22 07:10 Labs: Laboratory Results - last 24 hr 08/15/22 08/15/22 07:10 07:10 MCV 90.7 MCH 29.0 MCHC 32.0 RDW 15.5 Plt Count 498 H MPV 9.1 L Absolute Nucleated RBC 0.020 H Nucleated RBC % (auto) 0.1 Anion Gap 17 Estim Creat Clear Calc 53.4 Estimated GFR > 60 Fasting Glucose 127 H Calcium 8.8 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 with postobstructive pneumonia and decompensation of COPD continue Ceftriaxone, azithromycin, steroids and bronchodilators, wean O2 as tolerated, morphine for work of breathing covid positive likely from previous infection Recurrence 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
[2022-08-15] MEDS: cefTRIAXone sodium 1 GM in 0.9 % Sodium Chloride 50 ML IV (10:57)
[2022-08-15] MEDS: Azithromycin 500 MG in 0.9 % Sodium Chloride 250 ML 125 MG IV (12:02)
[2022-08-15] MEDS: guaiFENesin DM 100/10/5 ML 5 ML SYRUP PO (18:13)
[2022-08-15] MEDS: Acetaminophen 325 MG TABLET 650 MG PO (23:08)
[2022-08-16] VITALS (9 sets, daily range): BP systolic 101–165; BP diastolic 49–76; PULSE 83–101; RESP 16–20; TEMP 36.1–37.7; O2SAT 90–98
[2022-08-16] MEDS: Morphine Sulfate 2 MG/ML CARTRIDGE IVPUSH ×3 (01:46→13:43)
[2022-08-16] MEDS: Fluticasone/Vilanterol 200/25 BLST.W.DEV 1 PUFF INHALE (07:50)
[2022-08-16] MEDS: Albuterol/Iprat 2.5/0.5MG 3 ML AMPUL.NEB INHALE ×2 (07:50→19:08)
[2022-08-16 08:46] LABS: INTERNATIONAL NORM RATIO 1.1 (0.9-1.1); Prothrombin Time 12.8 SEC (10.0-13.1)
--- NOTE | 2022-08-16 09:25 | P.PNIM_ITS ---
Subjective Subjective Date of Service: 08/16/22 Interval History: cc: sob interval history:ongoing sob Cardiovascular Cardiovascular: Reports no additional cardiovascular complaints Respiratory Respiratory: Reports no additional respiratory complaints Physical Exam Vital Signs: Vital Signs: Last Vital Signs Temp 98.2 F 08/16/22 07:41 Pulse 99 08/16/22 07:52 Resp 20 08/16/22 07:41 BP 165/72 H 08/16/22 07:41 Pulse Ox 94 08/16/22 07:41 O2 Del Method 08/16/22 07:41 O2 Flow Rate 2 08/16/22 07:41 Oxygen Flow Rate 2 08/10/22 23:45 BMI result Body Mass Index 34.7 General: AO X 3, mild acute distress Resp: Crackles bilateral, mild accessory muscles used CVS: S1,S2,RRR GI: soft, non tender, non distended Neuro: motor grossly intact, alert Psych: appropriate affect, appropriate insight Objective Data Active Medications Acetaminophen (Acetaminophen 325 Mg Tablet) 650 mg PO Q6H PRN PRN Reason: Pain, Mild (Pain Scale 1-3) Last Admin: 08/15/22 23:08 Dose: 650 mg Documented By: BALDEMAR Albuterol Sulfate (Albuterol Sulfate 90 Mcg 8 Gm Inhaler) 2 puff INHALE Q6H PRN PRN Reason: Wheezing Albuterol/Ipratropium (Albuterol/Iprat 2.5/0.5mg 3 Ml Ampul.Neb) 3 ml INHALE RQ4H WHILE AWAKE [facility] Last Admin: 08/16/22 07:50 Dose: 3 ml Documented By: AJNEL Albuterol/Ipratropium (Albuterol/Iprat 2.5/0.5mg 3 Ml Ampul.Neb) 3 ml INHALE RQ4H PRN PRN Reason: Shortness of Breath Last Admin: 08/13/22 05:43 Dose: 3 ml Documented By: ZARA Ascorbic Acid (Ascorbic Acid 500 Mg Tablet) 500 mg PO DAILY [facility] Last Admin: 08/15/22 08:34 Dose: 500 mg Documented By: DARLING Benzonatate (Benzonatate 100 Mg Capsule) 200 mg PO TID PRN PRN Reason: Cough Last Admin: 08/14/22 05:18 Dose: 200 mg Documented By: SAEID Fluticasone/Vilanterol (Fluticasone/Vilanterol 200/25 Blst.W.Dev) 1 puff INHALE RDAILY [facility] Last Admin: 08/16/22 07:50 Dose: 1 puff Documented By: ANJEL Guaifenesin/Dextromethorphan (Guaifenesin Dm 100/10/5 Ml 5 Ml Syrup) 5 ml PO Q4H PRN PRN Reason: cough Last Admin: 08/15/22 18:13 Dose: 5 ml Documented By: DARLING Azithromycin 500 mg/ Sodium (Chloride) 250 mls @ 125 mls/hr IV Q24H [facility] Last Infusion: 08/15/22 14:04 Dose: 0 mls/hr Documented By: DARLING Ceftriaxone Sodium 1 gm/ (Sodium Chloride) 50 mls @ 100 mls/hr IV Q24H [facility] Last Infusion: 08/15/22 12:07 Dose: 0 mls/hr Documented By: DARLING Methylprednisolone Sodium Succinate (Methylprednisolone Sod Succ 40 Mg/Ml Vial) 40 mg IVPUSH Q12H [facility] Last Admin: 08/15/22 21:33 Dose: 40 mg Documented By: BALDEMAR Morphine Sulfate (Morphine Sulfate 2 Mg/Ml Cartridge) 2 mg IVPUSH Q4H PRN; Protocol PRN Reason: sob Last Admin: 08/16/22 01:46 Dose: 2 mg Documented By: BALDEMAR Ondansetron HCl (Ondansetron Hcl 4 Mg/2 Ml Vial) 4 mg IVPUSH Q8H PRN PRN Reason: Nausea and Vomiting Last Admin: 08/15/22 02:12 Dose: 4 mg Documented By: SAEID Pharmacy Consult (Consult Rx Perform Med Rec) 1 each MISCELLANE ONCE PRN PRN Reason: Consult order Sodium Chloride (0.9 % Sodium Chloride Flush 3 Ml Syringe) 3 ml IVFLUSH QSHIFT [facility] Last Admin: 08/15/22 21:35 Dose: 3 ml Documented By: BALDEMAR Vitamin D (Cholecalciferol (Vitamin D3) 25 Mcg Tablet) 25 mcg PO DAILY [facility] Last Admin: 08/15/22 08:34 Dose: 25 mcg Documented By: DARLING Labs CBC & Chem 7: 08/15/22 07:10 08/15/22 07:10 Labs: Laboratory Results - last 24 hr 08/16/22 07:58 PT 12.8 INR 1.1 APTT 26.0 Microbiology Microbiology Results: Microbiology 08/10/22 10:06 Blood Culture - Final Blood - Venous No growth after 5 days. 08/10/22 10:06 Blood Culture - Final Blood - Venous No growth after 5 days. 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
[2022-08-16] MEDS: methylPREDNISolone Sod Succ 40 MG/ML VIAL IVPUSH ×2 (09:39→19:59)
[2022-08-16] MEDS: Cholecalciferol (Vitamin D3) 25 MCG TABLET PO (09:39)
[2022-08-16] MEDS: 0.9 % Sodium Chloride Flush 3 ML SYRINGE IVFLUSH ×3 (09:39→19:59)
[2022-08-16] MEDS: Ascorbic Acid 500 MG TABLET PO (09:39)
[2022-08-16] MEDS: guaiFENesin DM 100/10/5 ML 5 ML SYRUP PO ×2 (09:48→13:42)
[2022-08-16] MEDS: cefTRIAXone sodium 1 GM in 0.9 % Sodium Chloride 50 ML IV (11:31)
[2022-08-16] MEDS: Azithromycin 500 MG in 0.9 % Sodium Chloride 250 ML 125 MG IV (13:16)
[2022-08-16] MEDS: Benzonatate 100 MG CAPSULE 200 MG PO (13:42)
[2022-08-17 03:42] VITALS: BP 146/80; PULSE 93; RESP 20; TEMP 36.6; O2SAT 94
[2022-08-17 06:23] LABS: Hematocrit 36.5 % (37.0-47.0); Hemoglobin 11.5 g/dl (12.0-16.0); Mean Corpuscular HGB Conc 31.5 g/dl (31.0-35.0); Mean Corpuscular Hemoglobin 29.5 pg (27.0-33.0); Mean Corpuscular Volume 93.6 fL (80.0-98.0); Mean Platelet Volume 9.8 fL (9.4-12.3); NRBC Pct Auto 0.1 /100WBC (0.0-0.2); Platelet Count 335 X10*3/uL (160-400); Red Cell Distribution Width 16.5 % (11.0-16.0); White Blood Count 17.9 X10*3/uL (4.8-10.8)
[2022-08-17 06:49] LABS: Anion Gap 20 (12-20); Blood Urea Nitrogen 29 mg/dL (9-16); Calcium 8.6 mg/dL (8.4-10.2); Carbon Dioxide 17 mmol/L (22-29); Chloride 102 mmol/L (96-108); Creatinine Clr Calc Pharmacy 51.4; Estimated Glomerular Filt Rate > 60; Glucose Fasting 141 mg/dL (60-99); Potassium 5.2 mmol/L (3.3-5.1); Sodium 134 mmol/L (135-145)
[2022-08-17 07:19] VITALS: BP 137/65; PULSE 95; RESP 20; TEMP 36.7; O2SAT 96
[2022-08-17] MEDS: Albuterol/Iprat 2.5/0.5MG 3 ML AMPUL.NEB INHALE ×2 (08:07→11:58)
[2022-08-17 08:08] VITALS: PULSE 100; RESP 20; O2SAT 95
[2022-08-17] MEDS: Fluticasone/Vilanterol 200/25 BLST.W.DEV 1 PUFF INHALE (08:08)
[2022-08-17] MEDS: predniSONE 20 MG TABLET 40 MG PO (09:39)
[2022-08-17] MEDS: Ascorbic Acid 500 MG TABLET PO (09:40)
[2022-08-17] MEDS: 0.9 % Sodium Chloride Flush 3 ML SYRINGE IVFLUSH (09:40)
[2022-08-17] MEDS: Cholecalciferol (Vitamin D3) 25 MCG TABLET PO (09:40)
[2022-08-17] MEDS: Morphine Sulfate 2 MG/ML CARTRIDGE IVPUSH (09:40)
[2022-08-17] MEDS: Benzonatate 100 MG CAPSULE 200 MG PO (09:50)
[2022-08-17] MEDS: guaiFENesin DM 100/10/5 ML 5 ML SYRUP PO (09:50)
--- NOTE | 2022-08-17 10:27 | PM.DS ---
DS: Providers Provider Date of Service: 08/17/22 Date of admission: 08/10/22 15:02 Primary care physician: Roxana Fairchild MD Consults: 08/10/22 15:01 Consult to Pulmonology Routine Consulting Provider: Edison Treadwell Reason for consultation: Left lung mass, pneumonia, sepsis 08/11/22 12:13 Consult to Hematology / Oncology Routine Consulting Provider: Mathew Pierce Reason for consultation: recurrent lung cancer possible mets DS: Diagnosis Discharge Diagnosis (1) Acute respiratory failure: Status: Acute DS: Summary Hospital Course Hospital Course: from initial hpi: Chief Complaint: Dyspnea on exertion, generalized weakness An 86 years old lady with you of SCC lung CA, DJD, HTN, COPD among others who presents to the hospital as a referral from oncology office for worsening dyspnea and shortness of breath.? The patient reports that she was diagnosed with COVID almost 1 month ago and never recovered from it was she has been complaining of worsening dyspnea, feeling unwell and weak.? She was followed today with Dr. Pierce from Oncology who noticed that the patient looks sick and unwell and recommended her to visit the emergency.? She reports that she has decreased oral intake, feeling weak, dyspnea with exercise, dry cough, denies any fever, chills or chest pain.? In the emergency a CT scan of the chest was consistent with left lobe infiltrate and likely mass.? CT abdomen concerning for possible metastasis to liver. Admitted for further evaluation and treatment. 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 She was treated with ceftriaxone azithromycin, Solu-Medrol, bronchodilators. She will be transitioned to 5 more days of oral cefuroxime and prednisone. Was able to be weaned off oxygen. She was also noted to be COVID positive although this was likely from previous infection. For her recurrence of squamous cell carcinoma with possible liver Mets, initially plan was for liver biopsy inpatient, this has been deferred till outpatient. Patient is feeling better will be discharged home. Time Spent with Patient Time attestation: Total time spent providing and/or coordinating discharge services: Discharge coordination time: Greater than 30 minutes Quality: Safe Use of Opioids Does Pt have an Active Cancer Diagnosis on the Problem List?: Yes Opioid Measure Date for [facility] Report: 07/18/22 Opioid Measure Time for [facility] Report: 10:27 Quality: Stroke Does the patient have a stroke diagnosis?: No Physical Exam Vital Signs: Vital Signs: Last Vital Signs Temp 98.1 F 08/17/22 07:19 Pulse 100 08/17/22 08:08 Resp 20 08/17/22 08:08 BP 137/65 08/17/22 07:19 Pulse Ox 96 08/17/22 07:19 O2 Del Method 08/17/22 07:19 O2 Flow Rate 2 08/16/22 07:41 Oxygen Flow Rate 2 08/10/22 23:45 BMI result Body Mass Index 34.7 General: AO X 3, no acute distress Resp: CTA bilateral, no accessory muscles used CVS: S1,S2,RRR GI: soft, non tender, non distended Neuro: motor grossly intact, alert Psych: appropriate affect, appropriate insight DS: Data Data Completed and Pending Labs on day of discharge: Laboratory Results - last 24 hr 08/17/22 08/17/22 06:08 06:08 WBC 17.9 H RBC 3.90 L Hgb 11.5 L Hct 36.5 L MCV 93.6 MCH 29.5 MCHC 31.5 RDW 16.5 H Plt Count 335 D MPV 9.8 Absolute Nucleated RBC 0.020 H Nucleated RBC % (auto) 0.1 Sodium 134 L Potassium 5.2 H Chloride 102 Carbon Dioxide 17 L Anion Gap 20 BUN 29 H Creatinine 0.83 Estim Creat Clear Calc 51.4 Estimated GFR > 60 Fasting Glucose 141 H Calcium 8.6 Discharge Plan Discharge Anticipated Discharge Date/Time: 08/17/22 10:13 Patient Disposition: Home Health Service Discharge Diagnosis: postobstructive pna Referrals: Po,Roxana Suarez MD [Primary Care Provider] - 1 Week Discharge Medications: New cefuroxime axetil 500 mg tablet 500 mg PO BID Qty: 10 0RF prednisone 20 mg Tablet 40 mg PO DAILY Qty: 10 0RF dextromethorphan-guaifenesin 10-100 mg/5 mL Syrup 5 ml PO Q4H PRN (Reason: cough) Qty: 237 0RF oxycodone 5 mg tablet 5 mg PO Q6H PRN (Reason: sob, mod pain) Qty: 30 0RF Rx Instructions: Partial Fill upon patient request. Continued Breo Ellipta 200-25 mcg/dose blister with device 1 inh PO DAILY 90 Days Qty: 180 3RF Praluent Pen 75 mg/mL pen injector 75 mg subcut Q2W 90 Days Qty: 7 3RF albuterol sulfate 90 mcg/actuation Hfa Aerosol Inhaler 2 puff INHALATION Q6H PRN (Reason: Wheezing) cholecalciferol (vitamin D3) 25 mcg (1,000 unit) capsule 25 mcg PO DAILY ascorbate calcium (vitamin C) 500 mg tablet 500 mg PO DAILY aspirin 81 mg tablet,delayed release (DR/EC) 81 mg PO DAILY Discharge Orders: Discharge Order (Routine); Ordered 08/17/22 Ordered By: Flako Girard Diet: Advance to usual diet Activity on Discharge: As tolerated Stand Alone Forms: Patient Portal Discharge page Other Ambulatory Orders: US biopsy liver (Routine) Timeframe: 1 Day Facility: [facility] - Location: Ultrasound Ordered By: Flako Girard Care Plan Goals: recovery Health Concerns: postobstructive pna Plan of Treatment: 5 more days ceftin and prednisone, oxy and robitussin as needed. follow up outpaitent for liver biopsy Assessment: see above
[2022-08-17 11:38] VITALS: BP 139/53; PULSE 89; RESP 16; TEMP 36.4; O2SAT 95
[2022-08-17 11:58] VITALS: PULSE 101; RESP 19; O2SAT 95
--- NOTE | 2022-08-17 12:21 | MHC.CM.PN ---
IMM 08/17/22 DX Covid+ discharged to home today with [facility]. Patients Spouse will provide transportation home.
[2022-08-17] MEDS: cefTRIAXone sodium 1 GM in 0.9 % Sodium Chloride 50 ML IV (12:31)
== END 2022-08-17 13:45 | disposition home health service (06) | DRG 194 ==
LOC: HO.ED 14:31 → HO.EDOVER 15:16 → HO.IMC 08-11 15:15
PROVIDERS: Physician Assistant Medical; Admitting Provider Student in an Organized Health Care Education/Training Program; Emergency Provider Emergency Medicine; PCP Internal Medicine; Visit Provider Internal Medicine
DX: J18.9 Pneumonia, unspecified organism (principal); C34.12 Malignant neoplasm of upper lobe, left bronchus or lung; J44.1 Chronic obstructive pulmonary disease with (acute) exacerbation; C78.7 Secondary malignant neoplasm of liver and intrahepatic bile duct; J44.0 Chronic obstructive pulmonary disease with (acute) lower respiratory infection; I25.10 Atherosclerotic heart disease of native coronary artery without angina pectoris; E66.9 Obesity, unspecified; Z68.34 Body mass index [BMI] 34.0-34.9, adult; Z86.16 Personal history of COVID-19; Z20.822 Contact with and (suspected) exposure to COVID-19; Z96.641 Presence of right artificial hip joint; Z90.2 Acquired absence of lung [part of]; Z86.711 Personal history of pulmonary embolism; Z87.891 Personal history of nicotine dependence; Z88.8 Allergy status to other drugs, medicaments and biological substances; Z79.51 Long term (current) use of inhaled steroids; Z79.82 Long term (current) use of aspirin; Z79.899 Other long term (current) drug therapy
CPT/HCPCS: 0241U; 36415; 71045; 71275; 74177; 80048; 80053; 83605; 83735; 83880; 84484; 85025; 85027; 85610; 85730; 87040; 93005; 94640; 99285; J0456; J0696; J1650; J2270; J2405; J2920; J2930; Q9967

== ENCOUNTER 2022-08-18 08:14 | Day surgery (SDC) | payer MEDICARE, SELFPAY ==
[2022-08-18] VITALS (8 sets, daily range): BP systolic 111–144; BP diastolic 26–79; PULSE 79–90; RESP 16–24; TEMP 36.8–37.1; O2SAT 93–95; BMI 35.0
--- NOTE | ~2022-08-18 | US_ITS ---
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 COMPARISON: 08/10/2022 TECHNIQUE: Ultrasound-guided core biopsy left lobe of liver nodule. FINDINGS: Informed consent was obtained from the patient prior to the procedure. During this process, the procedure and potential alternatives were explained, along with the intended outcome and benefits. The risks of the procedure, as well as the risk of not doing the procedure, were discussed. The patient was given the opportunity to ask questions regarding the procedure and appeared competent to make medical decisions. A signed consent form which documents this discussion was placed in the medical record. Using sterile technique and ultrasound guidance, a 17-gauge guiding needle was directed down onto a left hepatic lesion. Five 18-gauge core biopsies were performed of the regions of the mass. Samples were placed in formalin. Patient tolerated procedure without difficulty. Ultrasound scanning post procedure does not demonstrate any evidence of hemorrhage or subcapsular fluid collection. US/US biopsy liver IMPRESSION: Ultrasound-guided liver core biopsy as described.
[2022-08-18] MEDS: Lidocaine HCl 1 % MPF 5 ML VIAL 10 ML SUBCUT (10:49)
== END 2022-08-18 12:36 | disposition home or self-care (01) ==
PROVIDERS: PCP Internal Medicine; Visit Provider Radiology Diagnostic Radiology
DX: C34.91 Malignant neoplasm of unspecified part of right bronchus or lung (principal); C78.7 Secondary malignant neoplasm of liver and intrahepatic bile duct; Z85.118 Personal history of other malignant neoplasm of bronchus and lung; I10 Essential (primary) hypertension; J44.9 Chronic obstructive pulmonary disease, unspecified; Z79.899 Other long term (current) drug therapy; Z79.82 Long term (current) use of aspirin; Z88.8 Allergy status to other drugs, medicaments and biological substances; Z87.891 Personal history of nicotine dependence; Z86.73 Personal history of transient ischemic attack (TIA), and cerebral infarction without residual deficits; Z86.711 Personal history of pulmonary embolism; Z86.16 Personal history of COVID-19
CPT/HCPCS: 47000; 76942; 88307; 88313; 88341; 88342

== ENCOUNTER 2022-08-24 07:56 | Inpatient (IN) | payer MEDICARE, SELFPAY ==
[2022-08-24] VITALS (8 sets, daily range): BP systolic 116–158; BP diastolic 46–76; PULSE 92–110; RESP 16–34; TEMP 36.6–37.6; O2SAT 93–98; BMI 34.0
--- NOTE | ~2022-08-24 | US_ITS ---
EXAMINATION: US VENOUS ULTRASOUND WITH DOPPLER LOWER EXTREMITY, RIGHT CLINICAL INFORMATION: Lower extremity swelling with question of DVT COMPARISON: Bilateral DVT study 02/14/2019 TECHNIQUE: Ultrasound of the deep veins is performed from the hip to the calf with compression sonography and color and pulse Doppler assessment. Spectral analysis with color-flow imaging is performed. FINDINGS: There is normal venous compression and respiratory variation and augmented flow. The visualized common femoral vein, superficial femoral vein, profunda femoral vein, popliteal vein, and the trifurcation region shows no evidence of deep venous thrombosis. The peroneal veins could not be visualized. There is no significant popliteal fossa cyst. If the patient's symptoms persist, followup ultrasound in 5 days 7 days might be of value to exclude proximal propagation from a non-visualized calf vein. US/US venous duplex LE RT IMPRESSION: No DVT demonstrated in the right lower extremity.
--- NOTE | ~2022-08-24 | CT_ITS ---
EXAMINATION: CT ANGIOGRAM CHEST WITH AND WITHOUT CONTRAST (CT PULMONARY ANGIOGRAM FOR PE) CLINICAL INFORMATION: Shortness of breath. History of pulmonary embolism. COMPARISON: Multiple priors with the last chest CTA of 08/10/2022. TECHNIQUE: Prior to contrast administration, noncontrast localization images were obtained. Subsequently, multidetector volumetric imaging was performed from the thoracic inlet to below the diaphragms following the administration of 65 mL Omnipaque 350 intravenous contrast. No contrast reaction reported. Sagittal, coronal, and MIP oblique sagittal reformatted images were obtained on the CT workstation, uploaded to PACS, and reviewed. This CT examination was performed using dose optimization techniques as appropriate, variously including the following: *Automated exposure control *Adjustment of mA and/or kV according to patient size (this includes techniques or standardized protocols for targeted exams where dose is matched to indication/reason for exam; i.e. extremities or head) *Use of iterative reconstruction technique Total exam dose-length product 428 mGy-cm. FINDINGS: QUALITY OF STUDY/CONTRAST BOLUS: Satisfactory. PULMONARY ARTERIES: No central or segmental pulmonary emboli. THORACIC AORTA: No aneurysm or dissection. The descending thoracic aorta is mildly ectatic measuring 3.2 cm in maximum AP diameter. Scattered calcific atherosclerosis of the aorta. CORONARY CALCIFICATIONS: Moderate coronary calcifications are noted. LUNGS: Postsurgical changes of right upper lobectomy are again noted. A 0.5 x 1.0 cm opacity along the fissure in the right upper lung zone (series 8, image 135) is a stable finding since the previous CT scan of 08/16/2019. There is moderate interval improvement in the patchy airspace opacities in the left upper lobe with persistent moderate disease and cystic changes. The consolidative mass-like opacity in this region extends into the adjacent mediastinum encasing the left upper lobe pulmonary artery which, however, is otherwise patent. Moderate interval improvement in the patchy airspace opacities in the left upper lobe compared to previous CT of 08/10/2022. The consolidative mass-like opacity from this region extends into the adjacent mediastinum encasing the left upper lobe bronchus. The left upper lobe lobar bronchus is not seen. The mild slight component in the left-sided mediastinum measures approximately 5.2 x 5.0 cm (series 8, image 188). PLEURA: No pleural effusion or pneumothorax. MEDIASTINUM: Normal heart size. No pericardial effusion. Left superior mediastinal lymph node measures 2.3 x 2.5 cm (series 8, image 9), not significantly changed compared to the last study. A few adjacent left-sided anterior lateral mediastinal lymph nodes are again noted, measuring 1.7 x 1.9 cm and 1.3 cm (series 8, image 138, 118). No right hilar adenopathy is noted. No evidence of septal bowing or right heart strain. There is narrowing of the trachea and mainstem bronchi in the AP dimension suggesting tracheobronchomalacia. Minimal low-density material is noted in the left mainstem bronchus, likely mucus secretion. CHEST WALL/AXILLAE: No axillary or internal mammary lymphadenopathy. OSSEOUS STRUCTURES: A 1.3 cm lucent lesion is noted in the T2 body. Multilevel degenerative changes in the thoracic spine. No acute osseous abnormality. UPPER ABDOMEN: Unremarkable. No reflux of contrast into the hepatic veins to suggest elevated right heart pressures. CT/CT angio chest PE protocol IMPRESSION: 1. No evidence of pulmonary embolism. 2. Moderate interval improvement in the patchy airspace opacities in the left upper lobe compared to the previous CT of 08/10/2022. The consolidative mass-like opacity in this region extends into the adjacent mediastinum encasing the left upper lobe pulmonary artery and left upper lobe bronchus. The left upper lobe lobar bronchus is not seen. Given the interval improvement findings most probably represent inflammatory/infectious process possibility of malignant neoplastic process cannot be completely excluded given the masslike appearance of the mediastinal component of the process. The findings are new compared to previous CT of 12/18/2021. 3. Stable left superior mediastinal and left anterior lateral mediastinal adenopathy is new compared to previous CT off to 09/19/2022. 4. A 1.3 cm lucent lesion in the T2 body is nonspecific and could represent metastatic lesion, as finding is not clearly appreciated on the CT scan of 12/18/2021. VTE: Negative
--- NOTE | ~2022-08-24 | US_ITS ---
EXAMINATION: US ABDOMEN LIMITED CLINICAL INFORMATION: Liver metastases, elevated LFTs and hyperbilirubinemia. COMPARISON: Same day CT scan. TECHNIQUE: Real-time imaging of the right upper quadrant abdominal viscera. FINDINGS: PANCREAS: Unremarkable. Superior to the pancreas, 1.6 x 0.6 x 1.2 cm lymph node is seen. LIVER: Liver is enlarged with innumerable masses, largest is in the right lobe measuring 5.6 x 5.5 x 5.5 cm. Intrahepatic biliary ductal dilatation is also present. GALLBLADDER: Surgically removed. No tenderness elicited in the gallbladder fossa. COMMON BILE DUCT: Normal in caliber measuring 0.5 cm in diameter. RIGHT KIDNEY: Normal. No hydronephrosis. No renal calculi. 3.4 x 3.3 x 3.5 cm lower pole cyst is seen. The kidney measures 10.5 cm in maximum dimension. FREE FLUID: None. US/US abdomen limited IMPRESSION: Enlarged liver with large burden of hepatic metastases and intrahepatic biliary ductal dilatation. 1.6 cm peripancreatic lymph node. 3.5 cm lower pole right renal cyst.
--- NOTE | ~2022-08-24 | CT_ITS ---
EXAMINATION: CT ABDOMEN AND PELVIS WITHOUT CONTRAST CLINICAL INFORMATION: Upper abdominal pain COMPARISON: 08/10/2022 TECHNIQUE: Multidetector volumetric imaging was performed from the superior aspect of the liver through the pubic symphysis. Sagittal and coronal reformatted images were obtained on the technologist's workstation. This CT examination was performed using dose optimization techniques as appropriate, variously including the following: *Automated exposure control *Adjustment of mA and/or kV according to patient size (this includes techniques or standardized protocols for targeted exams where dose is matched to indication/reason for exam; i.e. extremities or head) *Use of iterative reconstruction technique DLP: 682 mGy-cm FINDINGS: LUNG BASES: The visualized lung bases are unremarkable. LIVER, GALLBLADDER, AND BILIARY TREE: The liver is enlarged. 8 wall hypoattenuating masses are seen throughout the liver, similar to prior. Trace perihepatic ascites. Cholecystectomy. PANCREAS: Unremarkable. SPLEEN: Unremarkable. ADRENAL GLANDS: Unremarkable. KIDNEYS AND URETERS: The kidneys are normal in size, shape, and attenuation. No hydronephrosis, hydroureter, or calculi seen. No perinephric stranding. Simple bilateral renal cysts. No follow-up imaging recommended. BLADDER: Contrast filled bladder. No wall thickening. GASTROINTESTINAL TRACT: Stomach is unremarkable. Normal caliber small bowel. No obstruction. Colonic diverticulosis present without diverticulitis. The appendix is not seen. No free air or free fluid. ABDOMINAL WALL: No significant hernia. Mild anasarca LYMPH NODES: Normal. VASCULAR: Moderate atherosclerotic vascular calcifications. Redemonstration of the abdominal aortic aneurysm, unchanged from prior. This measures 3.2 cm. PELVIC VISCERA: No pelvic mass. OSSEOUS STRUCTURES: Total right hip arthroplasty without evidence of failure. Moderate degenerative change of the left hip. Degenerative change throughout the spine. CT/CT abdomen pelvis wo IV con IMPRESSION: 1. No acute finding of the abdomen or pelvis. 2. Redemonstration of multiple hypoattenuating masses throughout the liver, similar to prior, again consistent with metastatic disease. 3. Unchanged abdominal aortic aneurysm measuring 3.2 cm. Recommend follow-up every 3 years. Fleischner guidelines were followed.
--- NOTE | 2022-08-24 08:03 | ED.GENADULT ---
HPI - General Adult General Chief complaint: Dyspnea Stated complaint: SOB X'S 1 MONTH SINCE COVID Time Seen by Provider: 08/24/22 08:03 Source: patient and EMS Mode of arrival: EMS Limitations: no limitations History of Present Illness HPI narrative: Patient is an 86 year old assigned female at with a history of lung cancer with mets to the liver, persistent COVID symptoms, and HTN presenting to the emergency department today with persistent shortness of breath and back pain. Patient states that she has been having shortness of breathing and wheezing since she had COVID in July. Patient states that she was admitted here a few weeks ago for this and was told then that she had a mass in her left lung with evidence of spread to her liver. Patient states that she recently had a liver biopsy but hasn't gotten results. Patient states she is also having low back pain. Patient denies any dizziness, lightheadedness, abdominal pain, nausea, vomiting, fever, chills, blurry vision, double vision, loss of vision, chest pain, night sweats, pain with urination, increased urinary frequency, increased urinary urgency, blood in her urine or stool, syncope or a near syncopal episode, recent trauma or falls, bowel incontinence, bladder incontinence, bowel retention, bladder retention, or any other complaints at this time. Onset (ago): week(s) Severity: moderate Relieving factors: none Exacerbating factors: none Associated symptoms: shortness of breath Treatments prior to arrival: none Related Data Home Medications Medication Instructions Recorded Confirmed aspirin 81 mg tablet,delayed 81 mg PO DAILY 09/09/20 08/24/22 release ascorbate calcium (vitamin C) 500 500 mg PO DAILY 09/16/20 08/24/22 mg tablet cholecalciferol (vitamin D3) 25 25 mcg PO DAILY 09/16/20 08/24/22 mcg (1,000 unit) capsule albuterol sulfate 90 mcg/actuation 2 puff inhalation Q6H PRN Wheezing 08/10/22 08/24/22 aerosol inhaler Previous Rx's Medication Instructions Recorded fluticasone furoate 200 1 inh PO DAILY 90 days #180 ea 02/15/22 mcg-vilanterol 25 mcg/dose inhalation powder (Breo Ellipta) alirocumab 75 mg/mL subcutaneous 75 mg subcut Q2W 90 days #7 mL 05/25/22 pen injector (Praluent Pen) dextromethorphan-guaifenesin 10 5 ml PO Q4H PRN cough #237 mL 08/17/22 mg-100 mg/5 mL oral syrup oxycodone 5 mg tablet 5 mg PO Q6H PRN sob, mod pain #30 08/17/22 tabs prednisone 20 mg tablet 40 mg PO DAILY #10 tabs 08/17/22 Allergies Allergy/AdvReac Type Severity Reaction Status Date / Time [id number]-[id number] Reductase Allergy Mild MENTAL Verified 08/10/22 08:23 Inhibitor CHANGES [[id number] REDUCTASE INHIBITOR] rosuvastatin [Crestor] Allergy Unknown weakness,muscle Verified 08/10/22 08:23 aches Review of Systems Constitutional: Constitutional: Reports no additional constitutional complaints, Denies chills, Denies fever(s) and Denies night sweats Eyes: Eyes: Reports no additional eye complaints, Denies blurry vision, Denies change in vision, Denies diplopia, Denies eye discharge, Denies loss of vision and Denies eye pain ENT: Denies dizziness Cardiovascular: Cardiovascular: Reports no additional cardiovascular complaints, Denies chest pain, Denies lightheadedness, Denies Loss of Consciousness and Reports dyspnea Respiratory: Respiratory: Reports no additional respiratory complaints and Reports dyspnea Gastrointestinal: Gastrointestinal: Reports no additional gastrointestinal complaints, Denies abdominal pain, Denies melena, Denies hematochezia, Denies change in bowel habits and Denies change in stool character Genitourinary: Genitourinary: Denies hematuria, Denies urinary frequency, Denies dysuria, Denies urinary incontinence, Denies urinary hesitancy and Denies urinary urgency Musculoskeletal: Musculoskeletal: Reports no additional musculoskeletal complaints, Reports back pain, Denies numbness and Denies tingling Neurologic: Denies dizziness, Denies loss of vision, Denies numbness and Denies tingling Psychiatric: Psychiatric: Reports no additional psychiatric complaints Endocrine: Endocrine: Reports no additional endocrine complaints Hematologic/Lymphatic: Hematologic/Lymphatic: Reports no additional hematologic/lymphatic complaints Allergic/Immunologic: Allergic/Immunologic: Reports no additional allergic/immunologic complaints PMFSH Past Medical History Attestation statement: The following information was validated with the patient. 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 Carotid stenosis, bilateral Cerebrovascular accident, embolic Change in mole COPD (chronic obstructive pulmonary disease) Encounter for general adult medical examination with abnormal findings FH: total knee replacement Hospital discharge follow-up Hypertension Lung mass Obesity Obesity Other and unspecified hyperlipidemia Pneumonia Pulmonary embolism Shortness of Breath Surgical History History of appendectomy History of cholecystectomy History of hysterectomy History of lobectomy of lung History of total right hip replacement Family History Family History Father Cancer Mother Cerebral aneurysm Breast cancer Sister Cancer Social History Social History Household Members: Spouse and Children Household Members Other:: 2 grandchildren Housing: House Are you a primary care asst to a significant other at home: No Do you presently have visiting nurse or other home services: No Alcohol intake: never Patient Tobacco Use Status: Former Tobacco user Quit Date: 10+ years ago Tobacco use type: Cigarette Years Smoked: 50 years e-Cigarette/Vaping Use: Never Used service: No Current occupational status: retired Cognitive needs: No Hearing needs: No Vision needs: Yes Physical Exam ED Vital Signs: Vital Signs - 24 hr 08/24/22 08:23 08/24/22 08:20 08/24/22 10:01 Temperature 99.7 F 98.2 F Pulse Rate 101 H 102 H 101 H Respiratory Rate 22 H 18 26 H Blood Pressure 132/48 L 138/67 Pulse Oximetry 98 94 Oxygen Delivery Method Room Air Room Air Oxygen Flow Rate 08/24/22 14:00 08/24/22 14:36 08/24/22 15:52 Temperature 98.1 F 97.8 F Pulse Rate 101 H 110 H 92 Respiratory Rate 34 H 16 Blood Pressure 138/67 141/56 H 130/57 L Pulse Oximetry 94 97 97 Oxygen Delivery Method Nasal Cannula Room Air Oxygen Flow Rate 2 3 BMI result Body Mass Index 34.0 Const General: cooperative, no acute distress, alert and awake Nutritional Appearance: well nourished Orientation/consciousness: patient oriented x3 Limitations: no limitations HENMT Head: Yes normal to inspection and Yes atraumatic Ears: hearing grossly normal bilaterally and external ears normal General nose exam: Normal external nose present, no nasal discharge noted and no epistaxis Face and sinus: Yes normal facial exam, No abrasion and No laceration Mouth: Normal oral and palatal mucosa present, no drooling and no muffled voice Eyes General: appearance normal, both eyes and all related structures Periorbital: periorbital findings normal Eyelids: Yes eyelids normal Conjunctivae: conjunctivae normal Pupils: Equal, round and reactive pupils present EOM: EOMs intact bilaterally Neck Neck: Yes normal visual inspection, Yes full ROM and Yes no lymphadenopathy Chest Chest palpation & inspection: normal inspection of the chest Resp Effort & Inspection: normal respiratory effort and able to speak in complete sentences Auscultation: rhonchi throughout Cardio Rate: tachycardic Rhythm: regular rhythm GI Inspection: Yes normal to inspection Neuro General: patient oriented x3 and moves all extremities Cranial nerves: Yes Equal, round and reactive pupils present Cognition (Neuro): normal cognition Motor exam (neuro): 5/5 motor strength present throughout Sensory Exam: Normal double simultaneous stimulation for sensation Coordination: [id number] test normal Extrem General: Yes normal to inspection, Yes full ROM and Yes capillary refill normal Psych Appearance: grossly normal Mental Status: mental status grossly normal Affect: normal affect Attitude: cooperative Thought process: Normal thought process present Thought content: Normal thought content present Insight: Good insight present (Psych) Medical Decision Making MDM Narrative Medical decision making narrative: Patient is an 86 year old assigned female at with a history of HTN, COPD, lung cancer with possible mets to the liver and spine, and PE presenting to the emergency department today with persistent shortness of breath. Patient's physical exam showed an individual that was obviously short of breath and tachycardic. Patient's blood work was unremarkable. Patient's EKG showed tachycardia with PACs. Patient's CTA of the chest showed a mass in the left upper lobe of the lung and a lucent lesion in the T2 body that could represent metastatic lesions. Patient's clinical presentation is most consistent with persistent COVID symptoms and worsening lung cancer. Patient does not de-saturate while in the department and does not meet admission criteria at this time. I believe the patient would be best suited for short term rehab vs. care home. I explained my physical exam findings as well as all test results to the patient and the patient's . I answered all questions asked by the patient and the patient's . Patient is agreeable with being placed in short term rehab for continued symptomatic treatment including oxygen and breathing treatments. Patient to be placed by case management. Medical Records Medical records reviewed: Yes I reviewed the patient's medical records. Lab Data Lab results reviewed: Yes I reviewed the patient's lab results. Result diagrams: 08/24/22 09:07 08/24/22 09:07 Labs: Lab Results 08/24/22 08/24/22 08/24/22 Range/Units 08:32 09:07 09:07 WBC 10.9 H (4.8-10.8) X10*3/uL RBC 4.03 L (4.20-5.50) X10*6/uL Hgb 11.9 L (12.0-16.0) g/dl Hct 36.8 L (37.0-47.0) % MCV 91.3 (80.0-98.0) fL MCH 29.5 (27.0-33.0) pg MCHC 32.3 (31.0-35.0) g/dl RDW 17.7 H (11.0-16.0) % Plt Count 202 D (160-400) X10*3/uL MPV 9.9 (9.4-12.3) fL Immature Gran % (Auto) 0.9 H (0.0-0.4) % Neut % (Auto) 83.3 H (45-73) % Lymph % (Auto) 10.1 L (20-40) % [place] % (Auto) 5.3 (2-11) % Eos % (Auto) 0.2 (0-4) % Baso % (Auto) 0.2 (0-2) % Lymph # (Auto) 1.1 L (1.2-4.9) X10*3/uL [place] # (Auto) 0.6 (0.1-1.2) X10*3/uL Eos # (Auto) 0.0 (0.0-0.4) X10*3/uL Baso # (Auto) 0.0 (0.0-0.2) X10*3/uL Abs Immat Gran (auto) 0.10 H (0.00-0.03) X10*3/uL Absolute Neuts (auto) 9.1 H (2.0-8.3) x10*3/uL Absolute Nucleated RBC 0.000 (0.0-0.012) X10*3/uL Nucleated RBC % (auto) 0.0 (0.0-0.2) /100WBC VBG pH (7.32-7.43) VBG pCO2 mmHg VBG pO2 mmHg VBG HCO3 (22-26) mmol/L VBG O2 Saturation % VBG Base Excess mmol/L Sodium 138 (135-145) mmol/L Potassium 4.2 (3.3-5.1) mmol/L Chloride 99 (96-108) mmol/L Carbon Dioxide 24 (22-29) mmol/L Anion Gap 19 (12-20) BUN 28 H (9-16) mg/dL Creatinine 0.92 (0.5-1.4) mg/dL Estim Creat Clear Calc 45.9 Estimated GFR 58 Random Glucose 88 (60-115) mg/dL Calcium 9.1 (8.4-10.2) mg/dL Magnesium 1.8 (1.6-2.6) mg/dL Total Bilirubin 2.5 H (0.0-1.0) mg/dL AST 124 H (5-31) U/L ALT 155 H (0-31) U/L Alkaline Phosphatase 396 H D (39-117) U/L Troponin I High Sens (<3.5-17.0) ng/L Total Protein 5.7 L (6.5-8.0) g/dL Albumin 3.4 L (3.5-5.0) g/dL COVID-19 (YULISSA) Negative (Negative) COVID-19 Clin Com See Note 08/24/22 08/24/22 Range/Units 09:07 09:09 WBC (4.8-10.8) X10*3/uL RBC (4.20-5.50) X10*6/uL Hgb (12.0-16.0) g/dl Hct (37.0-47.0) % MCV (80.0-98.0) fL MCH (27.0-33.0) pg MCHC (31.0-35.0) g/dl RDW (11.0-16.0) % Plt Count (160-400) X10*3/uL MPV (9.4-12.3) fL Immature Gran % (Auto) (0.0-0.4) % Neut % (Auto) (45-73) % Lymph % (Auto) (20-40) % [place] % (Auto) (2-11) % Eos % (Auto) (0-4) % Baso % (Auto) (0-2) % Lymph # (Auto) (1.2-4.9) X10*3/uL [place] # (Auto) (0.1-1.2) X10*3/uL Eos # (Auto) (0.0-0.4) X10*3/uL Baso # (Auto) (0.0-0.2) X10*3/uL Abs Immat Gran (auto) (0.00-0.03) X10*3/uL Absolute Neuts (auto) (2.0-8.3) x10*3/uL Absolute Nucleated RBC (0.0-0.012) X10*3/uL Nucleated RBC % (auto) (0.0-0.2) /100WBC VBG pH 7.39 (7.32-7.43) VBG pCO2 36 mmHg VBG pO2 41 mmHg VBG HCO3 22 (22-26) mmol/L VBG O2 Saturation 63.0 % VBG Base Excess -2.1 mmol/L Sodium (135-145) mmol/L Potassium (3.3-5.1) mmol/L Chloride (96-108) mmol/L Carbon Dioxide (22-29) mmol/L Anion Gap (12-20) BUN (9-16) mg/dL Creatinine (0.5-1.4) mg/dL Estim Creat Clear Calc Estimated GFR Random Glucose (60-115) mg/dL Calcium (8.4-10.2) mg/dL Magnesium (1.6-2.6) mg/dL Total Bilirubin (0.0-1.0) mg/dL AST (5-31) U/L ALT (0-31) U/L Alkaline Phosphatase (39-117) U/L Troponin I High Sens 12.3 D (<3.5-17.0) ng/L Total Protein (6.5-8.0) g/dL Albumin (3.5-5.0) g/dL COVID-19 (YULISSA) (Negative) COVID-19 Clin Com Imaging Data CT scan - chest: Attestation: I personally reviewed and interpreted this imaging study as follows: My impression: Mass in the left lung with possible mets to the T spine. Radiologist's impression: EXAMINATION: CT ANGIOGRAM CHEST WITH AND WITHOUT CONTRAST (CT PULMONARY ANGIOGRAM FOR PE) CLINICAL INFORMATION: Shortness of breath. History of pulmonary embolism. COMPARISON: Multiple priors with the last chest CTA of 08/10/2022.? TECHNIQUE: Prior to contrast administration, noncontrast localization images were obtained. Subsequently, multidetector volumetric imaging was performed from the thoracic inlet to below the diaphragms following the administration of 65 mL Omnipaque 350 intravenous contrast. No contrast reaction reported. Sagittal, coronal, and MIP oblique sagittal reformatted images were obtained on the CT workstation, uploaded to PACS, and reviewed. This CT examination was performed using dose optimization techniques as appropriate, variously including the following: *Automated exposure control *Adjustment of mA and/or kV according to patient size (this includes techniques or standardized protocols for targeted exams where dose is matched to indication/reason for exam; i.e. extremities or head) *Use of iterative reconstruction technique Total exam dose-length product 428 mGy-cm. FINDINGS: QUALITY OF STUDY/CONTRAST BOLUS: Satisfactory. PULMONARY ARTERIES: No central or segmental pulmonary emboli.? THORACIC AORTA: No aneurysm or dissection. The descending thoracic aorta is mildly ectatic measuring 3.2 cm in maximum AP diameter. Scattered calcific atherosclerosis of the aorta. CORONARY CALCIFICATIONS: Moderate coronary calcifications are noted. LUNGS: Postsurgical changes of right upper lobectomy are again noted. A 0.5 x 1.0 cm opacity along the fissure in the right upper lung zone (series 8, image 135) is a stable finding since the previous CT scan of 08/16/2019. There is moderate interval improvement in the patchy airspace opacities in the left upper lobe with persistent moderate disease and cystic changes. The consolidative mass-like opacity in this region extends into the adjacent mediastinum encasing the left upper lobe pulmonary artery which, however, is otherwise patent. Moderate interval improvement in the patchy airspace opacities in the left upper lobe compared to previous CT of 08/10/2022. The consolidative mass-like opacity from this region extends into the adjacent mediastinum encasing the left upper lobe bronchus. The left upper lobe lobar bronchus is not seen. The mild slight component in the left-sided mediastinum measures approximately 5.2 x 5.0 cm (series 8, image 188). PLEURA: No pleural effusion or pneumothorax. MEDIASTINUM: Normal heart size. No pericardial effusion. Left superior mediastinal lymph node measures 2.3 x 2.5 cm (series 8, image 9), not significantly changed compared to the last study. A few adjacent left-sided anterior lateral mediastinal lymph nodes are again noted, measuring 1.7 x 1.9 cm and 1.3 cm (series 8, image 138, 118). No right hilar adenopathy is noted. No evidence of septal bowing or right heart strain. There is narrowing of the trachea and mainstem bronchi in the AP dimension suggesting tracheobronchomalacia. Minimal low-density material is noted in the left mainstem bronchus, likely mucus secretion. CHEST WALL/AXILLAE: No axillary or internal mammary lymphadenopathy. OSSEOUS STRUCTURES: A 1.3 cm lucent lesion is noted in the T2 body. Multilevel degenerative changes in the thoracic spine. No acute osseous abnormality. UPPER ABDOMEN: Unremarkable.? No reflux of contrast into the hepatic veins to suggest elevated right heart pressures. CT/CT angio chest PE protocol IMPRESSION: 1.? No evidence of pulmonary embolism. 2.? Moderate interval improvement in the patchy airspace opacities in the left upper lobe compared to the previous CT of 08/10/2022. The consolidative mass-like opacity in this region extends into the adjacent mediastinum encasing the left upper lobe pulmonary artery and left upper lobe bronchus. The left upper lobe lobar bronchus is not seen. Given the interval improvement findings most probably represent inflammatory/infectious process possibility of malignant neoplastic process cannot be completely excluded given the masslike appearance of the mediastinal component of the process. The findings are new compared to previous CT of 12/18/2021. 3.? Stable left superior mediastinal and left anterior lateral mediastinal adenopathy is new compared to previous CT off to 09/19/2022. 4.? A 1.3 cm lucent lesion in the T2 body is nonspecific and could represent metastatic lesion, as finding is not clearly appreciated on the CT scan of 12/18/2021. ? VTE: Negative Dictated By: Daniela Underwood MD Signed By: Electronically signed by Daniela Underwood MD 08/24/22 1426 ECG Data Attestation: I personally reviewed and interpreted this ECG as follows: Prior ECG tracings: available for review Interpretation: Vent. Rate: 106 BPM ? ? Atrial Rate: 106 BPM P-R Int: 208 ms? QRS Dur: 086 ms QT Int: 332 ms ? ? ? P-R-T Axes: 089 068 126 degrees QTc Int: 441 ms ? Sinus tachycardia with Premature atrial complexes Nonspecific ST and T wave abnormality Abnormal ECG When compared with ECG of 24-AUG-2022 08:33, Premature ventricular complexes are no longer Present Premature atrial complexes are now Present Nonspecific T wave abnormality, worse in Inferior leads ? DD/ [id number] Critical Care Time Critical Care Time Critical Care Time: Yes Total Critical Care Time: 30 Attestation: I spent 30 minutes of Critical Care Time with this patient. This does not include time spent on separately reported billable procedures. Discharge Plan Discharge Clinical Impression: Chronic shortness of breath, Lung cancer Patient Disposition: Still a Patient Prescriptions: No Action Breo Ellipta 200-25 mcg/dose blister with device 1 inh PO DAILY 90 Days Qty: 180 3RF Praluent Pen 75 mg/mL pen injector 75 mg subcut Q2W 90 Days Qty: 7 3RF albuterol sulfate 90 mcg/actuation Hfa Aerosol Inhaler 2 puff INHALATION Q6H PRN (Reason: Wheezing) prednisone 20 mg Tablet 40 mg PO DAILY Qty: 10 0RF dextromethorphan-guaifenesin 10-100 mg/5 mL Syrup 5 ml PO Q4H PRN (Reason: cough) Qty: 237 0RF oxycodone 5 mg tablet 5 mg PO Q6H PRN (Reason: sob, mod pain) Qty: 30 0RF Rx Instructions: Partial Fill upon patient request. cholecalciferol (vitamin D3) 25 mcg (1,000 unit) capsule 25 mcg PO DAILY ascorbate calcium (vitamin C) 500 mg tablet 500 mg PO DAILY aspirin 81 mg tablet,delayed release (DR/EC) 81 mg PO DAILY Print Language: Micronesian
--- NOTE | 2022-08-24 08:09 | ECG_ITS ---
Test Reason : sob Blood Pressure : / mmHG Vent. Rate : 106 BPM Atrial Rate : 106 BPM P-R Int : 204 ms QRS Dur : 086 ms QT Int : 340 ms P-R-T Axes : 095 056 155 degrees QTc Int : 451 ms Sinus tachycardia with occasional Premature ventricular complexes Nonspecific ST and T wave abnormality Abnormal ECG When compared with ECG of 10-AUG-2022 09:43, Premature ventricular complexes are now Present Premature atrial complexes are no longer Present Referred By: Ricarda Duckworth Electronically Signed By:JOSE NÚÑEZ MD
[2022-08-24] MEDS: Albuterol/Iprat 2.5/0.5MG 3 ML AMPUL.NEB INHALE (08:20)
--- NOTE | 2022-08-24 08:27 | PC.NURSE ---
pt a/o x 4 c/o sob no hermes note4d. lungs - rhonchi all lobes. speaks in full sentences skin pink warm dry. heart sound - irregular (101). ABD - obese, soft n/t, bs x+4 quads. l lower leg 1+ pitting edema noted. pt speaks in full sentences. at bedside. pt aware of plan of care.
[2022-08-24 08:54] LABS: COVID-19 Test Negative (Negative); IDNOW Serial# 55D5AD1C
[2022-08-24 09:15] LABS: MANUAL DIFF FLAG NO
[2022-08-24 09:17] LABS: Basophils Percent Auto 0.2 % (0-2); Eosinophils Percent Auto 0.2 % (0-4); Hematocrit 36.8 % (37.0-47.0); Hemoglobin 11.9 g/dl (12.0-16.0); Imm Gran Pct Auto 0.9 % (0.0-0.4); Lymphocytes Absolute Auto 1.1 X10*3/uL (1.2-4.9); Lymphocytes Percent Auto 10.1 % (20-40); Mean Corpuscular HGB Conc 32.3 g/dl (31.0-35.0); Mean Corpuscular Hemoglobin 29.5 pg (27.0-33.0); Mean Corpuscular Volume 91.3 fL (80.0-98.0); Mean Platelet Volume 9.9 fL (9.4-12.3); Monocytes Absolute Auto 0.6 X10*3/uL (0.1-1.2); Monocytes Percent Auto 5.3 % (2-11); Neutrophils Absolute Auto 9.1 x10*3/uL (2.0-8.3); Neutrophils Percent Auto 83.3 % (45-73); Platelet Count 202 X10*3/uL (160-400); Red Blood Count 4.03 X10*6/uL (4.20-5.50); Red Cell Distribution Width 17.7 % (11.0-16.0); White Blood Count 10.9 X10*3/uL (4.8-10.8)
[2022-08-24] MEDS: methylPREDNISolone Sod Succ 125 MG/2 ML VIAL 60 MG IVPUSH (09:24)
[2022-08-24 09:29] LABS: VBG Base Excess -2.1 mmol/L; VBG HCO3 22 mmol/L (22-26); VBG pCO2 36 mmHg; VBG pH 7.39 (7.32-7.43); VBG pO2 41 mmHg
[2022-08-24 09:33] LABS: Alanine Aminotransferase 155 U/L (0-31); Albumin Level 3.4 g/dL (3.5-5.0); Alkaline Phosphatase 396 U/L (39-117); Anion Gap 19 (12-20); Aspartate Amino Transferase 124 U/L (5-31); Bilirubin Total 2.5 mg/dL (0.0-1.0); Blood Urea Nitrogen 28 mg/dL (9-16); Calcium 9.1 mg/dL (8.4-10.2); Carbon Dioxide 24 mmol/L (22-29); Chloride 99 mmol/L (96-108); Creatinine Clr Calc Pharmacy 45.9; Estimated Glomerular Filt Rate 58; Glucose Random 88 mg/dL (60-115); Magnesium 1.8 mg/dL (1.6-2.6); Potassium 4.2 mmol/L (3.3-5.1); Sodium 138 mmol/L (135-145); Total Protein 5.7 g/dL (6.5-8.0)
[2022-08-24 09:35] LABS: Troponin-I High Sensitivity 12.3 ng/L (<3.5-17.0)
[2022-08-24 09:38] LABS: Venous Blood Gas Refer to POC result
[2022-08-24] MEDS: iohexoL 350 MG/ML 100 ML INFUS..BTL 65 ML IV (12:13)
[2022-08-24] MEDS: Morphine Sulfate 2 MG/ML CARTRIDGE 1 MG IVPUSH (14:36)
--- NOTE | 2022-08-24 14:37 | ECG_ITS ---
Test Reason : REPEAT Blood Pressure : / mmHG Vent. Rate : 106 BPM Atrial Rate : 106 BPM P-R Int : 208 ms QRS Dur : 086 ms QT Int : 332 ms P-R-T Axes : 089 068 126 degrees QTc Int : 441 ms Sinus tachycardia with Premature atrial complexes Nonspecific ST and T wave abnormality Abnormal ECG When compared with ECG of 24-AUG-2022 08:33, Premature ventricular complexes are no longer Present Premature atrial complexes are now Present Referred By: Ricarda Duckworth Electronically Signed By:JOSE NÚÑEZ MD
--- NOTE | 2022-08-24 14:39 | PC.NURSE ---
pt stood from commode to got into bed heart rate 158, once pt was settled into bed hr was 112. mlp aware (parth).
--- NOTE | 2022-08-24 15:10 | MHC.CM.ED ---
Received case management consult from Ricarda DURAN. Patient came to the ER due to shortness of breath. Patient was discharged from [facility] on 08/17 with [facility]. Work up shows worsening lung cancer with mets to spine and liver. Physical therapy eval completed. Short term rehab is recommended. Met with patient and in regards to discharge planning. Patient lives with and is active with [facility]. HCP verified to be on file. Patient received 3 Pfizer vaccines. List of facilities contracted with patient's insurance provided. Patient and will look at the list and provide 2 facility choices to case management. Continue to monitor for d/c needs.
--- NOTE | 2022-08-24 15:37 | PHA.MEDREC ---
Pharmacy Consult ? Medication Reconciliation Pharmacy has completed the medication reconciliation. Used a list from [facility].
--- NOTE | 2022-08-24 15:49 | PC.NURSE ---
Pt o2 sat 89% on 2L nc. O2 increased to 3L. Current O2 sat 96%. RR 27. Pt reports back pain 08/09. Pt also reports feeling anxious about new cancer diagnosis. Verbal reassurance provided. Current O2 sat 97% on 3L nc RR 18. Will continue to monitor pt.
--- NOTE | 2022-08-24 16:48 | MHC.CM.ED ---
Pt and requesting [facility] as first choice for [facility] and then [facility]. Referrals placed. [facility] has no bed. [facility] will assess for bed availability on 08/15. Pt has [facility], so authorization can take 24-48 hours. Will obtain hospital bed for pt comfort.
--- NOTE | 2022-08-24 18:54 | PC.NURSE ---
Pt aox4. Reports back pain 07/10. Eating dinner at this time in no apparent distress. Will continue to monitor.
--- NOTE | 2022-08-24 23:53 | PC.NURSE ---
pt reporting new onset abd pain, charge nurse in ED notified, will talk to ED providers.
[2022-08-25] VITALS (8 sets, daily range): BP systolic 143–153; BP diastolic 69–80; PULSE 59–105; RESP 16–24; TEMP 35.8–37; O2SAT 95–98; BMI 34.0
--- NOTE | 2022-08-25 05:12 | PC.NURSE ---
Pt requesting to use bedside commode, increased SOB with exertion
[2022-08-25] MEDS: Morphine Sulfate 2 MG/ML CARTRIDGE 1 MG IVPUSH (09:27)
--- NOTE | 2022-08-25 09:34 | MHC.CM.ED ---
Patient remains in ER overflow. Jus Thu is in the process of obtaining insurance auth. Continue to monitor for d/c needs.
--- NOTE | 2022-08-25 10:28 | MHC.CM.ED ---
Received notification from Joselin STALEY that patient will be admitted to the hospital. Jus Andino made aware. Continue to monitor for d/c needs.
[2022-08-25] MEDS: Albuterol/Iprat 2.5/0.5MG 3 ML AMPUL.NEB INHALE ×2 (10:59→19:14)
--- NOTE | 2022-08-25 13:09 | P.HPHOSP_ITS ---
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 She was initially diagnosed with COVID-19 on July 12 with persistence of symptoms and was not admitted August 10 again positive for COVID-19 and treated with IV steroids, azithromycin, ceftriaxone, and DuoNebs. She was placed on supplemental oxygen and was supposed to be placed into rehab setting with order for home O2 but states this does not occur. States shortness of breath had been worsening prompting her return to the ED. Patient also had recent biopsy the liver which showed small cell carcinoma with history of small-cell lung cancer status post right lower lobectomy. She does follow with Dr. Pierce in Oncology. She denies any fevers, chills, rhinorrhea, nasal congestion, sore throat, lightheadedness, abdominal pain, nausea, vomiting, blurred vision, urinary symptoms, or chest pain. In the ED, EKG showed sinus tachycardia with PACs, HR 106. CTA chest was negative for pulmonary embolism. Did show moderate interval improvement in patchy airspace o pacities in the left upper lobe compared to prior. There is a consolidative masslike opacity in the region extending into the adjacent mediastinum encasing the left upper lobe pulmonary artery and left upper lobe bronchus consistent with inflammatory versus infectious process possibly a malignant neoplastic origin. There is also stable left superior mediastinal and left anterior lateral mediastinal adenopathy as well as a 1.3 cm lucent lesion in the T2 body which is nonspecific but could represent metastatic lesion. Patient presenting symptoms were initially thought to be secondary to persistent COVID symptoms worsened by lung cancer and initially was without hypoxia and was being conside red for short-term rehab versus care home. However this morning, patient developed tachypneic with respiratory rate up to 30 requiring 2 L supplemental oxygen to maintain oximetry over 90%. She is also noted to have diffuse wheezing and was given DuoNeb and 60 mg IV Solu-Medrol. As result, patient is being recommended for admission for COPD exacerbation and acute hypoxemic respiratory failure in the setting of metastatic small cell lung cancer. <RENEE Ellison - Last Filed: 08/31/22 11:05> Review of Systems 2 Review of Systems: General: No fevers, malaise, unintentional weight loss HEENT: NO blurred vision, diplopia, sore throat, runny nose Cardiovascular: No chest pain, palpitations, or leg edema Respiratory:+sob, wheezing, +small cell lung cancer. No cough GI: +upper abd pain. 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 Carotid stenosis, bilateral Cerebrovascular accident, embolic Change in mole COPD (chronic obstructive pulmonary disease) Encounter for general adult medical examination with abnormal findings FH: total knee replacement Hospital discharge follow-up Hypertension Lung mass Metastases to the liver Obesity Obesity Other and unspecified hyperlipidemia Pneumonia Pulmonary embolism Shortness of Breath <RENEE Ellison - Last Filed: 08/31/22 11:05> Family History: Family History Father Cancer Mother Cerebral aneurysm Breast cancer Sister Cancer <RENEE Ellison - Last Filed: 08/31/22 11:05> Surgical History: Surgical History History of appendectomy History of cholecystectomy History of hysterectomy History of lobectomy of lung History of total right hip replacement <RENEE Ellison - Last Filed: 08/31/22 11:05> Social History: Social History (Updated 08/25/22 @ 19:11 by Roberto Bonilla RN) Household Members: Spouse Household Members Other:: 2 grandchildren Housing: House Are you a primary technical healthcare consultant to a significant other at home: No Do you presently have visiting nurse or other home services: Yes Alcohol intake: never Patient Tobacco Use Status: Former Tobacco user Quit Date: 10+ years ago Tobacco use type: Cigarette Years Smoked: 50 years e-Cigarette/Vaping Use: Never Used service: No Current occupational status: retired and disabled Cognitive needs: No Hearing needs: No Vision needs: Yes <RENEE Ellison - Last Filed: 08/31/22 11:05> Meds Allergies/Adverse reactions: Allergies Allergy/AdvReac Type Severity Reaction Status Date / Time [id number] Reductase Allergy Mild MENTAL Verified 08/10/22 08:23 Inhibitor CHANGES [[id number] REDUCTASE INHIBITOR] rosuvastatin [Crestor] Allergy Unknown weakness,muscle Verified 08/10/22 08:23 aches <RENEE Ellison - Last Filed: 08/31/22 11:05> Active Medications: Current Medications Pharmacy Consult (Consult Rx Perform Med Rec) 1 each MISCELLANE ONCE PRN PRN Reason: Consult order <RENEE Ellison - Last Filed: 08/31/22 11:05> Home medications: Home Medications Medication Instructions Recorded Confirmed Last Taken Type aspirin 81 mg tablet,delayed 81 mg PO DAILY 09/09/20 08/24/22 08/10/22 History release ascorbate calcium (vitamin C) 500 500 mg PO DAILY 09/16/20 08/24/22 08/10/22 History mg tablet cholecalciferol (vitamin D3) 25 25 mcg PO DAILY 09/16/20 08/24/22 08/10/22 History mcg (1,000 unit) capsule albuterol sulfate 90 mcg/actuation 2 puff inhalation Q6H PRN Wheezing 08/10/22 08/24/22 Unknown History aerosol inhaler <RENEE Ellison - Last Filed: 08/31/22 11:05> Physical Exam Vital Signs and Narrative: Vital Signs: Last Vital Signs Temp 96.5 F L 08/25/22 08:24 Pulse 88 08/25/22 10:59 Resp 18 08/25/22 10:59 BP 145/77 H 08/25/22 08:24 Pulse Ox 97 08/25/22 08:24 O2 Del Method 08/25/22 08:24 O2 Flow Rate 2 10/26/22 08:24 BMI result Body Mass Index 34.0 <RENEE Ellison - Last Filed: 08/31/22 11:05> Constitutional - Awake and Alert, Mild respiratory distress Eyes - PERRLA, EOMI Cardiovascular - S1S2, RRR, No edema Respiratory - Diffuse wheezing bilaterally with increased work of breathing and speaking in short phrases. Normal lung expansion Gastrointestinal -upper abdominal pain with mild soft distention. ND; +BS; No rebound or guarding Extremities - no calf tenderness bilaterally, no swelling Musculoskeletal - Midline ttp over midline spine and left flank Skin - Warm/Dry Neurological - Alert & oriented x3, CN II-XII in tact Psychological - Appropriate affect <RENEE Ellison - Last Filed: 08/31/22 11:05> Results Labs CBC and Chem 7: : 08/24/22 09:07 08/27/22 06:03 <RENEE Ellison - Last Filed: 08/31/22 11:05> Imaging Radiologist's Impressions: Impressions Chest CTA 08/24/22 12:13 IMPRESSION: 1. No evidence of pulmonary embolism. 2. Moderate interval improvement in the patchy airspace opacities in the left upper lobe compared to the previous CT of 08/10/2022. The consolidative mass-like opacity in this region extends into the adjacent mediastinum encasing the left upper lobe pulmonary artery and left upper lobe bronchus. The left upper lobe lobar bronchus is not seen. Given the interval improvement findings most probably represent inflammatory/infectious process possibility of malignant neoplastic process cannot be completely excluded given the masslike appearance of the mediastinal component of the process. The findings are new compared to previous CT of 12/18/2021. 3. Stable left superior mediastinal and left anterior lateral mediastinal adenopathy is new compared to previous CT off to 09/19/2022. 4. A 1.3 cm lucent lesion in the T2 body is nonspecific and could represent metastatic lesion, as finding is not clearly appreciated on the CT scan of 12/18/2021. VTE: Negative Abdomen/Pelvis CT 08/25/22 01:10 IMPRESSION: 1. No acute finding of the abdomen or pelvis. 2. Redemonstration of multiple hypoattenuating masses throughout the liver, similar to prior, again consistent with metastatic disease. 3. Unchanged abdominal aortic aneurysm measuring 3.2 cm. Recommend follow-up every 3 years. Fleischner guidelines were followed. <RENEE Ellison - Last Filed: 08/31/22 11:05> Assessment and Plan (1) Metastases to the liver: Status: Acute <RENEE Ellison - Last Filed: 08/31/22 11:05> (2) Lung cancer: Status: Acute <RENEE Ellison - Last Filed: 08/31/22 11:05> (3) Hypoxia: Status: Acute <RENEE Ellison - Last Filed: 08/31/22 11:05> (4) Small cell lung cancer: Status: Acute <RENEE Ellison - Last Filed: 08/31/22 11:05> (5) Liver mass: Status: Acute <RENEE Ellison - Last Filed: 08/31/22 11:05> (6) COPD (chronic obstructive pulmonary disease): Status: Acute <RENEE Ellison - Last Filed: 08/31/22 11:05> (7) Acute respiratory failure: Status: Acute <RENEE Ellison - Last Filed: 08/31/22 11:05> 86 years old lady with you of 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 #Acute hypoxemic respiratory failure secondary to COPD exarbation -Sudden onset development this mornign. -CTA chest negative for PE with interval resolution of consolidatied mass-like opacity with recent treatment inpt for pneumonia -Continue supplemental O2 to maintian O2 sats >92% #Acute COPD exacerbation -Negative for COVID-19. 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 Reviewed MOLST form with patient and . Based on diagnosis with limited change of full recovery expected with decreased quality of life, patient desires hospice and to be kept comfortable but is agreeable to treating current COPD exacerbation. Case management consult placed -Pain management with pain scale #Hyperbilirubinemia with elevated LFTs -U/S RUQ ordered to rule out stricture/obstruction causing acute increase -Bili 2.5. Initial tachycardia and tachypnea secondary to increased work of breathing/COPD exacerbation. Tachycardia has resolved. Leukocytosis is chronic and trending down following steroid use. No severe sepsis. -Follow CMP #Pain RLE -Venous duplex ordered #HLD- -continue home meds #History PE -Completed xarelto 20mg. Now on aspirin. Continue #HTN- controlled DVT prophylaxis- lovenox DNR/DNI- desires hospice. Case management consult placed Pt requires inpt stay at least 2 midnights due to copd exacerbation with acute hyoxemic respiratory failure requiring IV steroids and supplemental oxygen with close monitoring for further respiratory decline. <RENEE Ellison - Last Filed: 08/31/22 11:05> Quality Stroke Does the patient have a stroke diagnosis?: No <Kacey Camacho MD - Last Filed: 08/26/22 07:53> VTE Prior VTE?: No <Kacey Camacho MD - Last Filed: 08/26/22 07:53> VTE Risk Level:: Medical - moderate - high <RENEE Ellison - Last Filed: 08/31/22 11:05> VTE Device Contraindication: Treatment Not Indicated <RENEE Ellison - Last Filed: 08/31/22 11:05> VTE Drug Contraindication: N/A - Med Ordered <RENEE Ellison - Last Filed: 08/31/22 11:05>
[2022-08-25] MEDS: methylPREDNISolone Sod Succ 125 MG/2 ML VIAL 60 MG IVPUSH (14:16)
--- NOTE | 2022-08-25 15:12 | PC.NURSE ---
REMAINS ON 02 OOB TO COMMODE, OOB TO CHAIR. STATES HAVING GENERALIZED PAIN. RESP TREATMENTS AND STEROIDS FOR WHEEZING. TOLERATING PO NEEDS BEING MET
--- NOTE | 2022-08-25 15:23 | MHC.CM.PN ---
CM met with Patient and her at bedside and addressed IMM with them, providing them with the original and placing a copy on the chart. Patient lives in a house with her and she has been bedbound X 18 years r/t MS. Home/resume [address] hours/week is the goal and CM has initiated and will follow for dc planning. PCP is Dr. Johnson Arzate and Patient has received [employer] vax x3.
--- NOTE | 2022-08-25 15:33 | MHC.CM.PN ---
15:27 CM ASSESSMENT WAS DOCUMENTED IN THE WRONG CHART!!
--- NOTE | 2022-08-25 16:31 | PC.NURSE ---
ASSUMED CARE OF PT AT 15 00 ,PATIENT SITTING IN RECLINER WATCHING TELEVISION ,VS TAKEN .
[2022-08-25] MEDS: 0.9 % Sodium Chloride Flush 3 ML SYRINGE IVFLUSH ×2 (19:14→22:46)
[2022-08-25] MEDS: Albuterol Sulfate (0.083%) 2.5 MG/3 ML VIAL.NEB INHALE (22:08)
[2022-08-25] MEDS: methylPREDNISolone Sod Succ 40 MG/ML VIAL IVPUSH (22:41)
[2022-08-25] MEDS: HYDROmorphone HCl 0.5 MG/0.5 ML SYRINGE 0.25 MG IVPUSH (22:41)
[2022-08-26] VITALS (11 sets, daily range): BP systolic 127–141; BP diastolic 60–79; PULSE 54–112; RESP 18–22; TEMP 36–36.6; O2SAT 97–98
[2022-08-26] MEDS: Albuterol/Iprat 2.5/0.5MG 3 ML AMPUL.NEB INHALE ×4 (04:52→19:27)
[2022-08-26 07:21] LABS: Alanine Aminotransferase 143 U/L (0-31); Albumin Level 3.1 g/dL (3.5-5.0); Alkaline Phosphatase 370 U/L (39-117); Anion Gap 16 (12-20); Aspartate Amino Transferase 112 U/L (5-31); Bilirubin Total 1.8 mg/dL (0.0-1.0); Blood Urea Nitrogen 27 mg/dL (9-16); Calcium 8.9 mg/dL (8.4-10.2); Carbon Dioxide 23 mmol/L (22-29); Chloride 101 mmol/L (96-108); Creatinine Clr Calc Pharmacy 52.1; Estimated Glomerular Filt Rate > 60; Glucose Random 157 mg/dL (60-115); Potassium 4.3 mmol/L (3.3-5.1); Sodium 136 mmol/L (135-145); Total Protein 5.2 g/dL (6.5-8.0)
[2022-08-26] MEDS: Ascorbic Acid 500 MG TABLET PO (11:13)
[2022-08-26] MEDS: methylPREDNISolone Sod Succ 40 MG/ML VIAL IVPUSH ×2 (11:13→21:02)
[2022-08-26] MEDS: Cholecalciferol (Vitamin D3) 25 MCG TABLET PO (11:13)
[2022-08-26] MEDS: 0.9 % Sodium Chloride Flush 3 ML SYRINGE IVFLUSH ×3 (11:13→21:02)
[2022-08-26] MEDS: Aspirin Enteric Coated 81 MG TABLET.DR PO (11:14)
--- NOTE | 2022-08-26 11:35 | MHC.CM.PN ---
Addendum entered by Angélica Hooks 08/26/22 11:36: (CONTINUED NOTE) LAKEISHA @ [phone], Patient's is the best Contact. CM has made a referral to [facility], requesting a Hospice Informational and that Patient's , Arik be contacted for this meeting to be arranged. CM will follow. Original Note: Per [facility] discussion, a Hospice Informational has been requested. Per Patient's Daughter
[2022-08-26] MEDS: oxyCODONE HCl Immed Release 5 MG TABLET 2.5 MG PO (11:52)
--- NOTE | 2022-08-26 13:03 | P.PNIM_ITS ---
Subjective Subjective Date of Service: 08/26/22 Interval History: Patient feeling tired, complaining of back pain as well as pain across the chest radiating from right to left, even eating food makes her tired , also feels short of breath with minimal activity even with eating, denies fever chills, no nausea no vomiting, no abdominal pain. Review of Systems [facility] no headache no dizziness General no fevers no chills no urgency, no frequency Review of Systems: Yes all other systems are reviewed and are negative Physical Exam Vital Signs: Vital Signs: Last Vital Signs Temp 97.8 F 08/26/22 11:33 Pulse 58 08/26/22 11:33 Resp 20 08/26/22 11:33 BP 134/62 08/26/22 11:33 Pulse Ox 97 08/26/22 11:33 O2 Del Method 08/26/22 11:33 O2 Flow Rate 4 08/26/22 11:33 BMI result Body Mass Index 34.0 Const: Other: General awake alert, mild respiratory distress. Anicteric sclera Neck supple no JVD. CVS regular rate rhythm, Respiratory bilateral rhonchi, noted to be short of breath talking no use of accessory muscles Gastrointestinal abdomen soft, nontender, bowel sounds audible Extremities bilateral pitting edema . Neuro nonfocal Skin no rash Objective Data Active Medications Acetaminophen (Acetaminophen 325 Mg Tablet) 650 mg PO Q6H PRN PRN Reason: Pain, Mild (Pain Scale 1-3) Albuterol Sulfate (Albuterol Sulfate (0.083%) 2.5 Mg/3 Ml Vial.Neb) 2.5 mg INHALE Q2H PRN PRN Reason: Shortness of Breath/Wheezing Last Admin: 08/25/22 22:08 Dose: 2.5 mg Documented By: BRAD Albuterol/Ipratropium (Albuterol/Iprat 2.5/0.5mg 3 Ml Ampul.Neb) 3 ml INHALE RQ4H WHILE AWAKE [facility] Last Admin: 08/26/22 11:28 Dose: 3 ml Documented By: ANJEL Ascorbic Acid (Ascorbic Acid 500 Mg Tablet) 500 mg PO DAILY [facility] Last Admin: 08/26/22 11:13 Dose: 500 mg Documented By: EDITH Aspirin (Aspirin Enteric Coated 81 Mg Tablet.) 81 mg PO DAILY [facility] Last Admin: 08/26/22 11:14 Dose: 81 mg Documented By: EDITH Hydromorphone HCl (Hydromorphone Hcl 0.5 Mg/0.5 Ml Syringe) 0.25 mg IVPUSH Q4H PRN; Protocol PRN Reason: Pain, Severe (Pain Scale 7-10) Last Admin: 08/25/22 22:41 Dose: 0.25 mg Documented By: CHARLOTTE Methylprednisolone Sodium Succinate (Methylprednisolone Sod Succ 40 Mg/Ml Vial) 40 mg IVPUSH Q12H [facility] Last Admin: 08/26/22 11:13 Dose: 40 mg Documented By: EDITH Ondansetron HCl (Ondansetron Hcl 4 Mg/2 Ml Vial) 4 mg IVPUSH Q8H PRN PRN Reason: Nausea and Vomiting Oxycodone HCl (Oxycodone Hcl Immed Release 5 Mg Tablet) 2.5 mg PO Q6H PRN PRN Reason: Pain, Moderate (Pain Scale 4-6 Last Admin: 08/26/22 11:52 Dose: 2.5 mg Documented By: EDITH Pharmacy Consult (Consult Rx Perform Med Rec) 1 each MISCELLANE ONCE PRN PRN Reason: Consult order Sodium Chloride (0.9 % Sodium Chloride Flush 3 Ml Syringe) 3 ml IVFLUSH QSHIFT [facility] Last Admin: 08/26/22 11:13 Dose: 3 ml Documented By: EDITH Vitamin D (Cholecalciferol (Vitamin D3) 25 Mcg Tablet) 25 mcg PO DAILY [facility] Last Admin: 08/26/22 11:13 Dose: 25 mcg Documented By: EDITH Labs CBC & Chem 7: 08/24/22 09:07 08/26/22 06:17 Labs: Laboratory Results - last 24 hr 08/26/22 06:17 Anion Gap 16 Estim Creat Clear Calc 52.1 Estimated GFR > 60 Random Glucose 157 H Calcium 8.9 Total Bilirubin 1.8 H AST 112 H ALT 143 H Alkaline Phosphatase 370 H Total Protein 5.2 L Albumin 3.1 L Assessment and Plan (1) Metastases to the liver: Status: Acute (2) Lung cancer: Status: Acute (3) Hypoxia: Status: Acute (4) Liver mass: Status: Acute (5) COPD (chronic obstructive pulmonary disease): Status: Acute Plan 86 years old lady with you of 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 #Acute hypoxemic respiratory failure secondary to acute COPD exarbation/underlying lung mass -persistent sob /cough -CTA chest negative for PE with interval resolution of consolidatied mass-like opacity with recent treatment inpt for pneumonia -Negative for COVID-19. 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 Case management consult placed -Pain management will add OxyContin 10 mg b.i.d., scheduled Tylenol and as needed oxycodone #Hyperbilirubinemia with elevated LFTs -likely due to enlarged liver with large burden of hepatic metastatic says, U/S RUQ showed intra hepatic biliary ductal dilatation no obstruction -Bili 2.5. Initial tachycardia and tachypnea secondary to increased work of breathing/COPD exacerbation. Tachycardia has resolved. Leukocytosis is chronic and trending down following steroid use. No severe sepsis. -Follow CMP #Pain RLE -Venous duplex negative for DVT #History PE -Completed xarelto 20mg. Continue aspirin. #HTN- controlled not on antihypertensive DVT prophylaxis- lovenox DNR/DNI- desires hospice. Pt requires continued inpatient stay due to COPD exacerbation, on IV steroids, persistent shortness of breath, and acute pain Quality Stroke Does the patient have a stroke diagnosis?: No VTE Prior VTE?: No VTE Risk Level:: Medical - moderate - high VTE Device Contraindication: Treatment Not Indicated VTE Drug Contraindication: N/A - Med Ordered
[2022-08-26] MEDS: HYDROmorphone HCl 0.5 MG/0.5 ML SYRINGE 0.25 MG IVPUSH ×2 (13:39→22:52)
[2022-08-26] MEDS: Acetaminophen 325 MG TABLET 650 MG PO ×2 (16:03→21:00)
[2022-08-26] MEDS: oxyCODONE HCl ER 10 MG TAB.ER.12H PO (21:01)
[2022-08-27] VITALS (8 sets, daily range): BP systolic 124–173; BP diastolic 58–74; PULSE 66–114; RESP 18–20; TEMP 36.1–36.9; O2SAT 95–98
--- NOTE | 2022-08-27 03:37 | PC.NURSE ---
at 0330 pt had 16 beats of vtach while sleeping vss.
[2022-08-27 07:09] LABS: Alanine Aminotransferase 150 U/L (0-31); Alkaline Phosphatase 377 U/L (39-117); Anion Gap 19 (12-20); Aspartate Amino Transferase 112 U/L (5-31); Bilirubin Total 1.5 mg/dL (0.0-1.0); Blood Urea Nitrogen 32 mg/dL (9-16); Calcium 8.9 mg/dL (8.4-10.2); Carbon Dioxide 21 mmol/L (22-29); Chloride 102 mmol/L (96-108); Creatinine Clr Calc Pharmacy 53.5; Estimated Glomerular Filt Rate > 60; Glucose Random 130 mg/dL (60-115); Potassium 4.6 mmol/L (3.3-5.1); Sodium 137 mmol/L (135-145); Total Protein 5.3 g/dL (6.5-8.0)
[2022-08-27] MEDS: Albuterol/Iprat 2.5/0.5MG 3 ML AMPUL.NEB INHALE ×3 (07:36→15:29)
[2022-08-27] MEDS: Ascorbic Acid 500 MG TABLET PO (08:14)
[2022-08-27] MEDS: methylPREDNISolone Sod Succ 40 MG/ML VIAL IVPUSH (08:14)
[2022-08-27] MEDS: Aspirin Enteric Coated 81 MG TABLET.DR PO (08:14)
[2022-08-27] MEDS: Cholecalciferol (Vitamin D3) 25 MCG TABLET PO (08:14)
[2022-08-27] MEDS: oxyCODONE HCl ER 10 MG TAB.ER.12H PO (08:14)
[2022-08-27] MEDS: Acetaminophen 325 MG TABLET 650 MG PO ×2 (08:14→17:04)
[2022-08-27] MEDS: 0.9 % Sodium Chloride Flush 3 ML SYRINGE IVFLUSH (08:15)
--- NOTE | 2022-08-27 11:45 | MHC.CM.PN ---
Hospice Informational was held yesterday and the goal is home with Hospice. CM has let [facility] know that Patient can be dc'd to home once everything is in place on their end. CM will follow.
[2022-08-27] MEDS: HYDROmorphone HCl 0.5 MG/0.5 ML SYRINGE 0.25 MG IVPUSH (12:18)
--- NOTE | 2022-08-27 14:29 | MHC.CM.PN ---
Patient has been medically cleared for dc to home today, with Hospice. [facility] is aware of today's dc date/time. Patient will return home today at 5 PM, via [facility]. CM spoke with Patient's /HCP/Arik @ [phone] and addressed IMM with him (original will be mailed certified letter to him and a copy has been placed on the chart).
--- NOTE | 2022-08-27 14:38 | PM.DS ---
DS: Providers Provider Date of Service: 08/27/22 Date of admission: 08/25/22 13:01 Primary care physician: Berhane Chung MD Consults: 08/25/22 13:33 Consult to Hematology / Oncology Routine Consulting Provider: Mathew Pierce Reason for consultation: metastatic small cell lung ca DS: Diagnosis Discharge Diagnosis (1) Metastases to the liver: Status: Acute (2) Lung cancer: Status: Acute (3) Hypoxia: Status: Acute (4) Liver mass: Status: Acute (5) COPD (chronic obstructive pulmonary disease): Status: Acute DS: Summary Hospital Course Hospital Course: History of presenting illness Chief complaint shortness of breath and wheeze 86 years old lady with you of 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 She was initially diagnosed with COVID-19 on July 12 with persistence of symptoms and was not admitted August 10 again positive for COVID-19 and treated with IV steroids, azithromycin, ceftriaxone, and DuoNebs.? She was placed on supplemental oxygen and was supposed to be placed into rehab setting with order for home O2 but states this does not occur.? States shortness of breath had been worsening prompting her return to the ED.? Patient also had recent biopsy the liver which showed small cell carcinoma with history of small-cell lung cancer status post right lower lobectomy.? She does follow with Dr. Pierce in Oncology.? She denies any fevers, chills, rhinorrhea, nasal congestion, sore throat, lightheadedness, abdominal pain, nausea, vomiting, blurred vision, urinary symptoms, or chest pain.? In the ED, EKG showed sinus tachycardia with PACs, HR 106.? CTA chest was negative for pulmonary embolism.? Did show moderate interval improvement in patchy airspace opacities in the left upper lobe compared to prior.? There is a consolidative masslike opacity in the region extending into the adjacent mediastinum encasing the left upper lobe pulmonary artery and left upper lobe bronchus consistent with inflammatory versus infectious process possibly a malignant neoplastic origin.? There is also stable left superior mediastinal and left anterior lateral mediastinal adenopathy as well as a 1.3 cm lucent lesion in the T2 body which is nonspecific but could represent metastatic lesion.? Patient presenting symptoms were initially thought to be secondary to persistent COVID symptoms worsened by lung cancer and initially was without hypoxia and was being considered for short-term rehab versus snf.? However this morning, patient developed tachypneic with respiratory rate up to 30 requiring 2 L supplemental oxygen to maintain oximetry over 90%.? She is also noted to have diffuse wheezing and was given DuoNeb and 60 mg IV Solu-Medrol.? As result, patient is being recommended for admission for COPD exacerbation and acute hypoxemic respiratory failure in the setting of metastatic small cell lung cancer. 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 #Acute hypoxemic respiratory failure secondary to acute COPD exarbation/underlying lung cancer, CTA chest negative for PE with interval resolution of consolidatied mass-like opacity with recent treatment for pneumonia COVID-19 negative, patient treated in-house with updraft treatment IV Solu Medrol, no antibiotics indicated, patient has chronic leukocytosis likely due to steroids and no sepsis case discussed with patient family and they wishes hospice management, therefore patient is being discharged home on morphine, Ativan as needed albuterol and oxygen treatment . 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 Pierce due to patient age and multiple comorbidities she agrees with hospice management. #Hyperbilirubinemia with elevated LFTs -likely due to enlarged liver with large burden of hepatic metastatic says, U/S RUQ showed intra hepatic biliary ductal dilatation no obstruction -Bili 2.5. Initial tachycardia and tachypnea secondary to increased work of breathing/COPD exacerbation. Tachycardia has resolved. Leukocytosis is chronic and trending down following steroid use. No severe sepsis. #Pain RLE -Venous duplex negative for DVT #History PE -Completed xarelto 20mg.? #HTN- controlled not on antihypertensive Time Spent with Patient Time attestation: Total time spent providing and/or coordinating discharge services: Discharge coordination time: Greater than 30 minutes Quality: Safe Use of Opioids Does Pt have an Active Cancer Diagnosis on the Problem List?: No Quality: Stroke Does the patient have a stroke diagnosis?: No Physical Exam Vital Signs: Vital Signs: Last Vital Signs Temp 97.7 F 08/27/22 11:03 Pulse 106 H 08/27/22 11:45 Resp 18 08/27/22 11:45 BP 125/58 L 08/27/22 11:03 Pulse Ox 96 08/27/22 11:03 O2 Del Method 08/27/22 11:03 O2 Flow Rate 2 08/27/22 11:03 BMI result Body Mass Index 34.0 Const: Other: General awake alert, in mild respiratory distress. Anicteric sclera Neck? supple no JVD. CVS? regular rate rhythm, Respiratory bilateral rhonchi, noted to be short of breath talking no use of accessory muscles Gastrointestinal abdomen soft, nontender, bowel sounds audible Extremities bilateral pitting edema to. Neuro nonfocal Skin no rash DS: Data Data Completed and Pending Labs on day of discharge: Laboratory Results - last 24 hr 08/27/22 06:03 Sodium 137 Potassium 4.6 Chloride 102 Carbon Dioxide 21 L Anion Gap 19 BUN 32 H Creatinine 0.79 Estim Creat Clear Calc 53.5 Estimated GFR > 60 Random Glucose 130 H Calcium 8.9 Total Bilirubin 1.5 H AST 112 H ALT 150 H Alkaline Phosphatase 377 H Total Protein 5.3 L Albumin 3.0 L Discharge Plan Discharge Anticipated Discharge Date/Time: 08/27/22 14:24 Patient Disposition: Hospice - Home Discharge Diagnosis: Acute hypoxic respiratory failure due to acute COPD exacerbation and lung ca Metastatic small cell lung cancer to bones and liver Elevated LFTs Back pain Referrals: Shaun NORMAN [Outside] - 1 Week Berhane Chung MD [Primary Care Provider] - 1 Week Discharge Medications: New morphine concentrate 100 mg/5 mL (20 mg/mL) solution 5 mg PO Q3H PRN (Reason: pain/comfort) 15 Days Qty: 30 0RF Rx Instructions: Partial Fill upon patient request. lorazepam 0.5 mg tablet 0.5 mg PO Q6H PRN (Reason: anxiety/restlessness) 4 Days Qty: 16 0RF lorazepam [Lorazepam Intensol] 2 mg/mL concentrate 0.5 mg PO Q4H PRN (Reason: anxiety/restlessness) Qty: 30 0RF Continued Breo Ellipta 200-25 mcg/dose blister with device 1 inh PO DAILY 90 Days Qty: 180 3RF albuterol sulfate 90 mcg/actuation Hfa Aerosol Inhaler 2 puff INHALATION Q6H PRN (Reason: Wheezing) dextromethorphan-guaifenesin 10-100 mg/5 mL Syrup 5 ml PO Q4H PRN (Reason: cough) Qty: 237 0RF cholecalciferol (vitamin D3) 25 mcg (1,000 unit) capsule 25 mcg PO DAILY ascorbate calcium (vitamin C) 500 mg tablet 500 mg PO DAILY aspirin 81 mg tablet,delayed release (DR/EC) 81 mg PO DAILY Discontinued Praluent Pen 75 mg/mL pen injector 75 mg subcut Q2W 90 Days Qty: 7 3RF prednisone 20 mg Tablet 40 mg PO DAILY Qty: 10 0RF oxycodone 5 mg tablet 5 mg PO Q6H PRN (Reason: sob, mod pain) Qty: 30 0RF Rx Instructions: Partial Fill upon patient request. Discharge Orders: Discharge Order (Routine); Ordered 08/27/22 Ordered By: Kacey Camacho Diet: Advance to usual diet Activity on Discharge: As tolerated Stand Alone Forms: Patient Portal Discharge page Print Language: Citizen Of [place] Care Plan Goals: small cell lung cancer with bone and liver Mets being discharged home with hospice/patient back pain and persistent shortness of breath continue O2/and pain medicines as ordered Health Concerns: As above Plan of Treatment: Outpatient follow-up with primary care physician Assessment: As above Discharge Date/Time: 08/27/22 17:24
--- NOTE | 2022-08-27 15:11 | P.CNHO_ITS ---
Subjective - Subjective Chief complaint: Consult for: Small cell carcinoma of the lung. Patient: known to practice within the last 3 years Consult date: 08/27/22 Requesting Physician: Kj Camacho, Primary Care Provider: Berhane Chung MD Medical Summary: DIAGNOSIS: SMALL CELL CARCINOMA OF THE LUNG. LIVER METS. HPI - Consult Narrative Reason for consult: CONSULT FOR: METASTATIC SMALL CELL CARCINOMA. Narrative: Dai Cook is a pleasant 86 year old lady with SCC lung CA with new mets found on the liver, presented to the ED complaining of persistent shortness of breath and back pain. She was initially diagnosed with COVID-19 on July 12 with persistence of symptoms. She was admitted August 10 again positive for COVID-19 and treated with IV steroids, azithromycin, ceftriaxone, and DuoNebs. She was placed on supplemental oxygen and was supposed to be placed into rehab setting with order for home O2 but this did not occur. States shortness of breath had been worsening prompting her return to the ED. Patient had a recent biopsy the liver which showed small cell carcinoma with history of small-cell lung cancer status post right lower lobectomy. She denies any fevers, chills, rhinorrhea, nasal congestion, sore throat, lightheadedness, abdominal pain, nausea, vomiting, blurred vision, urinary symptoms, or chest pain. In the ED, EKG showed sinus tachycardia with PACs, HR 106. CTA chest was negative for pulmonary embolism. Did show moderate interval impr ovement in patchy airspace opacities in the left upper lobe compared to prior. There is a consolidative masslike opacity in the region extending into the adjacent mediastinum encasing the left upper lobe pulmonary artery and left upper lobe bronchus consistent with inflammatory versus infectious process possibly a malignant neoplastic origin. There is also stable left superior mediastinal and left anterior lateral mediastinal adenopathy as well as a 1.3 cm lucent lesion in the T2 body which is nonspecific but could represent metastatic lesion. Patient's presenting symptoms were initially thought to be secondary to persistent COVID symptoms worsened by lung cancer and initially was without hypoxia and was being considered for short-term rehab versus custodial. However day of admission, patient developed tachypneic with respiratory rate up to 30 requiring 2 L supplemental oxygen to maintain oximetry over 90%. She was also noted to have diffuse wheezing and was given DuoNeb and 60 mg IV Solu-Medrol. As result, patient was admitted for COPD exacerbation and acute hypoxemic respiratory failure in the setting of metastatic small cell lung cancer. Past medical history: DJD, HTN, COPD. Review of Systems - Constitutional Reports system reviewed and no additional complaints, except as documented, Reports fatigue, Reports fever(s), Reports lack of energy, Reports malaise, Reports weakness, Reports weight loss - Eyes Reports system reviewed and no additional complaints, except as documented, Denies blurry vision - ENT Reports system reviewed and no additional complaints, except as documented - Cardiovascular Reports system reviewed and no additional complaints, except as documented, Reports shortness of breath when lying down, Denies chest pain at rest - Respiratory Reports no additional respiratory complaints, Reports chest congestion - Gastrointestinal Reports system reviewed and no additional complaints, except as documented, Denies abdominal pain, Denies vomiting blood - Genitourinary Reports no additional female genitourinary complaints, Denies abnormal periods - Musculoskeletal Reports system reviewed and no additional complaints, except as documented, Reports abnormal walking, Reports back pain - Integumentary/Breasts Skin/Breast: Reports no additional skin complaints - Neurologic Denies dizziness, Denies loss of vision, Denies numbness, Denies tingling - Psychiatric Reports system reviewed and no additional complaints, except as documented, Reports anxiety - Endocrine Reports no additional endocrine complaints, Reports flushing - Hematologic/Lymphatic Reports system reviewed and no additional complaints, except as documented, Denies easy bruising - Allergic/Immunologic Reports system reviewed and no additional complaints, except as documented, Denies GI upset with certain foods PMFSH Medical History: Medical History (Last Reviewed 08/25/22 @ 19:11 by Roberto Bonilla RN) Asthma 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 Carotid stenosis, bilateral Cerebrovascular accident, embolic Change in mole COPD (chronic obstructive pulmonary disease) Encounter for general adult medical examination with abnormal findings FH: total knee replacement Hospital discharge follow-up Hypertension Lung mass Metastases to the liver Obesity Obesity Other and unspecified hyperlipidemia Pneumonia Pulmonary embolism Shortness of Breath Family History: Family History (Last Reviewed 08/25/22 @ 13:19 by RENEE Ellison) Father Cancer Mother Cerebral aneurysm Breast cancer Sister Cancer Surgical History: Surgical History (Last Reviewed 08/25/22 @ 19:11 by Roberto Bonilla RN) History of appendectomy History of cholecystectomy History of hysterectomy History of lobectomy of lung History of total right hip replacement Social History: Social History (Last Updated 08/25/22 @ 19:11 by Roberto Bonilla RN) Living Situation History: Household Members: Spouse Household Members Other:: 2 grandchildren Housing: House Are you a primary congregational care pastor to a significant other at home: No Do you presently have visiting nurse or other home services: Yes Tobacco History: Patient Tobacco Use Status: Former Tobacco user Tobacco use type: Cigarette Years Smoked: 50 years Smoke Quit Date: 10+ years ago e-Cigarette/Vaping Use: Never Used Occupation Assessmet: service: No Current occupational status: retired Current occupational status: disabled Home Medications and Allergies Current Medications: Current Medications Acetaminophen (Acetaminophen 325 Mg Tablet) 650 mg PO TID [facility] Last Admin: 08/27/22 08:14 Dose: 650 mg Albuterol Sulfate (Albuterol Sulfate (0.083%) 2.5 Mg/3 Ml Vial.Neb) 2.5 mg INHALE Q2H PRN PRN Reason: Shortness of Breath/Wheezing Last Admin: 08/25/22 22:08 Dose: 2.5 mg Albuterol/Ipratropium (Albuterol/Iprat 2.5/0.5mg 3 Ml Ampul.Neb) 3 ml INHALE RQ4H WHILE AWAKE [facility] Last Admin: 08/27/22 11:44 Dose: 3 ml Ascorbic Acid (Ascorbic Acid 500 Mg Tablet) 500 mg PO DAILY [facility] Last Admin: 08/27/22 08:14 Dose: 500 mg Aspirin (Aspirin Enteric Coated 81 Mg Tablet.Dr) 81 mg PO DAILY [facility] Last Admin: 08/27/22 08:14 Dose: 81 mg Hydromorphone HCl (Hydromorphone Hcl 0.5 Mg/0.5 Ml Syringe) 0.25 mg IVPUSH Q4H PRN; Protocol PRN Reason: Pain, Severe (Pain Scale 7-10) Last Admin: 08/27/22 12:18 Dose: 0.25 mg Methylprednisolone Sodium Succinate (Methylprednisolone Sod Succ 40 Mg/Ml Vial) 40 mg IVPUSH Q12H [facility] Last Admin: 08/27/22 08:14 Dose: 40 mg Ondansetron HCl (Ondansetron Hcl 4 Mg/2 Ml Vial) 4 mg IVPUSH Q8H PRN PRN Reason: Nausea and Vomiting Oxycodone HCl (Oxycodone Hcl Immed Release 5 Mg Tablet) 5 mg PO Q6H PRN PRN Reason: Pain, Moderate (Pain Scale 4-6 Oxycodone HCl (Oxycodone Hcl Er 10 Mg Tab.Er.12h) 10 mg PO BID [facility] Last Admin: 08/27/22 08:14 Dose: 10 mg Pharmacy Consult (Consult Rx Perform Med Rec) 1 each MISCELLANE ONCE PRN PRN Reason: Consult order Sodium Chloride (0.9 % Sodium Chloride Flush 3 Ml Syringe) 3 ml IVFLUSH QSHIFT [facility] Last Admin: 08/27/22 08:15 Dose: 3 ml Vitamin D (Cholecalciferol (Vitamin D3) 25 Mcg Tablet) 25 mcg PO DAILY [facility] Last Admin: 08/27/22 08:14 Dose: 25 mcg Home Medications Medication Instructions Recorded Confirmed Type aspirin 81 mg tablet,delayed 81 mg PO DAILY 09/09/20 08/24/22 History release ascorbate calcium (vitamin C) 500 500 mg PO DAILY 09/16/20 08/24/22 History mg tablet cholecalciferol (vitamin D3) 25 25 mcg PO DAILY 09/16/20 08/24/22 History mcg (1,000 unit) capsule albuterol sulfate 90 mcg/actuation 2 puff inhalation Q6H PRN Wheezing 08/10/22 08/24/22 History aerosol inhaler Allergies Allergy/AdvReac Type Severity Reaction Status Date / Time Igkeovi-UIP-KyB Reductase Allergy Mild MENTAL Verified 08/10/22 08:23 Inhibitor CHANGES [[id number] REDUCTASE INHIBITOR] rosuvastatin [Crestor] Allergy Unknown weakness,muscle Verified 08/10/22 08:23 aches Physical Exam Vital signs: Vital Signs Temp 98.4 F 08/27/22 15:00 Pulse 114 H 08/27/22 15:00 Resp 19 08/27/22 15:00 BP 137/59 L 08/27/22 15:00 Pulse Ox 97 08/27/22 15:00 O2 Del Method 08/27/22 15:00 O2 Flow Rate 2 08/27/22 15:00 FiO2 97 08/27/22 15:00 Intake & Output 08/26/22 08/27/22 08/27/22 18:59 06:59 18:59 Intake Total 600 / 650 50 / 650 240 / 240 Balance 600 / 650 50 / 650 240 / 240 Intake: Intake, Oral Amount 600 / 650 50 / 650 240 / 240 Other: Breakfast % Eaten 100% 25% Lunch % Eaten 50% 25% Number of Incontinent Voids 1 Number of Unmeasured Voids 1 1 Number of Bowel Movements 1 0 Urine Bedside Commode Bedside Commode Urine Color Ray Stool Bedside Commode Bedside Commode Stool Amount Small Stool Color Brown Weight 87.12 kg - Constitutional Present: moderate distress - Routine HEENT Exam Head: Present: normocephalic ENT: Present: mucous membranes moist - Routine Neck Exam Present: supple - Routine Respiratory Exam Present: decreased breath sounds - Routine Cardiovascular Exam Cardiovascular: Present: RRR, S1, S2 - Routine Abdominal Exam Present: distended, firm, tenderness, nontender - Routine Extremities Exam Present: nontender - Routine Neurological Exam Present: alert, oriented X3, normal speech - Detailed Neurological Exam: Coma Scale Eye Opening: Spontaneous (4) Verbal Response: Oriented (5) Motor Response: Obeys commands (6) Yelena Coma Scale Total: 15 Hem/Onc Consult Result - Labs CBC & Chem 7: 08/24/22 09:07 08/27/22 06:03 Labs: BMP 08/27/22 06:03 Sodium 137 Potassium 4.6 Chloride 102 Carbon Dioxide 21 L BUN 32 H Creatinine 0.79 Calcium 8.9 Liver Function 08/27/22 Range/Units 06:03 Total Bilirubin 1.5 H (0.0-1.0) mg/dL AST 112 H (5-31) U/L ALT 150 H (0-31) U/L Alkaline Phosphatase 377 H (39-117) U/L Albumin 3.0 L (3.5-5.0) g/dL Assessment and Plan Patient Active problem list reviewed?: Yes (1) Small cell carcinoma Status: Acute Assessment and plan: This is a pleasant 86 year-old lady with the history of 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 She was noted to have a right upper lobe pulmonary nodule that grew over time. 03/08/19 she underwent surgical wedge resection for diagnostic purposes. This came back positive for squamous cell carcinoma. She underwent right upper lobectomy/anatomic resection with mediastinal adenopathy at the same setting. Pathology: Squamous cell carcinoma. Stage I disease. She did not need adjuvant chemotherapy. She had a CT scan 08/16/19 which revealed: Postoperative change following right upper lobe lung resection. Small 9 mm density adjacent to the surgical staple line, question representing postsurgical change. Arterial sclerotic disease coronary artery calcification and slightly dilated descending thoracic aorta. CT chest from 03/10/20 revealed: Stable postop appearance of the chest. CT scan of the chest from 09/19/2020 revealed: Stable postsurgical changes following right upper lobe lobectomy. She is clinically doing well. She had a cat scan of the chest on 12/18, which just revealed post op findings. She had an MRI of the brain on 06/21 which revealed: No acute intracranial process. Chronic high right parietal lobe infarct. [id number] chronic white matter microangiopathy. Indeterminate 1.1 cm high right parietal calvarial lesion, new when compared to imaging from 01/2013. Given that this osseous lesion is a new finding, a nuclear bone scan would be recommended in followup for further evaluation. Bone scan was done on 07/26 and revealed: 1. A few mild nonspecific abnormalities including in the right parietal bone and several ribs are noted as described above and these are suspicious for metastatic disease. The rib lesions could also be due to healing fractures. 2. A few additional abnormalities are noted particularly in the shoulders, sternoclavicular joints, hands, and left ankle region as described above and these are all likely arthritic or traumatic in etiology. None of these abnormalities is strongly suspicious for metastatic disease. Back on 08/10, the patient was very dyspneic and frail-appearing. I offered to send her to the ER. Initially she declined but then I was able to convince her. CBC: 15.1/11.5/35.5/415. CT of the chest was done which revealed: No evidence of PE. No evidence aortic dissection. Large left upper lobe confluent mass or consolidation with extension to the mediastinum. There are abnormal mediastinal lymph nodes. Findings are highly suspicious for primary lesion. There are multiple hypodense liver lesions with central low density likely metastatic nodules. There is mild hepatomegaly. No abnormal abdominal or pelvic lymph nodes seen. Bilateral renal cysts. Colonic diverticulosis most prominent in the sigmoid region but no diverticulitis seen. In addition, she tested positive for COVID. She was readmitted to the hospital,on 08/20, with Acute hypoxemic respiratory failure secondary to acute COPD exarbation/underlying lung cancer. CTA chest negative for PE with interval resolution of consolidatied mass-like opacity with recent treatment for pneumonia COVID-19 negative, She was treated in-house with updraft treatment IV Solu Medrol no antibiotics were recommended. Patient has chronic leukocytosis likely due to steroids and no sepsis. Case discussed with patient and the family. They have wished for hospice management, therefore patient is being discharged home on morphine, Ativan as needed albuterol and oxygen treatment. Diagnosis: Metastatic small cell lung cancer to the bones and liver. Bone scan 07/22 showing probable bony mets with liver bx 08/18 positive for small cell carcinoma. Patient has advanced cancer. On account of patient's age and multiple comorbidities, hospice referral is appropriate. She is obviously SOB, even at rest. She is at high Risk of significant toxicity even if she was to undergo systemic chemotherapy. PLAN: The decision has been made for patient to go home with hospice care I will be happy to care for her along with the hospice team. Thank you, CC: Dr.Asma Sheldon Riley. Dr. Mcguire. - Time Spent With Patient Time Spent with Patient (in minutes): 30
== END 2022-08-27 17:24 | disposition hospice, home (50) | DRG 191 ==
LOC: HO.ED 08-25 10:43 → HO.EDOVER 08-25 13:11 → HO.IMC 08-25 16:40
PROVIDERS: Physician Assistant Medical; Admitting Provider Physician Assistant; Emergency Provider Emergency Medicine Emergency Medical Services; PCP Internal Medicine; Visit Provider Hospitalist
DX: J44.1 Chronic obstructive pulmonary disease with (acute) exacerbation (principal); C34.11 Malignant neoplasm of upper lobe, right bronchus or lung; C78.7 Secondary malignant neoplasm of liver and intrahepatic bile duct; C79.51 Secondary malignant neoplasm of bone; Z66 Do not resuscitate; I10 Essential (primary) hypertension; I25.10 Atherosclerotic heart disease of native coronary artery without angina pectoris; G89.3 Neoplasm related pain (acute) (chronic); E78.5 Hyperlipidemia, unspecified; Z20.822 Contact with and (suspected) exposure to COVID-19; Z51.5 Encounter for palliative care; Z90.2 Acquired absence of lung [part of]; Z96.653 Presence of artificial knee joint, bilateral; Z86.711 Personal history of pulmonary embolism; Z96.641 Presence of right artificial hip joint; Z86.16 Personal history of COVID-19; Z88.8 Allergy status to other drugs, medicaments and biological substances; Z79.51 Long term (current) use of inhaled steroids; Z79.82 Long term (current) use of aspirin; Z79.899 Other long term (current) drug therapy
CPT/HCPCS: 36415; 71275; 74176; 76705; 80053; 82803; 83735; 84484; 85025; 87635; 93005; 93971; 94640; 97162; 99285; J1170; J2270; J2920; J2930; Q9967